=== PATIENT | female | born 1970 | race Caucasian/White ===

== ENCOUNTER 2017-02-13 15:17 | Emergency (ER) | payer MEDICAID ==
[~2017-02-13] VITALS: Ht 152.4 cm; Wt 73.7 kg
[~2017-02-13 15:17] MED LIST: ALPR0.5T6 PO; AMLO5TAB2 PO; ATOR20TA9 PO; CEFU500T PO; CIPR500T3 PO; CITA20TA5 PO; CITA20TA9 PO; EZET1TAB4 PO; FERR325T20 PO; FURO40TA6 PO; IBUP400T PO; INSU100C5 SQ-INSULIN; INSU100I13 SQ-INSULIN; INSU100I17 SQ-INSULIN; INSU100I7 SQ-INSULIN; INSU100V8 SQ; IRBE150T25 PO; LISI-167 PO; LISI40TA PO; MELO-184 PO; NITR100C PO; OXYC-302 PO; OXYC1TAB7 PO; OXYC5TAB3 PO; SODI650T PO; SUCR1ORA2 PO; SULF1TAB24 PO; TRAM-28 PO
[2017-02-13 15:46] VITALS: BP 141/66
[2017-02-13 16:13] LABS: HEMOGLOBIN 10.5 g/dL (11.7-16.4)
[2017-02-13 16:24] LABS: ASPARTATE AMINO TRANSFERASE 19 U/L (15-37); BLOOD UREA NITROGEN 17 mg/dL (7-18)
[2017-02-13] MEDS ORDERED: INSULIN SINGLE DOSE, ER SQ-INSULIN ONE (16:58)
[2017-02-13] MEDS ORDERED: INSULIN REGULAR 100 UNITS/ML, 3ML VIAL SQ-INSULIN ONE (17:00)
== END 2017-02-13 17:59 | disposition home or self-care (01) ==
LOC: ED 17:27
DX: R10.12 Left upper quadrant pain (principal); R10.32 Left lower quadrant pain; R11.2 Nausea with vomiting, unspecified; I12.9 Hypertensive chronic kidney disease with stage 1 through stage 4 chronic kidney disease, or unspecified chronic kidney disease; N18.3 Chronic kidney disease, stage 3 (moderate); Z99.2 Dependence on renal dialysis; E11.65 Type 2 diabetes mellitus with hyperglycemia; Z90.49 Acquired absence of other specified parts of digestive tract; Z90.710 Acquired absence of both cervix and uterus; Z88.6 Allergy status to analgesic agent; Z88.8 Allergy status to other drugs, medicaments and biological substances
CPT/HCPCS: 36415; 74020; 80048; 80076; 82040; 83690; 85025; 96372

== ENCOUNTER 2017-04-04 23:56 | Emergency (ER) | payer MEDICAID ==
[~2017-04-04] VITALS: Ht 165.1 cm; Wt 78.8 kg
[2017-04-05] MEDS ORDERED: MORPHINE SULFATE 4 MG/ML, 1ML ONE (00:56)
[2017-04-05] MEDS ORDERED: ONDANSETRON 2MG/ML, 2ML ONE (00:57)
[2017-04-05] MEDS ORDERED: FAMOTIDINE 20 MG/2 ML ONE (00:58)
[2017-04-05] MEDS ORDERED: SODIUM CHLORIDE 0.9% 1,000ML IVBOLUS ONE ×2 (01:00)
[2017-04-05] MEDS ORDERED: ONDANSETRON 2MG/ML, 2ML IVPush ONE (01:00)
[2017-04-05] MEDS ORDERED: FAMOTIDINE 20 MG/2 ML IVP ONE (01:00)
[2017-04-05] MEDS: MORPHINE SULFATE 4 MG/ML, 1ML IVPush PRN ×2 (01:00→01:01)
[2017-04-05] MEDS ORDERED: SODIUM CHLORIDE FLUSH 10ML SYR IVF ONE ×2 (01:00)
[2017-04-05 01:06] LABS: ASPARTATE AMINO TRANSFERASE 14 U/L (15-37); BLOOD UREA NITROGEN 50 mg/dL (7-18)
[2017-04-05] MEDS ORDERED: OMNIPAQUE 350 MG/ML, 100ML BOTTLE ONE (01:57)
[2017-04-05] MEDS ORDERED: DIPHENHYDRAMINE 25 MG CAPSULE ONE (02:06)
[2017-04-05 02:08] VITALS: BP 165/65
[2017-04-05] MEDS ORDERED: DIPHENHYDRAMINE 25 MG CAPSULE PO ONE (02:30)
== END 2017-04-05 02:28 | disposition home or self-care (01) ==
LOC: ED 23:59
DX: K59.00 Constipation, unspecified (principal); E78.5 Hyperlipidemia, unspecified; E11.65 Type 2 diabetes mellitus with hyperglycemia; I12.9 Hypertensive chronic kidney disease with stage 1 through stage 4 chronic kidney disease, or unspecified chronic kidney disease; N18.3 Chronic kidney disease, stage 3 (moderate); Z90.49 Acquired absence of other specified parts of digestive tract; Z90.710 Acquired absence of both cervix and uterus
CPT/HCPCS: 36415; 74177; 80053; 81001; 83690; 85025; 87086; 96361; 96374; 96375; 99285; J2405; J7030; Q0163; Q9967; S0028

== ENCOUNTER 2017-04-20 11:41 | Emergency (ER) | payer MEDICARE, MEDICAID ==
[2017-04-20] MEDS ORDERED: ONDANSETRON 2MG/ML, 2ML ONE (12:38)
[2017-04-20] MEDS ORDERED: DIPHENHYDRAMINE 50 MG/ML, 1ML ONE (12:38)
[2017-04-20] MEDS ORDERED: MORPHINE SULFATE 4 MG/ML, 1ML ONE (12:38)
[2017-04-21 16:53] LABS: ASPARTATE AMINO TRANSFERASE 28 U/L (15-37); BLOOD UREA NITROGEN 24 mg/dL (7-18); IS PT STATUS REG ER OR PRE ER? YES
== END 2017-04-20 15:24 ==
LOC: ED 11:41
DX: R07.89 Other chest pain (principal); E11.22 Type 2 diabetes mellitus with diabetic chronic kidney disease; N18.3 Chronic kidney disease, stage 3 (moderate); R10.12 Left upper quadrant pain; K59.00 Constipation, unspecified; Z88.6 Allergy status to analgesic agent
CPT/HCPCS: 36415; 74022; 80048; 80076; 81001; 82040; 83690; 84484; 84703; 85025; 87077; 87086; 87186; 93005; 99285

== ENCOUNTER 2017-04-26 01:26 | Emergency (ER) | payer MEDICARE, MEDICAID ==
[~2017-04-26] VITALS: Ht 165.1 cm; Wt 81.3 kg
[2017-04-26] MEDS ORDERED: MORPHINE SULFATE 4 MG/ML, 1ML ONE (01:56)
[2017-04-26] MEDS ORDERED: ONDANSETRON 2MG/ML, 2ML ONE (01:56)
[2017-04-26 01:59] LABS: PATH.CAST-FLAG NOT PRESENT; SPERM-FLAG NOT PRESENT; SRC-FLAG NOT PRESENT; XTAL-FLAG NOT PRESENT; YLC-FLAG NOT PRESENT
[2017-04-26] MEDS ORDERED: MORPHINE SULFATE 4 MG/ML, 1ML IVPush PRN (02:00)
[2017-04-26] MEDS ORDERED: ONDANSETRON 2MG/ML, 2ML IVPush ONE (02:00)
[2017-04-26 02:10] LABS: HCG UR OBC PASS
[2017-04-26 02:42] LABS: ASPARTATE AMINO TRANSFERASE 19 U/L (15-37); BLOOD UREA NITROGEN 49 mg/dL (7-18)
[2017-04-26] MEDS ORDERED: ONDANSETRON ODT 4 MG ONE (03:08)
[2017-04-26] MEDS ORDERED: DIPHENHYDRAMINE 25 MG CAPSULE ONE (03:43)
[2017-04-26 04:00] VITALS: BP 137/73
== END 2017-04-26 04:02 | disposition home or self-care (01) ==
LOC: ED 03:39
DX: N30.20 Other chronic cystitis without hematuria (principal); R10.84 Generalized abdominal pain; I12.0 Hypertensive chronic kidney disease with stage 5 chronic kidney disease or end stage renal disease; E11.22 Type 2 diabetes mellitus with diabetic chronic kidney disease; N18.6 End stage renal disease; E78.5 Hyperlipidemia, unspecified; Z90.49 Acquired absence of other specified parts of digestive tract; Z88.8 Allergy status to other drugs, medicaments and biological substances; Z88.6 Allergy status to analgesic agent
CPT/HCPCS: 36415; 74022; 76700; 80053; 81001; 81025; 83690; 85025; 87077; 87086; 96374; 96375; 99285; J2405; 87186

== ENCOUNTER 2017-05-31 13:12 | Day surgery (SDC) | payer MEDICAID ==
[~2017-05-31] VITALS: Ht 165.1 cm; Wt 82.0 kg
[~2017-05-31 13:12] MED LIST changes: +BUPIVACAINE/PF-EPI 0.5% 1:200K ONE; +CEFAZOLIN 1,000 MG ONE; +CHOL100011 PO; +HEPARIN 1,000 UNITS/ML, 10ML ONE; +ONDANSETRON 2MG/ML, 2ML ONE; +PROPOFOL 10 MG/ML, 20ML ONE; +THROMBIN 5,000 UNIT VIAL TP ONE
[2017-05-31] MEDS ORDERED: SODIUM CHLORIDE 0.9% 1,000 ML IV SCH (14:37)
[2017-05-31 15:12] VITALS: BP 144/84
[2017-05-31 15:20] LABS: HCG UR OBC PASS
[2017-05-31] MEDS ORDERED: MIDAZOLAM 1 MG/ML, 2ML ONE (15:30)
[2017-05-31] MEDS ORDERED: FENTANYL PF 250 MCG/5ML ONE (15:30)
[2017-05-31] MEDS ORDERED: DIPHENHYDRAMINE 50 MG/ML, 1ML IVPush PRN (16:30)
[2017-05-31] MEDS ORDERED: ACETAMINOPHEN 325 MG TABLET PO PRN (16:30)
[2017-05-31] MEDS ORDERED: ONDANSETRON 2MG/ML, 2ML IVPush PRN (16:30)
[2017-05-31] MEDS ORDERED: DIPHENHYDRAMINE 50 MG/ML, 1ML ONE (17:05)
[2017-05-31] MEDS ORDERED: FENTANYL PF 100 MCG/2ML ONE (17:05)
[2017-05-31] MEDS: FENTANYL PF 100 MCG/2ML IV PRN ×2 (17:15→17:25)
[2017-05-31] MEDS ORDERED: HYDROmorphone 1 MG/ML, 1ML ONE ×2 (17:19→17:43)
[2017-05-31] MEDS: HYDROmorphone 1 MG/ML, 1ML IV PRN ×5 (17:20→18:05)
[2017-05-31] MEDS ORDERED: LABETALOL 5MG/ML, 20ML ONE (17:46)
[2017-05-31] MEDS: LABETALOL 5MG/ML, 20ML IV PRN ×3 (17:48→18:05)
[2017-05-31] MEDS ORDERED: OXYcodone 5 MG/5 ML ORAL.SOL UDC ONE (18:26)
[2017-05-31] MEDS ORDERED: OXYcodone 5 MG/5 ML ORAL.SOL UDC PO PRN (18:30)
[2017-05-31] MEDS ORDERED: HEPARIN 1,000 UNITS/ML, 1ML IV ONE (19:30)
[2017-05-31] MEDS ORDERED: OXYcodone/APAP 5/325MG TABLET ONE (20:03)
[2017-05-31] MEDS ORDERED: OXYcodone/APAP 5/325MG TABLET PO ONE (20:30)
== END 2017-05-31 20:35 ==
LOC: OUT 13:12
PROVIDERS: ATTEND Surgery Vascular Surgery
DX: E11.22 Type 2 diabetes mellitus with diabetic chronic kidney disease (principal); N18.6 End stage renal disease; F32.9 Major depressive disorder, single episode, unspecified; Z88.8 Allergy status to other drugs, medicaments and biological substances; Z91.012 Allergy to eggs
CPT/HCPCS: 36415; 36821; 80047; 81025; 82962; 93005; J0690; J1170; J1200; J1644; J2250; J2405; J2704; J3010

== ENCOUNTER 2017-06-06 20:25 | Emergency (ER) | payer MEDICAID ==
[~2017-06-06] VITALS: Ht 165.1 cm; Wt 82.5 kg
[~2017-06-06 20:25] MED LIST changes: -BUPIVACAINE/PF-EPI 0.5% 1:200K ONE; -CEFAZOLIN 1,000 MG ONE; -HEPARIN 1,000 UNITS/ML, 10ML ONE; -ONDANSETRON 2MG/ML, 2ML ONE; -PROPOFOL 10 MG/ML, 20ML ONE; -THROMBIN 5,000 UNIT VIAL TP ONE
[2017-06-06] MEDS ORDERED: DIPHENHYDRAMINE 50 MG/ML, 1ML IM ONE (21:30)
[2017-06-06] MEDS ORDERED: NITROFURANTOIN (MACROBID) 100 MG CAPSULE PO ONE (21:30)
[2017-06-06] MEDS ORDERED: HYDROmorphone 1 MG/ML, 1ML IM ONE (21:30)
[2017-06-06] MEDS ORDERED: HYDROmorphone 1 MG/ML, 1ML ONE (21:35)
[2017-06-06] MEDS ORDERED: DIPHENHYDRAMINE 50 MG/ML, 1ML ONE (21:36)
[2017-06-06 21:38] LABS: PATH.CAST-FLAG NOT PRESENT; SPERM-FLAG NOT PRESENT; SRC-FLAG NOT PRESENT; XTAL-FLAG NOT PRESENT; YLC-FLAG NOT PRESENT
[2017-06-06 21:57] LABS: BLOOD UREA NITROGEN 46 mg/dL (7-18)
[2017-06-06 22:34] VITALS: BP 157/66
== END 2017-06-06 23:45 | disposition home or self-care (01) ==
LOC: ED 21:44
DX: N30.01 Acute cystitis with hematuria (principal); E11.22 Type 2 diabetes mellitus with diabetic chronic kidney disease; I12.9 Hypertensive chronic kidney disease with stage 1 through stage 4 chronic kidney disease, or unspecified chronic kidney disease; N18.3 Chronic kidney disease, stage 3 (moderate); G43.909 Migraine, unspecified, not intractable, without status migrainosus; E78.5 Hyperlipidemia, unspecified; E11.21 Type 2 diabetes mellitus with diabetic nephropathy; Z90.710 Acquired absence of both cervix and uterus; Z90.49 Acquired absence of other specified parts of digestive tract
CPT/HCPCS: 36415; 80048; 81001; 82040; 85025; 87077; 87086; 96372; 99284; J1170; J1200; 87186

== ENCOUNTER 2017-06-19 01:09 | Emergency (ER) | payer MEDICAID, OTHER ==
[~2017-06-19] VITALS: Ht 165.1 cm; Wt 85.0 kg
[2017-06-19 03:01] LABS: ASPARTATE AMINO TRANSFERASE 15 U/L (15-37); BLOOD UREA NITROGEN 50 mg/dL (7-18)
[2017-06-19 03:05] LABS: IS PT STATUS REG ER OR PRE ER? YES
[2017-06-19] MEDS ORDERED: HYDROmorphone 1 MG/ML, 1ML ONE (04:57)
[2017-06-19] MEDS ORDERED: HYDROmorphone 1 MG/ML, 1ML IM ONE (05:00)
[2017-06-19 05:04] VITALS: BP 157/74
[2017-06-19] MEDS ORDERED: DIPHENHYDRAMINE 25 MG CAPSULE ONE (05:25)
[2017-06-19] MEDS ORDERED: DIPHENHYDRAMINE 25 MG CAPSULE PO ONE (05:30)
== END 2017-06-19 05:52 | disposition home or self-care (01) ==
LOC: ED 05:18
DX: K29.00 Acute gastritis without bleeding (principal); I12.0 Hypertensive chronic kidney disease with stage 5 chronic kidney disease or end stage renal disease; N18.6 End stage renal disease; E11.22 Type 2 diabetes mellitus with diabetic chronic kidney disease; Z99.2 Dependence on renal dialysis
CPT/HCPCS: 36415; 71020; 80053; 83690; 84484; 85025; 93005; 96372; 99285; J1170; Q0163

== ENCOUNTER 2017-08-04 18:45 | Emergency (ER) | payer OTHER ==
[~2017-08-04] VITALS: Ht 165.1 cm; Wt 81.7 kg
[~2017-08-04 18:45] MED LIST changes: +EZET1TAB30 PO; -EZET1TAB4 PO; +FERR325T18 PO; -FERR325T20 PO; +IBUP-1221 PO; -IBUP400T PO; -MELO-184 PO; +MELO15TA24 PO; -SUCR1ORA2 PO; +SUCR1ORA5 PO; -TRAM-28 PO; +TRAM-47 PO
[2017-08-04] MEDS ORDERED: SODIUM CHLORIDE 0.9% 1,000ML IVBOLUS ONE (19:00)
[2017-08-04] MEDS ORDERED: ONDANSETRON 2MG/ML, 2ML IVPush ONE (19:00)
[2017-08-04 19:22] LABS: PH, VENOUS 7.405 pH (7.320-7.420)
[2017-08-04 19:26] LABS: PATH.CAST-FLAG NOT PRESENT; SPERM-FLAG NOT PRESENT; SRC-FLAG NOT PRESENT; XTAL-FLAG NOT PRESENT; YLC-FLAG NOT PRESENT
[2017-08-04 19:30] LABS: HEMATOCRIT 36.3 % (34.6-47.8); HEMOGLOBIN 11.9 g/dL (11.7-16.4); WHITE BLOOD COUNT 9.6 x10^3/uL (3.4-10)
[2017-08-04] MEDS ORDERED: MORPHINE SULFATE 4 MG/ML, 1ML ONE ×2 (19:33→20:52)
[2017-08-04] MEDS ORDERED: ONDANSETRON 2MG/ML, 2ML ONE ×2 (19:33→20:53)
[2017-08-04 19:34] LABS: ASPARTATE AMINO TRANSFERASE 35 U/L (15-37); BLOOD UREA NITROGEN 22 mg/dL (7-18)
[2017-08-04] MEDS: MORPHINE SULFATE 4 MG/ML, 1ML IVPush PRN ×2 (20:18→21:01)
[2017-08-04] MEDS ORDERED: OMNIPAQUE 350 MG/ML, 100ML BOTTLE ONE (20:51)
[2017-08-04] MEDS ORDERED: PROMETHAZINE 25 MG/ML, 1ML ONE (20:53)
[2017-08-04 22:07] VITALS: BP 144/88
== END 2017-08-04 22:09 | disposition home or self-care (01) ==
LOC: ED 19:20
DX: R19.7 Diarrhea, unspecified (principal); R11.2 Nausea with vomiting, unspecified; I12.9 Hypertensive chronic kidney disease with stage 1 through stage 4 chronic kidney disease, or unspecified chronic kidney disease; Z99.2 Dependence on renal dialysis; E11.65 Type 2 diabetes mellitus with hyperglycemia; E78.5 Hyperlipidemia, unspecified; Z90.49 Acquired absence of other specified parts of digestive tract; Z90.710 Acquired absence of both cervix and uterus; Z79.4 Long term (current) use of insulin; Z79.82 Long term (current) use of aspirin
CPT/HCPCS: 36415; 74177; 80053; 81001; 82010; 82803; 83690; 84703; 85025; 96361; 96374; 96375; 96376; 99285; J2405; J7030; Q9967

== ENCOUNTER 2017-09-04 12:04 | Inpatient (IN) | payer MEDICARE, MEDICAID ==
[~2017-09-04] VITALS: Ht 165.1 cm; Wt 80.6 kg
[2017-09-04] MEDS ORDERED: SODIUM CHLORIDE 0.9% 1,000ML IVBOLUS ONE ×2 (12:30→15:30)
[2017-09-04] MEDS ORDERED: SODIUM CHLORIDE FLUSH 10ML SYR IVF ONE (12:30)
[2017-09-04] MEDS ORDERED: MORPHINE SULFATE 4 MG/ML, 1ML IVPush PRN (12:30)
[2017-09-04] MEDS ORDERED: ONDANSETRON 2MG/ML, 2ML IVPush ONE ×2 (12:30→14:00)
[2017-09-04] MEDS ORDERED: morphine SULFATE 10 MG/ML, 1ML ONE (12:38)
[2017-09-04] MEDS ORDERED: ONDANSETRON 2MG/ML, 2ML ONE ×2 (12:38→14:00)
[2017-09-04 13:04] LABS: HEMATOCRIT 33.6 % (34.6-47.8); HEMOGLOBIN 11.1 g/dL (11.7-16.4); WHITE BLOOD COUNT 10.3 x10^3/uL (3.4-10)
[2017-09-04 13:16] LABS: BLOOD UREA NITROGEN 35 mg/dL (7-18)
[2017-09-04 13:22] LABS: ASPARTATE AMINO TRANSFERASE 18 U/L (15-37)
[2017-09-04 13:56] LABS: PH, VENOUS 7.308 pH (7.320-7.420)
[2017-09-04] MEDS ORDERED: DIPHENHYDRAMINE 50 MG/ML, 1ML IVPush ONE (14:00)
[2017-09-04] MEDS ORDERED: DIPHENHYDRAMINE 50 MG/ML, 1ML ONE (14:00)
[2017-09-04] MEDS ORDERED: PROMETHAZINE 25 MG/ML, 1ML IM PRN ×2 (15:30→20:30)
[2017-09-04] MEDS ORDERED: HYDROmorphone 1 MG/ML, 1ML IV ONE ×3 (15:30→17:00)
[2017-09-04] MEDS ORDERED: CHOL100011 PO (15:36)
[2017-09-04] MEDS ORDERED: INSU100V8 SQ (15:36)
[2017-09-04] MEDS ORDERED: CITA10TA8 PO (15:36)
[2017-09-04] MEDS ORDERED: ATOR20TA PO (15:36)
[2017-09-04] MEDS ORDERED: ASCO-96 PO (15:36)
[2017-09-04] MEDS ORDERED: AMLO10TA2 PO (15:36)
[2017-09-04] MEDS ORDERED: INSU100C5 SQ-INSULIN (15:36)
[2017-09-04] MEDS ORDERED: Benadryl INJ SQ (15:36)
[2017-09-04] MEDS ORDERED: hydrALAzine 20 MG/ML, 1ML IVPush PRN ×2 (16:00→20:30)
[2017-09-04] MEDS ORDERED: BISACODYL 10 MG SUPP PR PRN ×2 (16:00→20:30)
[2017-09-04] MEDS ORDERED: LABETALOL 5MG/ML, 20ML IVPush PRN ×2 (16:00→20:30)
[2017-09-04] MEDS ORDERED: POLYETHYLENE GLYCOL 17 GM PACKET PO PRN ×2 (16:00→20:30)
[2017-09-04] MEDS: HEPARIN 5,000 UNITS/ML, 1ML SQ SCH (16:00)
[2017-09-04] MEDS ORDERED: DIPHENHYDRAMINE 25 MG CAPSULE PO PRN ×2 (16:30→20:30)
[2017-09-04] MEDS ORDERED: ERTAPENEM 0.5 GM in SODIUM CHLORIDE 0.9% 50 ML IV ONE (16:30)
[2017-09-04] MEDS ORDERED: PROMETHAZINE 25 MG/ML, 1ML ONE (16:52)
[2017-09-04] MEDS ORDERED: HYDROmorphone 1 MG/ML, 1ML ONE (16:52)
[2017-09-04] MEDS ORDERED: INSULIN DETEMIR 100 UNITS/ML, PEN SQ-INSULIN SCH (17:00)
[2017-09-04] MEDS: OXYcodone IR 5MG TABLET PO PRN (20:08)
[2017-09-04] MEDS: ACETAMINOPHEN 325 MG TABLET PO PRN (20:08)
[2017-09-04] MEDS: INSULIN ASPART 100 UNITS/ML, PEN SQ-INSULIN SCH ×2 (21:00→22:42)
[2017-09-04 21:30] VITALS: BP 98/55
[2017-09-04 22:11] VITALS: BP 98/55
[2017-09-04] MEDS: ATORVASTATIN 20 MG TABLET PO SCH (22:40)
[2017-09-04 22:48] LABS: POTASSIUM,URINE RANDOM 20 mmol/L
[2017-09-04] MEDS: morphine SULFATE 10 MG/ML, 1ML IVPush PRN (22:55)
[2017-09-04 23:55] LABS: HEP B SURF. AB > 1000.0 mIU/mL (0.0-10.0)
[2017-09-05] MEDS: HEPARIN 5,000 UNITS/ML, 1ML SQ SCH ×3 (01:47→16:26)
[2017-09-05 02:55] VITALS: BP 138/67
[2017-09-05] MEDS: morphine SULFATE 10 MG/ML, 1ML IVPush PRN ×5 (03:02→21:13)
[2017-09-05 05:26] LABS: HEMATOCRIT 33.8 % (34.6-47.8); HEMOGLOBIN 11.3 g/dL (11.7-16.4); WHITE BLOOD COUNT 10.9 x10^3/uL (3.4-10)
[2017-09-05 05:36] LABS: BLOOD UREA NITROGEN 19 mg/dL (7-18)
[2017-09-05 05:42] LABS: ASPARTATE AMINO TRANSFERASE 19 U/L (15-37); FERRITIN 295.3 ng/mL (8-252); TOTAL IRON BINDING CAPACITY 170 mcg/dL (250-450)
[2017-09-05 06:55] VITALS: BP 109/72
[2017-09-05] MEDS: SENNA/DOCUSATE TABLET PO SCH (08:42)
[2017-09-05] MEDS: AMLODIPINE 5 MG TABLET PO SCH (08:42)
[2017-09-05] MEDS: CHOLECALCIFEROL 1,000 UNIT TABLET PO SCH (08:42)
[2017-09-05] MEDS: CITALOPRAM 10 MG TABLET PO SCH (08:43)
[2017-09-05] MEDS: INSULIN ASPART 100 UNITS/ML, PEN SQ-INSULIN SCH ×4 (08:43→21:11)
[2017-09-05] MEDS ORDERED: DIPHENHYDRAMINE 50 MG/ML, 1ML IVPush ONE (09:00)
[2017-09-05] MEDS ORDERED: CHOLECALCIFEROL 1,000 UNIT TABLET PO SCH (09:00)
[2017-09-05] MEDS ORDERED: SENNA/DOCUSATE TABLET PO SCH (09:00)
[2017-09-05] MEDS ORDERED: DIPHENHYDRAMINE 50 MG/ML, 1ML IVPush SCH (09:00)
[2017-09-05] MEDS ORDERED: AMLODIPINE 5 MG TABLET PO SCH (09:00)
[2017-09-05] MEDS ORDERED: CITALOPRAM 10 MG TABLET PO SCH (09:00)
[2017-09-05] MEDS: ONDANSETRON 2MG/ML, 2ML IVPush PRN ×2 (09:54→16:37)
[2017-09-05] MEDS: ERTAPENEM 0.5 GM in SODIUM CHLORIDE 0.9% 50 ML IV SCH (09:55)
[2017-09-05 12:53] VITALS: BP 118/71
[2017-09-05] MEDS: LORATADINE 10 MG TABLET PO SCH (13:22)
[2017-09-05] MEDS: INSULIN DETEMIR 100 UNITS/ML, PEN SQ-INSULIN SCH (16:38)
[2017-09-05 19:49] VITALS: BP 111/57
[2017-09-05] MEDS: OXYcodone IR 5MG TABLET PO PRN (19:51)
[2017-09-05] MEDS: ATORVASTATIN 20 MG TABLET PO SCH (21:10)
[2017-09-05] MEDS: DIPHENHYDRAMINE 50 MG/ML, 1ML IVPush PRN (22:31)
[2017-09-06] MEDS: morphine SULFATE 10 MG/ML, 1ML IVPush PRN ×6 (00:49→20:03)
[2017-09-06 03:29] VITALS: BP 102/53
[2017-09-06] MEDS: OXYcodone IR 5MG TABLET PO PRN (03:41)
[2017-09-06] MEDS: ONDANSETRON 2MG/ML, 2ML IVPush PRN ×3 (03:42→21:01)
[2017-09-06 05:58] LABS: BLOOD UREA NITROGEN 27 mg/dL (7-18)
[2017-09-06 06:06] LABS: HEMATOCRIT 34.5 % (34.6-47.8); HEMOGLOBIN 11.4 g/dL (11.7-16.4); WHITE BLOOD COUNT 15.1 x10^3/uL (3.4-10)
[2017-09-06 08:20] VITALS: BP 116/56
[2017-09-06] MEDS: INSULIN ASPART 100 UNITS/ML, PEN SQ-INSULIN SCH ×4 (08:30→21:03)
[2017-09-06] MEDS: SENNA/DOCUSATE TABLET PO SCH (08:30)
[2017-09-06] MEDS: HEPARIN 5,000 UNITS/ML, 1ML SQ SCH ×3 (08:30→16:09)
[2017-09-06] MEDS: LORATADINE 10 MG TABLET PO SCH (08:31)
[2017-09-06] MEDS: AMLODIPINE 5 MG TABLET PO SCH (08:31)
[2017-09-06] MEDS: CHOLECALCIFEROL 1,000 UNIT TABLET PO SCH (08:31)
[2017-09-06] MEDS: CITALOPRAM 10 MG TABLET PO SCH (08:32)
[2017-09-06] MEDS: DIPHENHYDRAMINE 50 MG/ML, 1ML IVPush PRN ×3 (09:47→21:01)
[2017-09-06] MEDS: ERTAPENEM 0.5 GM in SODIUM CHLORIDE 0.9% 50 ML IV SCH (09:47)
[2017-09-06 16:30] VITALS: BP 134/94
[2017-09-06] MEDS: INSULIN DETEMIR 100 UNITS/ML, PEN SQ-INSULIN SCH (17:03)
[2017-09-06] MEDS: ATORVASTATIN 20 MG TABLET PO SCH (21:01)
[2017-09-06 21:20] VITALS: BP 124/59
[2017-09-07 00:22] VITALS: BP 152/66
[2017-09-07] MEDS: HEPARIN 5,000 UNITS/ML, 1ML SQ SCH ×4 (00:52→23:52)
[2017-09-07] MEDS: morphine SULFATE 10 MG/ML, 1ML IVPush PRN ×5 (04:31→20:25)
[2017-09-07] MEDS: ONDANSETRON 2MG/ML, 2ML IVPush PRN (04:31)
[2017-09-07 05:24] LABS: HEMATOCRIT 32.6 % (34.6-47.8); HEMOGLOBIN 10.8 g/dL (11.7-16.4); WHITE BLOOD COUNT 14.3 x10^3/uL (3.4-10)
[2017-09-07 05:36] LABS: ASPARTATE AMINO TRANSFERASE 17 U/L (15-37); BLOOD UREA NITROGEN 33 mg/dL (7-18)
[2017-09-07] MEDS: DIPHENHYDRAMINE 50 MG/ML, 1ML IVPush PRN ×3 (06:15→20:24)
[2017-09-07] MEDS: INSULIN ASPART 100 UNITS/ML, PEN SQ-INSULIN SCH ×4 (07:00→20:34)
[2017-09-07 08:40] VITALS: BP 120/56
[2017-09-07] MEDS: CITALOPRAM 10 MG TABLET PO SCH (08:44)
[2017-09-07] MEDS: AMLODIPINE 5 MG TABLET PO SCH (08:44)
[2017-09-07] MEDS: SENNA/DOCUSATE TABLET PO SCH (08:44)
[2017-09-07] MEDS: LORATADINE 10 MG TABLET PO SCH (08:44)
[2017-09-07] MEDS: ERGOCALCIFEROL 50,000 UNIT CAPSULE PO SCH (08:44)
[2017-09-07] MEDS ORDERED: CHOLECALCIFEROL 1,000 UNIT TABLET PO SCH (09:00)
[2017-09-07] MEDS ORDERED: VANCOMYCIN PMX 1GM/200ML 200 ML IV ONE (10:00)
[2017-09-07] MEDS ORDERED: VANCOMYCIN PER PHARMACY MC PRN (10:00)
[2017-09-07] MEDS ORDERED: PHARMACOKINETIC MONITORING MC PRN (10:30)
[2017-09-07] MEDS ORDERED: VANCOMYCIN 1,200 MG in SODIUM CHLORIDE 0.9% 250 ML IV ONE (10:30)
[2017-09-07] MEDS: ERTAPENEM 0.5 GM in SODIUM CHLORIDE 0.9% 50 ML IV SCH (11:01)
[2017-09-07 15:57] VITALS: BP 127/65
[2017-09-07] MEDS: ACETAMINOPHEN 325 MG TABLET PO PRN (16:15)
[2017-09-07] MEDS: OXYcodone IR 5MG TABLET PO PRN (16:15)
[2017-09-07] MEDS: INSULIN DETEMIR 100 UNITS/ML, PEN SQ-INSULIN SCH (16:16)
[2017-09-07 20:20] VITALS: BP 104/56
[2017-09-07] MEDS: ATORVASTATIN 20 MG TABLET PO SCH (20:34)
[2017-09-08 00:12] VITALS: BP 121/62
[2017-09-08] MEDS: morphine SULFATE 10 MG/ML, 1ML IVPush PRN ×6 (00:24→23:33)
[2017-09-08] MEDS: DIPHENHYDRAMINE 50 MG/ML, 1ML IVPush PRN ×4 (02:40→20:02)
[2017-09-08 05:36] LABS: HEMATOCRIT 30.8 % (34.6-47.8); HEMOGLOBIN 10.3 g/dL (11.7-16.4); WHITE BLOOD COUNT 12.3 x10^3/uL (3.4-10)
[2017-09-08 05:53] LABS: ASPARTATE AMINO TRANSFERASE 14 U/L (15-37); BLOOD UREA NITROGEN 24 mg/dL (7-18)
[2017-09-08] MEDS: INSULIN ASPART 100 UNITS/ML, PEN SQ-INSULIN SCH ×4 (07:47→20:46)
[2017-09-08 08:00] VITALS: BP 101/50
[2017-09-08] MEDS: HEPARIN 5,000 UNITS/ML, 1ML SQ SCH ×3 (08:31→23:37)
[2017-09-08] MEDS: LORATADINE 10 MG TABLET PO SCH (08:33)
[2017-09-08] MEDS: ERGOCALCIFEROL 50,000 UNIT CAPSULE PO SCH (08:33)
[2017-09-08] MEDS: SENNA/DOCUSATE TABLET PO SCH (08:33)
[2017-09-08] MEDS: CITALOPRAM 10 MG TABLET PO SCH (08:33)
[2017-09-08] MEDS: AMLODIPINE 5 MG TABLET PO SCH (09:00)
[2017-09-08 10:15] VITALS: BP 126/64
[2017-09-08] MEDS: OXYcodone IR 5MG TABLET PO PRN (10:42)
[2017-09-08] MEDS ORDERED: VANCOMYCIN 1,200 MG in SODIUM CHLORIDE 0.9% 250 ML IV ONE ×2 (12:00→16:00)
[2017-09-08] MEDS: ONDANSETRON 2MG/ML, 2ML IVPush PRN ×2 (13:13→20:26)
[2017-09-08 14:30] VITALS: BP 138/67
[2017-09-08] MEDS: ERTAPENEM 0.5 GM in SODIUM CHLORIDE 0.9% 50 ML IV SCH (16:32)
[2017-09-08] MEDS: INSULIN DETEMIR 100 UNITS/ML, PEN SQ-INSULIN SCH (17:09)
[2017-09-08 20:00] VITALS: BP 116/68
[2017-09-08] MEDS: ATORVASTATIN 20 MG TABLET PO SCH (20:02)
[2017-09-09] MEDS: DIPHENHYDRAMINE 50 MG/ML, 1ML IVPush PRN ×4 (03:19→21:07)
[2017-09-09] MEDS: morphine SULFATE 10 MG/ML, 1ML IVPush PRN ×5 (03:19→21:07)
[2017-09-09 03:27] VITALS: BP 137/69
[2017-09-09 06:00] LABS: HEMATOCRIT 29.4 % (34.6-47.8); HEMOGLOBIN 9.9 g/dL (11.7-16.4); WHITE BLOOD COUNT 11.6 x10^3/uL (3.4-10)
[2017-09-09 06:11] LABS: BLOOD UREA NITROGEN 34 mg/dL (7-18)
[2017-09-09 06:14] LABS: ASPARTATE AMINO TRANSFERASE 14 U/L (15-37)
[2017-09-09] MEDS: INSULIN ASPART 100 UNITS/ML, PEN SQ-INSULIN SCH ×4 (07:00→21:00)
[2017-09-09] MEDS: LORATADINE 10 MG TABLET PO SCH (07:57)
[2017-09-09] MEDS: CITALOPRAM 10 MG TABLET PO SCH (07:57)
[2017-09-09] MEDS: HEPARIN 5,000 UNITS/ML, 1ML SQ SCH ×2 (07:57→15:45)
[2017-09-09] MEDS: SENNA/DOCUSATE TABLET PO SCH (07:58)
[2017-09-09 08:06] VITALS: BP 137/67
[2017-09-09] MEDS: ERGOCALCIFEROL 50,000 UNIT CAPSULE PO SCH (11:01)
[2017-09-09] MEDS: AMLODIPINE 5 MG TABLET PO SCH (11:44)
[2017-09-09 13:29] VITALS: BP_SYST 120; BP_SYST 137; BP_DIAS 69; BP_DIAS 78
[2017-09-09] MEDS ORDERED: FENTANYL PF 100 MCG/2ML ONE (14:16)
[2017-09-09] MEDS ORDERED: FLUMAZENIL 0.1 MG/1 ML, 5ML ONE ×2 (14:16→15:47)
[2017-09-09] MEDS ORDERED: MIDAZOLAM 1 MG/ML, 5ML ONE (14:16)
[2017-09-09] MEDS ORDERED: NALOXONE 1 MG/ML, 2ML ONE ×2 (14:16→15:47)
[2017-09-09] MEDS ORDERED: LIDOCAINE 1%, 20ML ONE (14:17)
[2017-09-09] MEDS: INSULIN DETEMIR 100 UNITS/ML, PEN SQ-INSULIN SCH (15:54)
[2017-09-09] MEDS: ERTAPENEM 0.5 GM in SODIUM CHLORIDE 0.9% 50 ML IV SCH (16:07)
[2017-09-09] MEDS: ONDANSETRON 2MG/ML, 2ML IVPush PRN (18:20)
[2017-09-09 19:54] VITALS: BP 130/54
[2017-09-09] MEDS: ATORVASTATIN 20 MG TABLET PO SCH (21:07)
[2017-09-10 01:50] VITALS: BP 115/56
[2017-09-10] MEDS: HEPARIN 5,000 UNITS/ML, 1ML SQ SCH ×3 (02:33→19:00)
[2017-09-10] MEDS: morphine SULFATE 10 MG/ML, 1ML IVPush PRN (02:34)
[2017-09-10 05:11] LABS: HEMATOCRIT 29.5 % (34.6-47.8); HEMOGLOBIN 9.6 g/dL (11.7-16.4); WHITE BLOOD COUNT 10.5 x10^3/uL (3.4-10)
[2017-09-10 06:37] LABS: BLOOD UREA NITROGEN 27 mg/dL (7-18)
[2017-09-10 06:40] LABS: ASPARTATE AMINO TRANSFERASE 13 U/L (15-37)
[2017-09-10] MEDS: OXYcodone IR 5MG TABLET PO PRN ×3 (07:32→22:19)
[2017-09-10] MEDS: DIPHENHYDRAMINE 50 MG/ML, 1ML IVPush PRN (07:33)
[2017-09-10] MEDS: INSULIN ASPART 100 UNITS/ML, PEN SQ-INSULIN SCH ×4 (08:00→21:00)
[2017-09-10] MEDS: CITALOPRAM 10 MG TABLET PO SCH (08:55)
[2017-09-10] MEDS: AMLODIPINE 5 MG TABLET PO SCH (08:56)
[2017-09-10] MEDS: ERGOCALCIFEROL 50,000 UNIT CAPSULE PO SCH (08:56)
[2017-09-10] MEDS: LORATADINE 10 MG TABLET PO SCH (08:56)
[2017-09-10] MEDS: SENNA/DOCUSATE TABLET PO SCH (08:56)
[2017-09-10 09:00] VITALS: BP 122/68
[2017-09-10] MEDS ORDERED: CALC667C PO (14:40)
[2017-09-10] MEDS ORDERED: LORA10TA75 PO (14:40)
[2017-09-10] MEDS ORDERED: CEFD300C37 PO (14:40)
[2017-09-10] MEDS ORDERED: ERGO500017 PO ×2 (14:40→14:50)
[2017-09-10] MEDS: CALCIUM ACETATE 667 MG CAPSULE PO SCH ×2 (16:00→21:00)
[2017-09-10 16:37] VITALS: BP 122/74
[2017-09-10] MEDS: ERTAPENEM 0.5 GM in SODIUM CHLORIDE 0.9% 50 ML IV SCH (17:52)
[2017-09-10] MEDS: INSULIN DETEMIR 100 UNITS/ML, PEN SQ-INSULIN SCH (17:53)
[2017-09-10 20:30] VITALS: BP 102/50
[2017-09-10] MEDS: ATORVASTATIN 20 MG TABLET PO SCH (21:00)
[2017-09-11 00:23] VITALS: BP 138/62
[2017-09-11] MEDS: HEPARIN 5,000 UNITS/ML, 1ML SQ SCH ×3 (03:00→20:20)
[2017-09-11] MEDS: OXYcodone IR 5MG TABLET PO PRN ×4 (04:09→20:21)
[2017-09-11 06:07] LABS: HEMATOCRIT 28.3 % (34.6-47.8); HEMOGLOBIN 9.5 g/dL (11.7-16.4); WHITE BLOOD COUNT 11.1 x10^3/uL (3.4-10)
[2017-09-11 06:25] VITALS: BP 156/78
[2017-09-11 06:25] LABS: ASPARTATE AMINO TRANSFERASE 15 U/L (15-37); BLOOD UREA NITROGEN 37 mg/dL (7-18)
[2017-09-11] MEDS: INSULIN ASPART 100 UNITS/ML, PEN SQ-INSULIN SCH ×4 (07:00→19:54)
[2017-09-11] MEDS: CALCIUM ACETATE 667 MG CAPSULE PO SCH ×3 (08:32→20:20)
[2017-09-11] MEDS: LORATADINE 10 MG TABLET PO SCH (08:32)
[2017-09-11] MEDS: SENNA/DOCUSATE TABLET PO SCH (08:32)
[2017-09-11] MEDS: CITALOPRAM 10 MG TABLET PO SCH (08:32)
[2017-09-11] MEDS: ERGOCALCIFEROL 50,000 UNIT CAPSULE PO SCH (08:32)
[2017-09-11] MEDS: AMLODIPINE 5 MG TABLET PO SCH (12:01)
[2017-09-11] MEDS: ACETAMINOPHEN 325 MG TABLET PO PRN (12:02)
[2017-09-11 13:12] VITALS: BP 115/61
[2017-09-11] MEDS ORDERED: BISACODYL 10 MG SUPP PR PRN (15:30)
[2017-09-11] MEDS ORDERED: PHARMACOKINETIC MONITORING MC PRN (15:30)
[2017-09-11] MEDS ORDERED: POLYETHYLENE GLYCOL 17 GM PACKET PO PRN (15:30)
[2017-09-11] MEDS ORDERED: LABETALOL 5MG/ML, 20ML IVPush PRN (15:30)
[2017-09-11] MEDS ORDERED: VANCOMYCIN PER PHARMACY MC PRN (15:30)
[2017-09-11] MEDS ORDERED: ACETAMINOPHEN 325 MG TABLET PO PRN (15:30)
[2017-09-11] MEDS: ONDANSETRON 2MG/ML, 2ML IVPush PRN (15:45)
[2017-09-11] MEDS: ERTAPENEM 0.5 GM in SODIUM CHLORIDE 0.9% 50 ML IV SCH (15:58)
[2017-09-11] MEDS ORDERED: INSULIN DETEMIR 100 UNITS/ML, PEN SQ-INSULIN SCH (17:00)
[2017-09-11 18:35] VITALS: BP 130/66
[2017-09-11] MEDS: ATORVASTATIN 20 MG TABLET PO SCH (20:20)
[2017-09-12] MEDS: OXYcodone IR 5MG TABLET PO PRN ×2 (00:54→06:15)
[2017-09-12] MEDS: ONDANSETRON 2MG/ML, 2ML IVPush PRN (00:54)
[2017-09-12 00:56] VITALS: BP 152/70
[2017-09-12] MEDS: HEPARIN 5,000 UNITS/ML, 1ML SQ SCH (03:00)
[2017-09-12 05:21] LABS: HEMATOCRIT 29.2 % (34.6-47.8); HEMOGLOBIN 9.6 g/dL (11.7-16.4); WHITE BLOOD COUNT 10.5 x10^3/uL (3.4-10)
[2017-09-12 05:40] LABS: ASPARTATE AMINO TRANSFERASE 19 U/L (15-37); BLOOD UREA NITROGEN 23 mg/dL (7-18)
[2017-09-12 08:15] VITALS: BP 187/82
[2017-09-12] MEDS: SENNA/DOCUSATE TABLET PO SCH (08:27)
[2017-09-12] MEDS: ERGOCALCIFEROL 50,000 UNIT CAPSULE PO SCH (08:27)
[2017-09-12] MEDS: CITALOPRAM 10 MG TABLET PO SCH (08:27)
[2017-09-12] MEDS: LORATADINE 10 MG TABLET PO SCH (08:27)
[2017-09-12] MEDS: CALCIUM ACETATE 667 MG CAPSULE PO SCH (08:27)
[2017-09-12] MEDS: AMLODIPINE 5 MG TABLET PO SCH (08:27)
[2017-09-12] MEDS: INSULIN ASPART 100 UNITS/ML, PEN SQ-INSULIN SCH (08:30)
== END 2017-09-12 11:47 | disposition home or self-care (01) | DRG 871 ==
LOC: ED 14:33 → EDIP 15:06 → 4WST 17:41
PROVIDERS: ADMIT Hospitalist; ATTEND Hospitalist
PROC: 0T9B70Z Drainage of Bladder with Drainage Device, Via Natural or Artificial Opening (ICD-10-PCS; principal; 2017-09-04)
PROC: 0JPT3XZ Removal of Tunneled Vascular Access Device from Trunk Subcutaneous Tissue and Fascia, Percutaneous Approach (ICD-10-PCS; 2017-09-09)
PROC: 0JH63XZ Insertion of Tunneled Vascular Access Device into Chest Subcutaneous Tissue and Fascia, Percutaneous Approach (ICD-10-PCS; 2017-09-09)
PROC: 02PY33Z Removal of Infusion Device from Great Vessel, Percutaneous Approach (ICD-10-PCS; 2017-09-09)
PROC: 02H633Z Insertion of Infusion Device into Right Atrium, Percutaneous Approach (ICD-10-PCS; 2017-09-09)
PROC: B2141ZZ Fluoroscopy of Right Heart using Low Osmolar Contrast (ICD-10-PCS; 2017-09-09)
PROC: 5A1D70Z Performance of Urinary Filtration, Intermittent, Less than 6 Hours Per Day (ICD-10-PCS; 2017-09-09)
DX: A41.9 Sepsis, unspecified organism (principal); N18.6 End stage renal disease; E11.22 Type 2 diabetes mellitus with diabetic chronic kidney disease; I12.0 Hypertensive chronic kidney disease with stage 5 chronic kidney disease or end stage renal disease; E11.65 Type 2 diabetes mellitus with hyperglycemia; N25.0 Renal osteodystrophy; E83.39 Other disorders of phosphorus metabolism; N39.0 Urinary tract infection, site not specified; T82.868A Thrombosis due to vascular prosthetic devices, implants and grafts, initial encounter; E87.1 Hypo-osmolality and hyponatremia; N10 Acute pyelonephritis; D25.9 Leiomyoma of uterus, unspecified; D63.1 Anemia in chronic kidney disease; E78.5 Hyperlipidemia, unspecified; L29.9 Pruritus, unspecified; G89.29 Other chronic pain; F32.9 Major depressive disorder, single episode, unspecified; E83.51 Hypocalcemia; I51.7 Cardiomegaly; Y83.2 Surgical operation with anastomosis, bypass or graft as the cause of abnormal reaction of the patient, or of later complication, without mention of misadventure at the time of the procedure; Z79.4 Long term (current) use of insulin; Z83.3 Family history of diabetes mellitus; Z86.718 Personal history of other venous thrombosis and embolism; Z87.442 Personal history of urinary calculi; Z99.2 Dependence on renal dialysis; Z88.8 Allergy status to other drugs, medicaments and biological substances; Z88.6 Allergy status to analgesic agent; Z91.012 Allergy to eggs
CPT/HCPCS: 36415; 36581; 75984; 76536; 76700; 80053; 80061; 80069; 80202; 81001; 82010; 82306; 82436; 82728; 82803; 82962; 83036; 83540; 83550; 83690; 83735; 83970; 84100; 84133; 84300; 84439; 84443; 84550; 84703; 85025; 86704; 86706; 87040; 87077; 87086; 87340; 93306; 96372; 96374; 96375; 96376; 99156; 99157; J1170; J1335; J1644; J1815; J2250; J2405; J2550; J3010; J3370; J3490; C1750; C1769; J1200; J1642; J2270; J2310; J7030; J7050; Q0163

== ENCOUNTER 2017-09-30 12:49 | Emergency (ER) | payer MEDICAID ==
[~2017-09-30] VITALS: Ht 165.1 cm; Wt 83.0 kg
[~2017-09-30 12:49] MED LIST changes: +AMLO10TA2 PO; +ASCO-96 PO; +ATOR20TA PO; +Benadryl INJ SQ; +CALC667C PO; +CEFD300C37 PO; +CITA10TA8 PO; +ERGO500017 PO; +LORA10TA75 PO
[2017-09-30] MEDS ORDERED: MAALOX/HYOSCYAMINE/LIDOCAINE 45 ML BTL ONE (13:30)
[2017-09-30] MEDS ORDERED: MAALOX/HYOSCYAMINE/LIDOCAINE 45 ML BTL PO ONE (13:30)
[2017-09-30] MEDS ORDERED: LORazepam 1MG TABLET ONE (13:30)
[2017-09-30] MEDS ORDERED: LORazepam 1MG TABLET PO ONE (13:30)
[2017-09-30 13:41] LABS: HEMATOCRIT 36.6 % (34.6-47.8); WHITE BLOOD COUNT 8.9 x10^3/uL (3.4-10)
[2017-09-30 13:52] LABS: BLOOD UREA NITROGEN 29 mg/dL (7-18)
[2017-09-30 13:58] LABS: IS PT STATUS REG ER OR PRE ER? YES
[2017-09-30 14:49] VITALS: BP 159/73
== END 2017-09-30 14:51 | disposition home or self-care (01) ==
LOC: ED 13:18
DX: R07.2 Precordial pain (principal); F41.1 Generalized anxiety disorder; E87.5 Hyperkalemia; E78.5 Hyperlipidemia, unspecified; E11.22 Type 2 diabetes mellitus with diabetic chronic kidney disease; I12.9 Hypertensive chronic kidney disease with stage 1 through stage 4 chronic kidney disease, or unspecified chronic kidney disease; N18.3 Chronic kidney disease, stage 3 (moderate); E11.65 Type 2 diabetes mellitus with hyperglycemia
CPT/HCPCS: 36415; 71010; 80048; 82040; 84484; 85025; 93005; 99285

== ENCOUNTER 2017-10-08 23:52 | Emergency (ER) | payer MEDICAID ==
[~2017-10-08] VITALS: Ht 165.1 cm; Wt 80.2 kg
[2017-10-09] MEDS ORDERED: morphine SULFATE 10 MG/ML, 1ML ONE ×2 (00:30→01:37)
[2017-10-09] MEDS ORDERED: ONDANSETRON 2MG/ML, 2ML ONE (00:30)
[2017-10-09] MEDS ORDERED: ONDANSETRON 2MG/ML, 2ML IVPush ONE (00:30)
[2017-10-09 00:41] LABS: HEMATOCRIT 33.5 % (34.6-47.8); WHITE BLOOD COUNT 12.2 x10^3/uL (3.4-10)
[2017-10-09 00:42] LABS: PATH.CAST-FLAG NOT PRESENT; SPERM-FLAG NOT PRESENT; SRC-FLAG NOT PRESENT; XTAL-FLAG NOT PRESENT; YLC-FLAG NOT PRESENT
[2017-10-09] MEDS: MORPHINE SULFATE 4 MG/ML, 1ML IVPush PRN ×2 (00:42→01:42)
[2017-10-09] MEDS ORDERED: DIPHENHYDRAMINE 50 MG/ML, 1ML ONE (00:48)
[2017-10-09 00:51] LABS: ASPARTATE AMINO TRANSFERASE 13 U/L (15-37); BLOOD UREA NITROGEN 58 mg/dL (7-18)
[2017-10-09] MEDS ORDERED: DIPHENHYDRAMINE 50 MG/ML, 1ML IVPush ONE (01:00)
[2017-10-09 02:04] VITALS: BP 155/84
== END 2017-10-09 02:15 | disposition home or self-care (01) ==
LOC: ED 23:59
DX: R10.9 Unspecified abdominal pain (principal); E78.5 Hyperlipidemia, unspecified; G43.909 Migraine, unspecified, not intractable, without status migrainosus; E11.22 Type 2 diabetes mellitus with diabetic chronic kidney disease; I12.0 Hypertensive chronic kidney disease with stage 5 chronic kidney disease or end stage renal disease; E87.5 Hyperkalemia; N18.6 End stage renal disease; Z99.2 Dependence on renal dialysis; Z90.49 Acquired absence of other specified parts of digestive tract
CPT/HCPCS: 36415; 74176; 80053; 81001; 83690; 85025; 96374; 96375; 96376; 99285; J1200; J2405

== ENCOUNTER 2017-10-27 20:28 | Emergency (ER) | payer MEDICAID, MEDICARE ==
[~2017-10-27] VITALS: Ht 157.5 cm; Wt 77.5 kg
[2017-10-27] MEDS ORDERED: DIPH25CA61 PO (20:39)
[2017-10-27] MEDS ORDERED: METOCLOPRAMIDE 5 MG/ML, 2ML IVPush ONE (21:00)
[2017-10-27] MEDS ORDERED: MORPHINE SULFATE 4 MG/ML, 1ML IVPush PRN (21:00)
[2017-10-27] MEDS ORDERED: SODIUM CHLORIDE FLUSH 10ML SYR IVF ONE (21:00)
[2017-10-27 21:01] LABS: HEMATOCRIT 36.5 % (34.6-47.8); HEMOGLOBIN 12.1 g/dL (11.7-16.4); WHITE BLOOD COUNT 12.4 x10^3/uL (3.4-10)
[2017-10-27 21:06] LABS: PATH.CAST-FLAG NOT PRESENT; SPERM-FLAG NOT PRESENT; SRC-FLAG NOT PRESENT; XTAL-FLAG NOT PRESENT; YLC-FLAG NOT PRESENT
[2017-10-27] MEDS ORDERED: METOCLOPRAMIDE 5 MG/ML, 2ML ONE (21:06)
[2017-10-27] MEDS ORDERED: morphine SULFATE 10 MG/ML, 1ML ONE (21:06)
[2017-10-27 21:12] LABS: BLOOD UREA NITROGEN 18 mg/dL (7-18)
[2017-10-27] MEDS ORDERED: HYDROmorphone 1 MG/ML, 1ML IV ONE (21:30)
[2017-10-27] MEDS ORDERED: DIPHENHYDRAMINE 50 MG/ML, 1ML ONE (21:34)
[2017-10-27] MEDS ORDERED: HYDROmorphone 2 MG/ML, 1ML ONE (21:38)
[2017-10-27] MEDS ORDERED: DIPHENHYDRAMINE 50 MG/ML, 1ML IVPush ONE (22:00)
[2017-10-27 22:55] VITALS: BP 144/76
== END 2017-10-27 23:34 | disposition home or self-care (01) ==
LOC: ED 21:11
DX: G89.29 Other chronic pain (principal); R10.9 Unspecified abdominal pain; E78.5 Hyperlipidemia, unspecified; G43.909 Migraine, unspecified, not intractable, without status migrainosus; E11.22 Type 2 diabetes mellitus with diabetic chronic kidney disease; I12.0 Hypertensive chronic kidney disease with stage 5 chronic kidney disease or end stage renal disease; N18.6 End stage renal disease; N17.9 Acute kidney failure, unspecified; Z99.2 Dependence on renal dialysis; Z90.49 Acquired absence of other specified parts of digestive tract
CPT/HCPCS: 36415; 76770; 80048; 81001; 82040; 83605; 85025; 96374; 96375; 99285; J1170; J1200; J2765

== ENCOUNTER 2017-11-01 12:40 | Day surgery (SDC) | payer MEDICAID, MEDICARE ==
[~2017-11-01] VITALS: Ht 165.1 cm; Wt 80.0 kg
[~2017-11-01 12:40] MED LIST changes: +BUPIVACAINE/PF 0.5% ONE; +DIPH25CA61 PO; +HEPARIN 1,000 UNITS/ML, 10ML ONE; +THROMBIN 5,000 UNIT VIAL TP ONE
[2017-11-01] MEDS ORDERED: SODIUM CHLORIDE 0.9% 1,000 ML IV SCH (13:11)
[2017-11-01 13:18] VITALS: BP 147/87
[2017-11-01 13:35] LABS: HCG UR LOT HCG706132
[2017-11-01 13:39] LABS: HCG UR OBC PASS
[2017-11-01] MEDS ORDERED: NEOSTIGMINE 1 MG/ML, 10ML ONE (14:31)
[2017-11-01] MEDS ORDERED: DEXAMETHASONE 4 MG/ML, 1ML ONE (14:31)
[2017-11-01] MEDS ORDERED: ONDANSETRON 2MG/ML, 2ML ONE (14:31)
[2017-11-01] MEDS ORDERED: PROPOFOL 10 MG/ML, 20ML ONE (14:31)
[2017-11-01] MEDS ORDERED: CEFAZOLIN 1,000 MG ONE (14:31)
[2017-11-01] MEDS ORDERED: MIDAZOLAM 1 MG/ML, 2ML ONE (14:32)
[2017-11-01] MEDS ORDERED: FENTANYL PF 100 MCG/2ML ONE ×3 (14:32→16:48)
[2017-11-01] MEDS ORDERED: HYDROmorphone 1 MG/ML, 1ML ONE (14:45)
[2017-11-01] MEDS ORDERED: HEPARIN 1,000 UNITS/ML, 10ML IV ONE (14:47)
[2017-11-01] MEDS ORDERED: hydrALAzine 20 MG/ML, 1ML IV PRN (15:00)
[2017-11-01] MEDS ORDERED: HYDROmorphone 1 MG/ML, 1ML IV PRN (15:00)
[2017-11-01] MEDS ORDERED: ONDANSETRON 2MG/ML, 2ML IVPush PRN (15:00)
[2017-11-01] MEDS ORDERED: MEPERIDINE/PF 25MG/0.5ML IVPush PRN (15:00)
[2017-11-01] MEDS ORDERED: LABETALOL 5MG/ML, 20ML IV PRN (15:00)
[2017-11-01] MEDS ORDERED: PROMETHAZINE 25 MG/ML, 1ML IV PRN (15:00)
[2017-11-01] MEDS ORDERED: THROMBIN 5,000 UNIT VIAL TP ONE (15:33)
[2017-11-01] MEDS ORDERED: OXYcodone 5 MG/5 ML ORAL.SOL UDC ONE ×2 (15:56→16:10)
[2017-11-01] MEDS: FENTANYL PF 100 MCG/2ML IV PRN ×4 (15:58→16:50)
[2017-11-01] MEDS: OXYcodone 5 MG/5 ML ORAL.SOL UDC PO PRN ×2 (15:58→16:15)
[2017-11-01] MEDS ORDERED: DIPHENHYDRAMINE 50 MG/ML, 1ML IVPush ONE (16:00)
[2017-11-01] MEDS ORDERED: ACETAMINOPHEN 650 MG/20.3 ML UDC ONE (16:00)
[2017-11-01] MEDS ORDERED: ACETAMINOPHEN 325 MG TABLET PO PRN (16:00)
[2017-11-01] MEDS ORDERED: DIPHENHYDRAMINE 50 MG/ML, 1ML ONE (16:01)
[2017-11-01] MEDS ORDERED: HEPARIN 1,000 UNITS/ML, 1ML IVPush ONE (16:30)
[2017-11-01] MEDS ORDERED: MEPERIDINE/PF 100 MG/ML IM ONE (18:00)
[2017-11-01] MEDS ORDERED: MEPERIDINE/PF 100 MG/ML ONE (18:01)
[2017-11-01] MEDS ORDERED: OXYC-302 PO (18:33)
== END 2017-11-01 20:31 | disposition home or self-care (01) ==
LOC: OUT 12:40 → 4NOR 17:30 → OUT 20:31
PROVIDERS: ATTEND Surgery Vascular Surgery
DX: E11.22 Type 2 diabetes mellitus with diabetic chronic kidney disease (principal); I12.0 Hypertensive chronic kidney disease with stage 5 chronic kidney disease or end stage renal disease; N18.6 End stage renal disease; Z88.5 Allergy status to narcotic agent; Z88.8 Allergy status to other drugs, medicaments and biological substances
CPT/HCPCS: 36415; 36830; 80047; 81025; C1768; J0690; J1100; J1170; J1200; J1644; J2175; J2250; J2405; J2704; J2710; J3010; J3490

== ENCOUNTER 2017-11-12 15:14 | Emergency (ER) | payer MEDICAID ==
[~2017-11-12] VITALS: Ht 165.1 cm; Wt 79.8 kg
[~2017-11-12 15:14] MED LIST changes: -BUPIVACAINE/PF 0.5% ONE; -HEPARIN 1,000 UNITS/ML, 10ML ONE; -THROMBIN 5,000 UNIT VIAL TP ONE
[2017-11-12 16:29] LABS: BASOPHILS # (AUTO) 0.09 x10^3/uL (0-0.1); BASOPHILS % (AUTO) 1 % (0-1); EOSINOPHILS # (AUTO) 0.33 x10^3/uL (0-0.4); EOSINOPHILS % (AUTO) 3 % (1-7); LYMPHOCYTES # (AUTO) 1.72 x10^3/uL (1-3.4); LYMPHOCYTES % (AUTO) 15 % (22-44); MD NO; MEAN CORPUSCULAR HEMOGLOBIN 31.2 pg (27.0-34.8); MEAN CORPUSCULAR HGB CONC 32.9 g/dL (32.4-35.8); MEAN CORPUSCULAR VOLUME 94.8 fL (80-100); MEAN PLATELET VOLUME 7.9 fL (7.4-10.4); MONOCYTES # (AUTO) 0.53 x10^3/uL (0.2-0.8); MONOCYTES % (AUTO) 5 % (2-9); NEUTROPHILS # (AUTO) 8.74 x10^3/uL (1.8-6.8); NEUTROPHILS % (AUTO) 77 % (42-75); PLATELET COUNT 324 x10^3/uL (130-400); RED CELL DISTRIBUTION WIDTH 16.1 % (9.6-15.2)
[2017-11-12 16:34] LABS: ALBUMIN 3.6 g/dL (3.4-5.0); ANION GAP 6 mmol/L (5-15); CALCIUM 9.2 mg/dL (8.5-10.1); CHLORIDE 100 mmol/L (98-107); CREATININE 4.26 mg/dL (0.55-1.02)
[2017-11-12] MEDS ORDERED: HYDROmorphone 2 MG/ML, 1ML ONE (18:14)
[2017-11-12] MEDS ORDERED: PROMETHAZINE 25 MG/ML, 1ML ONE (18:14)
[2017-11-12] MEDS ORDERED: HYDROmorphone 1 MG/ML, 1ML IV ONE (18:30)
[2017-11-12] MEDS ORDERED: PROMETHAZINE 25 MG/ML, 1ML IM ONE (18:30)
[2017-11-12 19:09] VITALS: BP 134/65
== END 2017-11-12 19:43 | disposition home or self-care (01) ==
LOC: ED 16:07
DX: M79.631 Pain in right forearm (principal); E11.9 Type 2 diabetes mellitus without complications; E78.5 Hyperlipidemia, unspecified; I10 Essential (primary) hypertension; Z79.4 Long term (current) use of insulin
CPT/HCPCS: 36415; 80048; 82040; 85025; 93971; 96372; 96374; 99285; J1170; J2550

== ENCOUNTER 2017-11-16 04:48 | Emergency (ER) | payer MEDICAID ==
[~2017-11-16] VITALS: Ht 165.1 cm; Wt 83.9 kg
[2017-11-16] MEDS ORDERED: CHOL100011 PO (05:12)
[2017-11-16] MEDS ORDERED: SODIUM CHLORIDE FLUSH 10ML SYR IVF ONE (06:00)
[2017-11-16] MEDS ORDERED: ACETAMINOPHEN 500 MG TABLET ONE ×2 (06:00→10:34)
[2017-11-16] MEDS ORDERED: METOCLOPRAMIDE 5 MG/ML, 2ML ONE (06:00)
[2017-11-16] MEDS ORDERED: ACETAMINOPHEN 500 MG TABLET PO ONE (06:00)
[2017-11-16] MEDS ORDERED: METOCLOPRAMIDE 5 MG/ML, 2ML IVPush ONE (06:00)
[2017-11-16] MEDS ORDERED: DIPHENHYDRAMINE 25 MG CAPSULE ONE ×2 (06:10→11:03)
[2017-11-16] MEDS ORDERED: DIPHENHYDRAMINE 25 MG CAPSULE PO ONE (06:30)
[2017-11-16 06:45] LABS: BASOPHILS # (AUTO) 0.07 x10^3/uL (0-0.1); BASOPHILS % (AUTO) 1 % (0-1); EOSINOPHILS % (AUTO) 5 % (1-7); LYMPHOCYTES # (AUTO) 2.86 x10^3/uL (1-3.4); LYMPHOCYTES % (AUTO) 18 % (22-44); MD NO; MEAN CORPUSCULAR HEMOGLOBIN 31.2 pg (27.0-34.8); MEAN CORPUSCULAR HGB CONC 32.6 g/dL (32.4-35.8); MEAN CORPUSCULAR VOLUME 95.6 fL (80-100); MEAN PLATELET VOLUME 7.5 fL (7.4-10.4); MONOCYTES # (AUTO) 0.86 x10^3/uL (0.2-0.8); MONOCYTES % (AUTO) 6 % (2-9); NEUTROPHILS # (AUTO) 11.01 x10^3/uL (1.8-6.8); NEUTROPHILS % (AUTO) 71 % (42-75); PLATELET COUNT 279 x10^3/uL (130-400); RED BLOOD COUNT 3.34 x10^6/uL (3.82-5.3); RED CELL DISTRIBUTION WIDTH 16.3 % (9.6-15.2)
[2017-11-16 06:53] LABS: INTERNATIONAL NORMALIZED RATIO 0.96 (0.93-1.1)
[2017-11-16 06:58] LABS: ALBUMIN 3.3 g/dL (3.4-5.0); ANION GAP 9 mmol/L (5-15); CALCIUM 8.8 mg/dL (8.5-10.1); CHLORIDE 105 mmol/L (98-107)
[2017-11-16 07:00] LABS: ALANINE AMINOTRANSFERASE 26 U/L (12-78); ALKALINE PHOSPHATASE 105 U/L (45-117); BILIRUBIN,TOTAL 0.2 mg/dL (0.2-1.0); CREATININE 4.85 mg/dL (0.55-1.02); TOTAL PROTEIN 7.3 g/dL (6.4-8.2)
[2017-11-16] MEDS ORDERED: OMNIPAQUE 350 MG/ML, 75ML BOTTLE ONE ×2 (07:04→10:34)
[2017-11-16] MEDS ORDERED: PROMETHAZINE 25 MG/ML, 1ML ONE (10:34)
[2017-11-16 10:53] VITALS: BP 145/83
[2017-11-16] MEDS ORDERED: PROMETHAZINE 25 MG/ML, 1ML IM ONE (11:00)
[2017-11-16] MEDS ORDERED: ACETAMINOPHEN 325 MG TABLET PO ONE (11:00)
== END 2017-11-16 11:15 | disposition home or self-care (01) ==
LOC: ED 05:05
DX: G89.29 Other chronic pain (principal); R51 Headache; R22.0 Localized swelling, mass and lump, head; E11.9 Type 2 diabetes mellitus without complications; I10 Essential (primary) hypertension
CPT/HCPCS: 36415; 70460; 71260; 80053; 85025; 85610; 85730; 93005; 96372; 96374; 99285; J2550; J2765; Q0163; Q9967

== ENCOUNTER 2017-12-14 16:21 | Emergency (ER) | payer MEDICARE, MEDICAID ==
[~2017-12-14] VITALS: Ht 165.1 cm; Wt 78.8 kg
[2017-12-14] MEDS ORDERED: OXYcodone/APAP 10/325MG TABLET ONE (18:25)
[2017-12-14] MEDS ORDERED: PROMETHAZINE 25 MG/ML, 1ML ONE (18:25)
[2017-12-14] MEDS ORDERED: PROMETHAZINE 25 MG/ML, 1ML IM ONE (18:30)
[2017-12-14] MEDS ORDERED: OXYcodone/APAP 10/325MG TABLET PO ONE (18:30)
[2017-12-14 19:28] VITALS: BP 124/65
== END 2017-12-14 19:29 | disposition home or self-care (01) ==
LOC: ED 18:57
DX: R51 Headache (principal); R61 Generalized hyperhidrosis; I12.0 Hypertensive chronic kidney disease with stage 5 chronic kidney disease or end stage renal disease; N18.6 End stage renal disease; E11.9 Type 2 diabetes mellitus without complications; E78.5 Hyperlipidemia, unspecified; Z90.49 Acquired absence of other specified parts of digestive tract; Z90.710 Acquired absence of both cervix and uterus
CPT/HCPCS: 71045; 96372; 99283; J2550

== ENCOUNTER 2018-01-26 11:43 | Inpatient (IN) | payer MEDICAID, MEDICARE ==
[~2018-01-26] VITALS: Ht 165.1 cm; Wt 82.0 kg
[2018-01-26 13:43] LABS: BASOPHILS # (AUTO) 0.02 x10^3/uL (0-0.1); BASOPHILS % (AUTO) 0 % (0-1); EOSINOPHILS # (AUTO) 0.06 x10^3/uL (0-0.4); EOSINOPHILS % (AUTO) 0 % (1-7); LYMPHOCYTES # (AUTO) 1.15 x10^3/uL (1-3.4); LYMPHOCYTES % (AUTO) 8 % (22-44); MD NO; MEAN CORPUSCULAR HEMOGLOBIN 32.8 pg (27.0-34.8); MEAN CORPUSCULAR HGB CONC 33.8 g/dL (32.4-35.8); MEAN PLATELET VOLUME 7.5 fL (7.4-10.4); MONOCYTES # (AUTO) 0.54 x10^3/uL (0.2-0.8); MONOCYTES % (AUTO) 4 % (2-9); NEUTROPHILS # (AUTO) 11.85 x10^3/uL (1.8-6.8); NEUTROPHILS % (AUTO) 87 % (42-75); PLATELET COUNT 387 x10^3/uL (130-400); RED BLOOD COUNT 3.53 x10^6/uL (3.82-5.3); RED CELL DISTRIBUTION WIDTH 14.3 % (9.6-15.2)
[2018-01-26 13:54] LABS: ALBUMIN 3.6 g/dL (3.4-5.0); ANION GAP 8 mmol/L (5-15); CALCIUM 8.7 mg/dL (8.5-10.1); CHLORIDE 98 mmol/L (98-107)
[2018-01-26 13:57] LABS: ALANINE AMINOTRANSFERASE 18 U/L (12-78); ALKALINE PHOSPHATASE 111 U/L (45-117); BILIRUBIN,TOTAL 0.7 mg/dL (0.2-1.0); CREATININE 3.52 mg/dL (0.55-1.02); TOTAL PROTEIN 8.5 g/dL (6.4-8.2)
[2018-01-26] MEDS ORDERED: OXYcodone/APAP 10/325MG TABLET ONE (15:47)
[2018-01-26] MEDS ORDERED: OXYcodone/APAP 10/325MG TABLET PO ONE (16:00)
[2018-01-26 16:14] LABS: CULTURE INDICATED? YES; MICROSCOPIC INDICATED
[2018-01-26] MEDS ORDERED: morphine SULFATE 10 MG/ML, 1ML IVPush ONE (16:30)
[2018-01-26] MEDS ORDERED: MORPHINE SULFATE 4 MG/ML, 1ML ONE (17:01)
[2018-01-26] MEDS ORDERED: DIPHENHYDRAMINE 50 MG/ML, 1ML ONE (17:21)
[2018-01-26] MEDS ORDERED: SODIUM CHLORIDE 0.9%, 500ML IVBOLUS ONE (18:00)
[2018-01-26] MEDS ORDERED: DIPHENHYDRAMINE 50 MG/ML, 1ML IVPush ONE (18:00)
[2018-01-26] MEDS ORDERED: ERTAPENEM 1 GM in SODIUM CHLORIDE 0.9% 50 ML IV ONE (18:30)
[2018-01-26] MEDS ORDERED: DEXTROSE 4 GM TAB.CHEW PO PRN (19:00)
[2018-01-26] MEDS ORDERED: GLUCAGON 1 MG IM PRN (19:00)
[2018-01-26] MEDS ORDERED: DEXTROSE 50%, 50ML SYRINGE IVPush PRN (19:00)
[2018-01-26] MEDS: SODIUM CHLORIDE FLUSH 10ML SYR IVF SCH (20:28)
[2018-01-26 20:30] VITALS: BP 131/78
[2018-01-26] MEDS: INSULIN LISPRO 100 UNITS/ML, PEN SQ-INSULIN SCH (21:00)
[2018-01-26] MEDS: ATORVASTATIN 20 MG TABLET PO SCH (21:08)
[2018-01-26] MEDS: HEPARIN 5,000 UNITS/ML, 1ML SQ SCH (21:08)
[2018-01-26] MEDS: DOCUSATE 100 MG CAPSULE PO SCH (21:08)
[2018-01-26] MEDS: SODIUM CHLORIDE 0.9% 1,000 ML IV SCH (21:08)
[2018-01-26] MEDS: morphine SULFATE 10 MG/ML, 1ML IVPush PRN (21:17)
[2018-01-26] MEDS: INSULIN GLARGINE 100 UNITS/ML, PEN SQ-INSULIN SCH (22:03)
[2018-01-27] MEDS: morphine SULFATE 10 MG/ML, 1ML IVPush PRN ×6 (00:21→19:03)
[2018-01-27] MEDS: DIPHENHYDRAMINE 50 MG/ML, 1ML IVPush PRN ×4 (00:21→19:37)
[2018-01-27 01:12] VITALS: BP 126/66
[2018-01-27] MEDS: HEPARIN 5,000 UNITS/ML, 1ML SQ SCH ×3 (05:02→20:19)
[2018-01-27] MEDS: INSULIN LISPRO 100 UNITS/ML, PEN SQ-INSULIN SCH ×4 (06:26→20:23)
[2018-01-27 06:27] LABS: ALANINE AMINOTRANSFERASE 16 U/L (12-78); ALBUMIN 3.5 g/dL (3.4-5.0); ANION GAP 8 mmol/L (5-15); CALCIUM 9.1 mg/dL (8.5-10.1); CHLORIDE 101 mmol/L (98-107); CREATININE 4.78 mg/dL (0.55-1.02)
[2018-01-27 06:29] LABS: ALKALINE PHOSPHATASE 103 U/L (45-117); BILIRUBIN,TOTAL 0.3 mg/dL (0.2-1.0); TOTAL PROTEIN 8.2 g/dL (6.4-8.2)
[2018-01-27 07:51] VITALS: BP 164/87
[2018-01-27 07:52] LABS: BASOPHILS # (AUTO) 0.14 x10^3/uL (0-0.1); BASOPHILS % (AUTO) 2 % (0-1); EOSINOPHILS % (AUTO) 3 % (1-7); LYMPHOCYTES # (AUTO) 2.56 x10^3/uL (1-3.4); LYMPHOCYTES % (AUTO) 28 % (22-44); MD NO; MEAN CORPUSCULAR HEMOGLOBIN 32.4 pg (27.0-34.8); MEAN CORPUSCULAR HGB CONC 33.1 g/dL (32.4-35.8); MEAN CORPUSCULAR VOLUME 97.9 fL (80-100); MEAN PLATELET VOLUME 7.3 fL (7.4-10.4); MONOCYTES % (AUTO) 9 % (2-9); NEUTROPHILS # (AUTO) 5.43 x10^3/uL (1.8-6.8); NEUTROPHILS % (AUTO) 59 % (42-75); PLATELET COUNT 359 x10^3/uL (130-400); RED BLOOD COUNT 3.46 x10^6/uL (3.82-5.3); RED CELL DISTRIBUTION WIDTH 14.5 % (9.6-15.2)
[2018-01-27] MEDS: SODIUM CHLORIDE FLUSH 10ML SYR IVF SCH ×2 (09:00→19:40)
[2018-01-27] MEDS: AMLODIPINE 5 MG TABLET PO SCH (09:47)
[2018-01-27] MEDS: CITALOPRAM 10 MG TABLET PO SCH (09:47)
[2018-01-27] MEDS: DOCUSATE 100 MG CAPSULE PO SCH ×2 (09:47→20:19)
[2018-01-27] MEDS: SODIUM CHLORIDE 0.9% 1,000 ML IV SCH (09:48)
[2018-01-27 09:51] VITALS: BP 131/71
[2018-01-27] MEDS: PROMETHAZINE 25MG TABLET PO PRN (13:05)
[2018-01-27 13:09] VITALS: BP 160/87
[2018-01-27] MEDS: HYDROcodone/APAP 5/325 TABLET PO PRN ×2 (14:47→23:10)
[2018-01-27] MEDS: ERTAPENEM 0.5 GM in SODIUM CHLORIDE 0.9% 50 ML IV SCH (18:21)
[2018-01-27] MEDS: ATORVASTATIN 20 MG TABLET PO SCH (20:19)
[2018-01-27] MEDS: INSULIN GLARGINE 100 UNITS/ML, PEN SQ-INSULIN SCH (20:29)
[2018-01-27 21:02] VITALS: BP 137/74
[2018-01-28] MEDS: morphine SULFATE 10 MG/ML, 1ML IVPush PRN ×6 (00:30→23:36)
[2018-01-28 01:27] VITALS: BP 145/73
[2018-01-28] MEDS: DIPHENHYDRAMINE 50 MG/ML, 1ML IVPush PRN ×4 (01:34→20:38)
[2018-01-28] MEDS: HEPARIN 5,000 UNITS/ML, 1ML SQ SCH ×3 (05:23→20:39)
[2018-01-28 06:04] LABS: CHLORIDE 106 mmol/L (98-107)
[2018-01-28 06:09] LABS: ALANINE AMINOTRANSFERASE 14 U/L (12-78); ALKALINE PHOSPHATASE 94 U/L (45-117); ANION GAP 8 mmol/L (5-15); BILIRUBIN,TOTAL 0.4 mg/dL (0.2-1.0); CALCIUM 8.9 mg/dL (8.5-10.1); CREATININE 5.55 mg/dL (0.55-1.02); TOTAL PROTEIN 7.5 g/dL (6.4-8.2)
[2018-01-28] MEDS: INSULIN LISPRO 100 UNITS/ML, PEN SQ-INSULIN SCH ×4 (06:32→20:48)
[2018-01-28 07:51] VITALS: BP 137/80
[2018-01-28] MEDS ORDERED: hydrALAzine 20 MG/ML, 1ML IV PRN (08:00)
[2018-01-28] MEDS ORDERED: LABETALOL 5MG/ML, 20ML IVPush PRN (08:00)
[2018-01-28] MEDS: SODIUM CHLORIDE FLUSH 10ML SYR IVF SCH ×2 (08:26→19:56)
[2018-01-28] MEDS: DOCUSATE 100 MG CAPSULE PO SCH ×2 (08:26→20:38)
[2018-01-28] MEDS: CITALOPRAM 10 MG TABLET PO SCH (08:26)
[2018-01-28] MEDS: AMLODIPINE 5 MG TABLET PO SCH (08:26)
[2018-01-28] MEDS: HYDROcodone/APAP 5/325 TABLET PO PRN (12:09)
[2018-01-28] MEDS: PROMETHAZINE 25MG TABLET PO PRN (12:10)
[2018-01-28 12:49] VITALS: BP 164/85
[2018-01-28] MEDS: OXYcodone/APAP 10/325MG TABLET PO PRN (17:56)
[2018-01-28] MEDS: ERTAPENEM 0.5 GM in SODIUM CHLORIDE 0.9% 50 ML IV SCH (18:02)
[2018-01-28 19:19] VITALS: BP 100/63
[2018-01-28] MEDS ORDERED: CATHFLO-ALTEPLASE 2 MG/2 ML CATHFLUSH ONE (19:30)
[2018-01-28] MEDS: ATORVASTATIN 20 MG TABLET PO SCH (20:38)
[2018-01-28] MEDS: INSULIN GLARGINE 100 UNITS/ML, PEN SQ-INSULIN SCH (20:40)
[2018-01-29 00:50] VITALS: BP 102/63
[2018-01-29] MEDS: DIPHENHYDRAMINE 50 MG/ML, 1ML IVPush PRN ×4 (02:33→21:32)
[2018-01-29] MEDS: HEPARIN 5,000 UNITS/ML, 1ML SQ SCH ×3 (04:41→20:48)
[2018-01-29] MEDS: OXYcodone/APAP 10/325MG TABLET PO PRN ×3 (04:49→16:56)
[2018-01-29 05:23] LABS: BASOPHILS # (AUTO) 0.17 x10^3/uL (0-0.1); BASOPHILS % (AUTO) 2 % (0-1); EOSINOPHILS # (AUTO) 0.35 x10^3/uL (0-0.4); EOSINOPHILS % (AUTO) 4 % (1-7); LYMPHOCYTES # (AUTO) 2.31 x10^3/uL (1-3.4); LYMPHOCYTES % (AUTO) 23 % (22-44); MD NO; MEAN CORPUSCULAR HEMOGLOBIN 32.6 pg (27.0-34.8); MEAN CORPUSCULAR HGB CONC 33.2 g/dL (32.4-35.8); MEAN CORPUSCULAR VOLUME 97.9 fL (80-100); MEAN PLATELET VOLUME 7.4 fL (7.4-10.4); MONOCYTES # (AUTO) 0.54 x10^3/uL (0.2-0.8); MONOCYTES % (AUTO) 6 % (2-9); NEUTROPHILS # (AUTO) 6.55 x10^3/uL (1.8-6.8); NEUTROPHILS % (AUTO) 66 % (42-75); PLATELET COUNT 348 x10^3/uL (130-400); RED BLOOD COUNT 3.24 x10^6/uL (3.82-5.3); RED CELL DISTRIBUTION WIDTH 13.8 % (9.6-15.2)
[2018-01-29 05:28] LABS: ALANINE AMINOTRANSFERASE 14 U/L (12-78); ALBUMIN 3.2 g/dL (3.4-5.0); ANION GAP 7 mmol/L (5-15); CALCIUM 8.3 mg/dL (8.5-10.1); CHLORIDE 98 mmol/L (98-107)
[2018-01-29 05:30] LABS: ALKALINE PHOSPHATASE 98 U/L (45-117); BILIRUBIN,TOTAL 0.5 mg/dL (0.2-1.0); TOTAL PROTEIN 7.7 g/dL (6.4-8.2)
[2018-01-29 05:38] VITALS: BP 133/70
[2018-01-29] MEDS: morphine SULFATE 10 MG/ML, 1ML IVPush PRN ×3 (05:57→21:32)
[2018-01-29 07:01] VITALS: BP 110/63
[2018-01-29] MEDS: AMLODIPINE 5 MG TABLET PO SCH (08:17)
[2018-01-29] MEDS: INSULIN LISPRO 100 UNITS/ML, PEN SQ-INSULIN SCH ×4 (08:17→20:48)
[2018-01-29] MEDS: DOCUSATE 100 MG CAPSULE PO SCH ×2 (08:17→20:47)
[2018-01-29] MEDS: CITALOPRAM 10 MG TABLET PO SCH (08:17)
[2018-01-29] MEDS: SODIUM CHLORIDE FLUSH 10ML SYR IVF SCH ×2 (08:18→20:50)
[2018-01-29 12:45] VITALS: BP 152/84
[2018-01-29] MEDS: [UNRECOGNIZED DRUG - REMARK] MC SCH ×2 (13:59→21:59)
[2018-01-29] MEDS ORDERED: LEVOFLOXACIN 750 MG TABLET PO SCH (14:00)
[2018-01-29] MEDS ORDERED: LEVO750T26 PO (14:19)
[2018-01-29] MEDS ORDERED: OXYC1TAB9 PO (14:19)
[2018-01-29] MEDS ORDERED: FOSFOMYCIN 3 GM PACKET PO ONE (16:00)
[2018-01-29] MEDS: ERTAPENEM 0.5 GM in SODIUM CHLORIDE 0.9% 50 ML IV SCH (18:03)
[2018-01-29 18:39] VITALS: BP 120/78
[2018-01-29] MEDS: ATORVASTATIN 20 MG TABLET PO SCH (20:47)
[2018-01-29] MEDS: INSULIN GLARGINE 100 UNITS/ML, PEN SQ-INSULIN SCH (20:47)
[2018-01-30 01:15] VITALS: BP 129/77
[2018-01-30] MEDS: OXYcodone/APAP 10/325MG TABLET PO PRN ×2 (02:41→10:55)
[2018-01-30] MEDS: HEPARIN 5,000 UNITS/ML, 1ML SQ SCH ×2 (04:43→13:00)
[2018-01-30] MEDS: morphine SULFATE 10 MG/ML, 1ML IVPush PRN (04:43)
[2018-01-30] MEDS: [UNRECOGNIZED DRUG - REMARK] MC SCH ×2 (05:59→13:59)
[2018-01-30] MEDS: DIPHENHYDRAMINE 50 MG/ML, 1ML IVPush PRN (06:16)
[2018-01-30] MEDS: INSULIN LISPRO 100 UNITS/ML, PEN SQ-INSULIN SCH ×2 (07:00→11:00)
[2018-01-30 07:38] VITALS: BP 148/80
[2018-01-30] MEDS: SODIUM CHLORIDE FLUSH 10ML SYR IVF SCH (09:00)
[2018-01-30] MEDS: CITALOPRAM 10 MG TABLET PO SCH (10:56)
[2018-01-30] MEDS: AMLODIPINE 5 MG TABLET PO SCH (10:56)
[2018-01-30] MEDS: DOCUSATE 100 MG CAPSULE PO SCH (10:56)
[2018-01-30 13:14] VITALS: BP 122/68
[2018-01-30] MEDS ORDERED: FOSFOMYCIN 3 GM PACKET PO ONE (14:00)
[2018-01-30] MEDS ORDERED: FOSF3PAC PO (15:32)
== END 2018-01-30 16:49 | disposition home or self-care (01) | DRG 871 ==
LOC: ED 17:40 → EDIP 17:41 → ED 17:48 → 4NOR 19:49 → 4WST 01-29 05:29
PROVIDERS: ADMIT Family Medicine; ATTEND Family Medicine
PROC: 5A1D70Z Performance of Urinary Filtration, Intermittent, Less than 6 Hours Per Day (ICD-10-PCS; principal; 2018-01-26)
PROC: 5A1D70Z Performance of Urinary Filtration, Intermittent, Less than 6 Hours Per Day (ICD-10-PCS; 2018-01-28)
DX: A41.9 Sepsis, unspecified organism (principal); N18.6 End stage renal disease; E10.22 Type 1 diabetes mellitus with diabetic chronic kidney disease; I12.0 Hypertensive chronic kidney disease with stage 5 chronic kidney disease or end stage renal disease; N10 Acute pyelonephritis; E87.1 Hypo-osmolality and hyponatremia; D63.1 Anemia in chronic kidney disease; E78.5 Hyperlipidemia, unspecified; F32.9 Major depressive disorder, single episode, unspecified; M54.5 Low back pain; Z16.12 Extended spectrum beta lactamase (ESBL) resistance; Z79.4 Long term (current) use of insulin; Z83.3 Family history of diabetes mellitus; Z87.440 Personal history of urinary (tract) infections; Z87.442 Personal history of urinary calculi; Z99.2 Dependence on renal dialysis; Z90.49 Acquired absence of other specified parts of digestive tract; Z88.6 Allergy status to analgesic agent; Z88.1 Allergy status to other antibiotic agents; Z91.012 Allergy to eggs; Z88.5 Allergy status to narcotic agent; Z88.8 Allergy status to other drugs, medicaments and biological substances; Z91.018 Allergy to other foods
CPT/HCPCS: 36415; 74176; 80053; 81001; 81025; 82306; 82962; 83605; 83690; 83735; 83970; 84100; 85025; 87040; 87077; 87086; 87186; 96374; 96375; J1335; J1644; Q0169; J1200; J1815; J2270; J7030

== ENCOUNTER 2018-02-27 22:06 | Emergency (ER) | payer MEDICARE ==
[~2018-02-27] VITALS: Ht 165.1 cm; Wt 85.0 kg
[~2018-02-27 22:06] MED LIST changes: +FOSF3PAC PO; +LEVO750T26 PO; +OXYC1TAB9 PO
[2018-02-27] MEDS ORDERED: PROMETHAZINE 25 MG/ML, 1ML ONE (22:36)
[2018-02-27] MEDS ORDERED: OXYcodone/APAP 5/325MG TABLET ONE (22:37)
[2018-02-27 22:44] LABS: HCG UR SG 1.015 (1.003-1.030); MICROSCOPIC AUTO
[2018-02-27 22:45] LABS: CULTURE INDICATED? YES
[2018-02-27] MEDS ORDERED: PROMETHAZINE 25 MG/ML, 1ML IM ONE (23:00)
[2018-02-27] MEDS ORDERED: OXYcodone/APAP 5/325MG TABLET PO ONE (23:00)
[2018-02-27 23:53] LABS: BASOPHILS # (AUTO) 0.06 x10^3/uL (0-0.1); BASOPHILS % (AUTO) 1 % (0-1); EOSINOPHILS % (AUTO) 5 % (1-7); LYMPHOCYTES # (AUTO) 1.95 x10^3/uL (1-3.4); LYMPHOCYTES % (AUTO) 27 % (22-44); MD NO; MEAN CORPUSCULAR HEMOGLOBIN 32.9 pg (27.0-34.8); MEAN CORPUSCULAR HGB CONC 33.3 g/dL (32.4-35.8); MEAN CORPUSCULAR VOLUME 98.9 fL (80-100); MEAN PLATELET VOLUME 8.4 fL (7.4-10.4); MONOCYTES # (AUTO) 0.45 x10^3/uL (0.2-0.8); MONOCYTES % (AUTO) 6 % (2-9); NEUTROPHILS # (AUTO) 4.43 x10^3/uL (1.8-6.8); NEUTROPHILS % (AUTO) 61 % (42-75); PLATELET COUNT 257 x10^3/uL (130-400); RED CELL DISTRIBUTION WIDTH 14.4 % (9.6-15.2)
[2018-02-28 00:04] LABS: ALBUMIN 3.1 g/dL (3.4-5.0); ANION GAP 9 mmol/L (5-15); CALCIUM 7.7 mg/dL (8.5-10.1); CHLORIDE 107 mmol/L (98-107)
[2018-02-28] MEDS ORDERED: DIPHENHYDRAMINE 25 MG CAPSULE ONE (00:06)
[2018-02-28 00:07] LABS: ALANINE AMINOTRANSFERASE 15 U/L (12-78); ALKALINE PHOSPHATASE 156 U/L (45-117); BILIRUBIN,TOTAL 0.4 mg/dL (0.2-1.0); CREATININE 6.12 mg/dL (0.55-1.02); TOTAL PROTEIN 7.2 g/dL (6.4-8.2)
[2018-02-28 00:09] VITALS: BP 154/82
[2018-02-28] MEDS ORDERED: DIPHENHYDRAMINE 25 MG CAPSULE PO ONE (00:30)
[2018-02-28] MEDS ORDERED: OXYcodone/APAP 5/325MG TABLET ONE (01:24)
[2018-02-28] MEDS ORDERED: OXYcodone/APAP 5/325MG TABLET PO ONE (01:30)
== END 2018-02-28 01:35 | disposition home or self-care (01) ==
LOC: ED 23:01
DX: R10.9 Unspecified abdominal pain (principal); R11.2 Nausea with vomiting, unspecified; G89.29 Other chronic pain; I12.9 Hypertensive chronic kidney disease with stage 1 through stage 4 chronic kidney disease, or unspecified chronic kidney disease; E11.22 Type 2 diabetes mellitus with diabetic chronic kidney disease; N18.3 Chronic kidney disease, stage 3 (moderate); E78.5 Hyperlipidemia, unspecified; G43.909 Migraine, unspecified, not intractable, without status migrainosus; Z99.2 Dependence on renal dialysis
CPT/HCPCS: 36415; 80053; 81001; 81025; 83690; 85025; 87086; 96372; 99284; J2550; Q0163

== ENCOUNTER 2018-04-03 18:56 | Inpatient (IN) | payer MEDICARE ==
[~2018-04-03] VITALS: Ht 165.1 cm; Wt 86.2 kg
[2018-04-03] MEDS ORDERED: PROMETHAZINE 25 MG/ML, 1ML ONE (19:39)
[2018-04-03 19:57] LABS: BASOPHILS # (AUTO) 0.09 x10^3/uL (0-0.1); BASOPHILS % (AUTO) 1 % (0-1); EOSINOPHILS # (AUTO) 0.54 x10^3/uL (0-0.4); EOSINOPHILS % (AUTO) 6 % (1-7); LYMPHOCYTES # (AUTO) 1.92 x10^3/uL (1-3.4); LYMPHOCYTES % (AUTO) 22 % (22-44); MD NO; MEAN CORPUSCULAR HEMOGLOBIN 32.8 pg (27.0-34.8); MEAN CORPUSCULAR HGB CONC 33.6 g/dL (32.4-35.8); MEAN CORPUSCULAR VOLUME 97.6 fL (80-100); MEAN PLATELET VOLUME 8.2 fL (7.4-10.4); MONOCYTES # (AUTO) 0.43 x10^3/uL (0.2-0.8); MONOCYTES % (AUTO) 5 % (2-9); NEUTROPHILS # (AUTO) 5.87 x10^3/uL (1.8-6.8); NEUTROPHILS % (AUTO) 66 % (42-75); PLATELET COUNT 335 x10^3/uL (130-400); RED BLOOD COUNT 3.33 x10^6/uL (3.82-5.3); RED CELL DISTRIBUTION WIDTH 13.9 % (9.6-15.2)
[2018-04-03] MEDS ORDERED: PROMETHAZINE 25 MG/ML, 1ML IM ONE (20:00)
[2018-04-03 20:05] LABS: MICROSCOPIC AUTO
[2018-04-03 20:05] LABS: ALANINE AMINOTRANSFERASE 13 U/L (12-78); ALBUMIN 3.4 g/dL (3.4-5.0); ANION GAP 10 mmol/L (5-15); CALCIUM 7.9 mg/dL (8.5-10.1); CHLORIDE 106 mmol/L (98-107); CREATININE 6.76 mg/dL (0.55-1.02)
[2018-04-03 20:07] LABS: ALKALINE PHOSPHATASE 155 U/L (45-117); BILIRUBIN,TOTAL 0.3 mg/dL (0.2-1.0); TOTAL PROTEIN 7.6 g/dL (6.4-8.2)
[2018-04-03 20:12] LABS: CULTURE INDICATED? YES
[2018-04-03] MEDS ORDERED: LABETALOL 5MG/ML, 20ML IVPush PRN (21:30)
[2018-04-03] MEDS ORDERED: HYDROmorphone 2 MG/ML, 1ML IVPush PRN (21:30)
[2018-04-03] MEDS ORDERED: ONDANSETRON ODT 4 MG PO PRN (21:30)
[2018-04-03] MEDS ORDERED: INSULIN GLARGINE 100 UNITS/ML, PEN SQ-INSULIN SCH (21:30)
[2018-04-03] MEDS ORDERED: ERTAPENEM 0.5 GM in SODIUM CHLORIDE 0.9% 50 ML IV ONE (22:00)
[2018-04-03] MEDS ORDERED: DEXTROSE 50%, 50ML SYRINGE IVPush PRN (22:30)
[2018-04-03] MEDS ORDERED: DEXTROSE 4 GM TAB.CHEW PO PRN (22:30)
[2018-04-03] MEDS ORDERED: GLUCAGON 1 MG IM PRN (22:30)
[2018-04-03] MEDS ORDERED: HEPARIN 5,000 UNITS/ML, 1ML ONE (22:53)
[2018-04-03] MEDS ORDERED: HYDROmorphone 1 MG/ML, 1ML ONE (22:54)
[2018-04-03] MEDS ORDERED: DIPHENHYDRAMINE 25 MG CAPSULE PO PRN (23:00)
[2018-04-03] MEDS ORDERED: DIPHENHYDRAMINE 25 MG CAPSULE ONE (23:01)
[2018-04-03] MEDS: HYDROmorphone 2 MG/ML, 1ML IVPush PRN (23:02)
[2018-04-03] MEDS: HEPARIN 5,000 UNITS/ML, 1ML SQ SCH (23:06)
[2018-04-03] MEDS: INSULIN GLARGINE 100 UNITS/ML, PEN SQ-INSULIN SCH (23:07)
[2018-04-03] MEDS: INSULIN LISPRO 100 UNITS/ML, PEN SQ-INSULIN SCH (23:10)
[2018-04-03 23:44] VITALS: BP 165/93
[2018-04-04] MEDS: HYDROmorphone 2 MG/ML, 1ML IVPush PRN ×5 (02:11→20:12)
[2018-04-04 02:15] VITALS: BP 159/88
[2018-04-04 05:31] LABS: CALCIUM 8.4 mg/dL (8.5-10.1); CHLORIDE 108 mmol/L (98-107)
[2018-04-04 05:35] LABS: ANION GAP 11 mmol/L (5-15); CREATININE 6.64 mg/dL (0.55-1.02)
[2018-04-04 05:52] LABS: BASOPHILS # (AUTO) 0.13 x10^3/uL (0-0.1); BASOPHILS % (AUTO) 1 % (0-1); EOSINOPHILS # (AUTO) 0.56 x10^3/uL (0-0.4); EOSINOPHILS % (AUTO) 6 % (1-7); LYMPHOCYTES # (AUTO) 2.16 x10^3/uL (1-3.4); LYMPHOCYTES % (AUTO) 21 % (22-44); MD NO; MEAN CORPUSCULAR HEMOGLOBIN 33.1 pg (27.0-34.8); MEAN CORPUSCULAR HGB CONC 33.9 g/dL (32.4-35.8); MEAN CORPUSCULAR VOLUME 97.6 fL (80-100); MEAN PLATELET VOLUME 8.2 fL (7.4-10.4); MONOCYTES # (AUTO) 0.59 x10^3/uL (0.2-0.8); MONOCYTES % (AUTO) 6 % (2-9); NEUTROPHILS # (AUTO) 6.74 x10^3/uL (1.8-6.8); NEUTROPHILS % (AUTO) 66 % (42-75); PLATELET COUNT 330 x10^3/uL (130-400); RED BLOOD COUNT 3.17 x10^6/uL (3.82-5.3); RED CELL DISTRIBUTION WIDTH 13.6 % (9.6-15.2)
[2018-04-04] MEDS: DIPHENHYDRAMINE 25 MG CAPSULE PO SCH ×2 (06:00→11:33)
[2018-04-04] MEDS: HEPARIN 5,000 UNITS/ML, 1ML SQ SCH ×2 (06:31→16:57)
[2018-04-04] MEDS: INSULIN LISPRO 100 UNITS/ML, PEN SQ-INSULIN SCH ×4 (07:00→20:18)
[2018-04-04 07:58] VITALS: BP 149/84
[2018-04-04] MEDS: SODIUM CHLORIDE FLUSH 10ML SYR IVF SCH ×2 (09:00→20:21)
[2018-04-04] MEDS: CITALOPRAM 10 MG TABLET PO SCH (09:57)
[2018-04-04] MEDS ORDERED: DIPHENHYDRAMINE 50 MG/ML, 1ML IVPush ONE (13:00)
[2018-04-04 13:58] VITALS: BP 154/81
[2018-04-04 18:43] VITALS: BP 152/82
[2018-04-04] MEDS: ATORVASTATIN 20 MG TABLET PO SCH (20:12)
[2018-04-04] MEDS: INSULIN GLARGINE 100 UNITS/ML, PEN SQ-INSULIN SCH (20:30)
[2018-04-04] MEDS: ERTAPENEM 0.5 GM in SODIUM CHLORIDE 0.9% 50 ML IV SCH (23:10)
[2018-04-05] MEDS: HEPARIN 5,000 UNITS/ML, 1ML SQ SCH ×3 (00:17→17:00)
[2018-04-05] MEDS: HYDROmorphone 2 MG/ML, 1ML IVPush PRN ×2 (00:24→04:21)
[2018-04-05 01:05] VITALS: BP 163/96
[2018-04-05 06:16] LABS: BASOPHILS % (AUTO) 2 % (0-1); EOSINOPHILS % (AUTO) 6 % (1-7); LYMPHOCYTES # (AUTO) 1.76 x10^3/uL (1-3.4); LYMPHOCYTES % (AUTO) 22 % (22-44); MEAN CORPUSCULAR HEMOGLOBIN 32.8 pg (27.0-34.8); MEAN CORPUSCULAR HGB CONC 33.4 g/dL (32.4-35.8); MEAN CORPUSCULAR VOLUME 98.1 fL (80-100); MEAN PLATELET VOLUME 8.2 fL (7.4-10.4); MONOCYTES # (AUTO) 0.36 x10^3/uL (0.2-0.8); MONOCYTES % (AUTO) 5 % (2-9); NEUTROPHILS # (AUTO) 5.28 x10^3/uL (1.8-6.8); NEUTROPHILS % (AUTO) 66 % (42-75); PLATELET COUNT 355 x10^3/uL (130-400); RED BLOOD COUNT 3.33 x10^6/uL (3.82-5.3); RED CELL DISTRIBUTION WIDTH 13.7 % (9.6-15.2)
[2018-04-05 06:17] LABS: BASOPHILS # (AUTO) 0.15 x10^3/uL (0-0.1); MD NO
[2018-04-05 06:26] LABS: ALBUMIN 3.2 g/dL (3.4-5.0); ANION GAP 8 mmol/L (5-15); CALCIUM 8.3 mg/dL (8.5-10.1); CHLORIDE 109 mmol/L (98-107)
[2018-04-05 06:30] LABS: ALANINE AMINOTRANSFERASE 13 U/L (12-78); ALKALINE PHOSPHATASE 125 U/L (45-117); BILIRUBIN,TOTAL 0.4 mg/dL (0.2-1.0); CREATININE 6.68 mg/dL (0.55-1.02); TOTAL PROTEIN 7.2 g/dL (6.4-8.2)
[2018-04-05 06:55] VITALS: BP 150/78
[2018-04-05] MEDS: INSULIN LISPRO 100 UNITS/ML, PEN SQ-INSULIN SCH ×4 (07:00→21:00)
[2018-04-05] MEDS: SODIUM CHLORIDE FLUSH 10ML SYR IVF SCH ×3 (08:08→22:24)
[2018-04-05] MEDS: CITALOPRAM 10 MG TABLET PO SCH (08:08)
[2018-04-05] MEDS: CHOLECALCIFEROL 1,000 UNIT TABLET PO SCH (08:10)
[2018-04-05] MEDS: AMLODIPINE 5 MG TABLET PO SCH (08:10)
[2018-04-05] MEDS: OXYcodone/APAP 10/325MG TABLET PO PRN ×3 (08:10→22:16)
[2018-04-05] MEDS: SEVELAMER 2.4 GM POWD.PACK PO SCH ×2 (12:39→17:46)
[2018-04-05] MEDS: DIPHENHYDRAMINE 50 MG/ML, 1ML IVPush PRN (12:39)
[2018-04-05 12:57] VITALS: BP 134/84
[2018-04-05 20:04] VITALS: BP 98/62
[2018-04-05] MEDS: INSULIN GLARGINE 100 UNITS/ML, PEN SQ-INSULIN SCH (21:00)
[2018-04-05] MEDS: ATORVASTATIN 20 MG TABLET PO SCH (22:16)
[2018-04-06] MEDS: ERTAPENEM 0.5 GM in SODIUM CHLORIDE 0.9% 50 ML IV SCH (00:10)
[2018-04-06] MEDS: HEPARIN 5,000 UNITS/ML, 1ML SQ SCH ×3 (01:00→16:20)
[2018-04-06 01:56] VITALS: BP 124/77
[2018-04-06] MEDS: OXYcodone/APAP 10/325MG TABLET PO PRN ×3 (05:16→16:04)
[2018-04-06 05:43] LABS: BASOPHILS # (AUTO) 0.15 x10^3/uL (0-0.1); BASOPHILS % (AUTO) 2 % (0-1); EOSINOPHILS # (AUTO) 0.42 x10^3/uL (0-0.4); EOSINOPHILS % (AUTO) 6 % (1-7); LYMPHOCYTES # (AUTO) 1.82 x10^3/uL (1-3.4); LYMPHOCYTES % (AUTO) 24 % (22-44); MD NO; MEAN CORPUSCULAR HEMOGLOBIN 32.1 pg (27.0-34.8); MEAN CORPUSCULAR HGB CONC 33.3 g/dL (32.4-35.8); MEAN CORPUSCULAR VOLUME 96.4 fL (80-100); MEAN PLATELET VOLUME 8.2 fL (7.4-10.4); MONOCYTES # (AUTO) 0.51 x10^3/uL (0.2-0.8); MONOCYTES % (AUTO) 7 % (2-9); NEUTROPHILS # (AUTO) 4.71 x10^3/uL (1.8-6.8); NEUTROPHILS % (AUTO) 62 % (42-75); PLATELET COUNT 310 x10^3/uL (130-400); RED BLOOD COUNT 3.34 x10^6/uL (3.82-5.3); RED CELL DISTRIBUTION WIDTH 13.5 % (9.6-15.2)
[2018-04-06 05:48] LABS: CHLORIDE 109 mmol/L (98-107)
[2018-04-06 05:55] LABS: ANION GAP 8 mmol/L (5-15); CALCIUM 8.4 mg/dL (8.5-10.1); CREATININE 5.91 mg/dL (0.55-1.02)
[2018-04-06 07:00] VITALS: BP 118/73
[2018-04-06] MEDS: INSULIN LISPRO 100 UNITS/ML, PEN SQ-INSULIN SCH ×4 (07:00→21:00)
[2018-04-06] MEDS: SODIUM CHLORIDE FLUSH 10ML SYR IVF SCH ×2 (07:45→07:48)
[2018-04-06] MEDS: CITALOPRAM 10 MG TABLET PO SCH (09:21)
[2018-04-06] MEDS: SEVELAMER 2.4 GM POWD.PACK PO SCH ×3 (09:21→17:59)
[2018-04-06] MEDS: AMLODIPINE 5 MG TABLET PO SCH (09:22)
[2018-04-06] MEDS: CHOLECALCIFEROL 1,000 UNIT TABLET PO SCH (09:22)
[2018-04-06] MEDS: DARBEPOETIN 100 MCG/ML SQ SCH (10:00)
[2018-04-06 12:25] VITALS: BP 133/77
[2018-04-06 16:15] VITALS: BP 92/57
[2018-04-06 20:15] VITALS: BP 102/66
[2018-04-06] MEDS: ATORVASTATIN 20 MG TABLET PO SCH (20:33)
[2018-04-06] MEDS: INSULIN GLARGINE 100 UNITS/ML, PEN SQ-INSULIN SCH (20:33)
[2018-04-06] MEDS: DIPHENHYDRAMINE 50 MG/ML, 1ML IVPush PRN (20:39)
[2018-04-07] MEDS: HEPARIN 5,000 UNITS/ML, 1ML SQ SCH ×3 (00:22→15:53)
[2018-04-07] MEDS: ERTAPENEM 0.5 GM in SODIUM CHLORIDE 0.9% 50 ML IV SCH (00:22)
[2018-04-07 00:42] VITALS: BP 112/71
[2018-04-07] MEDS: OXYcodone/APAP 10/325MG TABLET PO PRN ×4 (02:22→22:12)
[2018-04-07] MEDS: DIPHENHYDRAMINE 50 MG/ML, 1ML IVPush PRN ×3 (04:01→17:10)
[2018-04-07 06:03] LABS: ANION GAP 7 mmol/L (5-15); CALCIUM 8.3 mg/dL (8.5-10.1); CHLORIDE 102 mmol/L (98-107); CREATININE 5.18 mg/dL (0.55-1.02)
[2018-04-07 07:34] VITALS: BP 103/69
[2018-04-07] MEDS: INSULIN LISPRO 100 UNITS/ML, PEN SQ-INSULIN SCH ×4 (08:29→20:49)
[2018-04-07] MEDS: SEVELAMER 2.4 GM POWD.PACK PO SCH ×3 (08:29→17:10)
[2018-04-07] MEDS: CITALOPRAM 10 MG TABLET PO SCH (08:29)
[2018-04-07] MEDS: AMLODIPINE 5 MG TABLET PO SCH (08:30)
[2018-04-07] MEDS: CHOLECALCIFEROL 1,000 UNIT TABLET PO SCH (08:30)
[2018-04-07 15:39] VITALS: BP 98/63
[2018-04-07 18:32] VITALS: BP 100/61
[2018-04-07] MEDS: ATORVASTATIN 20 MG TABLET PO SCH (20:49)
[2018-04-07] MEDS: INSULIN GLARGINE 100 UNITS/ML, PEN SQ-INSULIN SCH (20:49)
[2018-04-07] MEDS: PHENAZOPYRIDINE 100 MG TABLET PO PRN (22:12)
[2018-04-08] MEDS: ERTAPENEM 0.5 GM in SODIUM CHLORIDE 0.9% 50 ML IV SCH (00:11)
[2018-04-08] MEDS: HEPARIN 5,000 UNITS/ML, 1ML SQ SCH ×3 (00:11→16:44)
[2018-04-08] MEDS: DIPHENHYDRAMINE 50 MG/ML, 1ML IVPush PRN ×3 (00:11→16:44)
[2018-04-08 03:27] VITALS: BP 93/62
[2018-04-08] MEDS: OXYcodone/APAP 10/325MG TABLET PO PRN ×2 (05:50→15:52)
[2018-04-08 06:04] LABS: CHLORIDE 101 mmol/L (98-107)
[2018-04-08 06:14] LABS: ALANINE AMINOTRANSFERASE 13 U/L (12-78); ALKALINE PHOSPHATASE 121 U/L (45-117); ANION GAP 9 mmol/L (5-15); BILIRUBIN,TOTAL 0.5 mg/dL (0.2-1.0); CALCIUM 8.3 mg/dL (8.5-10.1); CREATININE 6.29 mg/dL (0.55-1.02); TOTAL PROTEIN 6.9 g/dL (6.4-8.2)
[2018-04-08 07:46] VITALS: BP 104/60
[2018-04-08] MEDS: INSULIN LISPRO 100 UNITS/ML, PEN SQ-INSULIN SCH ×4 (08:25→20:58)
[2018-04-08] MEDS: SEVELAMER 2.4 GM POWD.PACK PO SCH ×3 (08:26→16:44)
[2018-04-08] MEDS ORDERED: FENTANYL PF 100 MCG/2ML ONE ×2 (13:35→14:15)
[2018-04-08] MEDS ORDERED: NALOXONE 1 MG/ML, 2ML ONE ×2 (13:35→14:15)
[2018-04-08] MEDS ORDERED: LIDOCAINE 2%, 20ML ONE (13:35)
[2018-04-08] MEDS ORDERED: MIDAZOLAM 1 MG/ML, 5ML ONE (14:22)
[2018-04-08 15:50] VITALS: BP 110/71
[2018-04-08] MEDS: AMLODIPINE 5 MG TABLET PO SCH (15:51)
[2018-04-08] MEDS: PHENAZOPYRIDINE 100 MG TABLET PO PRN (15:51)
[2018-04-08] MEDS: CITALOPRAM 10 MG TABLET PO SCH (15:51)
[2018-04-08] MEDS: CHOLECALCIFEROL 1,000 UNIT TABLET PO SCH (15:51)
[2018-04-08 20:36] VITALS: BP 84/56
[2018-04-08] MEDS: ATORVASTATIN 20 MG TABLET PO SCH (20:55)
[2018-04-08] MEDS: INSULIN GLARGINE 100 UNITS/ML, PEN SQ-INSULIN SCH (20:59)
[2018-04-08 21:21] VITALS: BP 104/70
[2018-04-09] MEDS: ERTAPENEM 0.5 GM in SODIUM CHLORIDE 0.9% 50 ML IV SCH (00:05)
[2018-04-09] MEDS: HEPARIN 5,000 UNITS/ML, 1ML SQ SCH ×3 (00:06→18:08)
[2018-04-09] MEDS: DIPHENHYDRAMINE 50 MG/ML, 1ML IVPush PRN ×4 (00:06→18:42)
[2018-04-09] MEDS: OXYcodone/APAP 10/325MG TABLET PO PRN (00:07)
[2018-04-09 02:00] VITALS: BP 118/77
[2018-04-09] MEDS: OXYcodone/APAP 5/325MG TABLET PO PRN ×3 (06:19→18:42)
[2018-04-09 06:37] LABS: ALBUMIN 3.2 g/dL (3.4-5.0); ANION GAP 8 mmol/L (5-15); CHLORIDE 102 mmol/L (98-107)
[2018-04-09 06:42] LABS: ALANINE AMINOTRANSFERASE 12 U/L (12-78); ALKALINE PHOSPHATASE 119 U/L (45-117); BILIRUBIN,TOTAL 0.5 mg/dL (0.2-1.0); CREATININE 4.96 mg/dL (0.55-1.02); TOTAL PROTEIN 7.3 g/dL (6.4-8.2)
[2018-04-09] MEDS: CHOLECALCIFEROL 1,000 UNIT TABLET PO SCH (08:18)
[2018-04-09] MEDS: SEVELAMER 2.4 GM POWD.PACK PO SCH ×3 (08:18→18:08)
[2018-04-09] MEDS: CITALOPRAM 10 MG TABLET PO SCH (08:18)
[2018-04-09] MEDS: AMLODIPINE 5 MG TABLET PO SCH (08:18)
[2018-04-09] MEDS: INSULIN LISPRO 100 UNITS/ML, PEN SQ-INSULIN SCH ×4 (08:19→20:31)
[2018-04-09 08:35] VITALS: BP 108/60
[2018-04-09 14:16] VITALS: BP 104/66
[2018-04-09 19:53] VITALS: BP 106/69
[2018-04-09] MEDS: ATORVASTATIN 20 MG TABLET PO SCH (20:42)
[2018-04-09] MEDS: INSULIN GLARGINE 100 UNITS/ML, PEN SQ-INSULIN SCH (20:44)
[2018-04-10] MEDS: DIPHENHYDRAMINE 50 MG/ML, 1ML IVPush PRN ×4 (00:45→20:44)
[2018-04-10] MEDS: ERTAPENEM 0.5 GM in SODIUM CHLORIDE 0.9% 50 ML IV SCH (00:45)
[2018-04-10] MEDS: HEPARIN 5,000 UNITS/ML, 1ML SQ SCH ×3 (00:46→17:22)
[2018-04-10 00:58] VITALS: BP 112/67
[2018-04-10 05:00] LABS: BASOPHILS # (AUTO) 0.06 x10^3/uL (0-0.1); BASOPHILS % (AUTO) 1 % (0-1); EOSINOPHILS # (AUTO) 0.46 x10^3/uL (0-0.4); EOSINOPHILS % (AUTO) 6 % (1-7); LYMPHOCYTES # (AUTO) 2.23 x10^3/uL (1-3.4); LYMPHOCYTES % (AUTO) 29 % (22-44); MD NO; MEAN CORPUSCULAR HEMOGLOBIN 32.4 pg (27.0-34.8); MEAN CORPUSCULAR HGB CONC 33.3 g/dL (32.4-35.8); MEAN CORPUSCULAR VOLUME 97.3 fL (80-100); MEAN PLATELET VOLUME 7.7 fL (7.4-10.4); MONOCYTES # (AUTO) 0.54 x10^3/uL (0.2-0.8); MONOCYTES % (AUTO) 7 % (2-9); NEUTROPHILS # (AUTO) 4.42 x10^3/uL (1.8-6.8); NEUTROPHILS % (AUTO) 57 % (42-75); PLATELET COUNT 282 x10^3/uL (130-400); RED BLOOD COUNT 3.33 x10^6/uL (3.82-5.3); RED CELL DISTRIBUTION WIDTH 13.8 % (9.6-15.2)
[2018-04-10 05:07] LABS: ANION GAP 7 mmol/L (5-15); CALCIUM 8.3 mg/dL (8.5-10.1); CHLORIDE 103 mmol/L (98-107)
[2018-04-10 05:08] LABS: CREATININE 6.27 mg/dL (0.55-1.02)
[2018-04-10] MEDS ORDERED: GLUCAGON 1 MG IM PRN (06:00)
[2018-04-10] MEDS ORDERED: DEXTROSE 4 GM TAB.CHEW PO PRN (06:00)
[2018-04-10] MEDS ORDERED: DEXTROSE 50%, 50ML SYRINGE IVPush PRN (06:00)
[2018-04-10] MEDS: OXYcodone/APAP 5/325MG TABLET PO PRN ×3 (06:20→20:44)
[2018-04-10 06:46] VITALS: BP 112/62
[2018-04-10] MEDS: INSULIN LISPRO 100 UNITS/ML, PEN SQ-INSULIN SCH ×4 (07:00→20:44)
[2018-04-10] MEDS: SEVELAMER 2.4 GM POWD.PACK PO SCH ×3 (08:00→17:00)
[2018-04-10] MEDS: AMLODIPINE 5 MG TABLET PO SCH (09:09)
[2018-04-10] MEDS: CHOLECALCIFEROL 1,000 UNIT TABLET PO SCH (09:09)
[2018-04-10] MEDS: CITALOPRAM 10 MG TABLET PO SCH (09:09)
[2018-04-10] MEDS: SODIUM CHLORIDE FLUSH 10ML SYR IVF SCH ×2 (09:09→20:43)
[2018-04-10 10:15] LABS: HCT (SEDRATE) 32.4 % (34.6-47.8)
[2018-04-10] MEDS: POLYTRIM OPHTH 10ML LEFTEYE SCH ×4 (11:08→20:45)
[2018-04-10 12:28] VITALS: BP 108/71
[2018-04-10 19:26] VITALS: BP 115/71
[2018-04-10] MEDS: ATORVASTATIN 20 MG TABLET PO SCH (20:44)
[2018-04-10] MEDS: INSULIN GLARGINE 100 UNITS/ML, PEN SQ-INSULIN SCH (20:44)
[2018-04-11] MEDS: HEPARIN 5,000 UNITS/ML, 1ML SQ SCH ×3 (00:51→17:29)
[2018-04-11] MEDS: ERTAPENEM 0.5 GM in SODIUM CHLORIDE 0.9% 50 ML IV SCH (00:51)
[2018-04-11 00:52] VITALS: BP 114/70
[2018-04-11] MEDS: DIPHENHYDRAMINE 50 MG/ML, 1ML IVPush PRN ×4 (03:07→22:13)
[2018-04-11] MEDS: POLYTRIM OPHTH 10ML LEFTEYE SCH ×5 (05:27→20:53)
[2018-04-11] MEDS: OXYcodone/APAP 5/325MG TABLET PO PRN ×2 (05:28→12:27)
[2018-04-11 05:33] LABS: ALANINE AMINOTRANSFERASE 14 U/L (12-78); ALBUMIN 3.3 g/dL (3.4-5.0); ANION GAP 7 mmol/L (5-15); CALCIUM 8.9 mg/dL (8.5-10.1); CHLORIDE 104 mmol/L (98-107); CREATININE 7.28 mg/dL (0.55-1.02)
[2018-04-11 05:35] LABS: ALKALINE PHOSPHATASE 137 U/L (45-117); BILIRUBIN,TOTAL 0.3 mg/dL (0.2-1.0); TOTAL PROTEIN 7.2 g/dL (6.4-8.2)
[2018-04-11] MEDS: INSULIN LISPRO 100 UNITS/ML, PEN SQ-INSULIN SCH ×4 (07:00→20:47)
[2018-04-11 07:09] VITALS: BP 115/68
[2018-04-11] MEDS: SEVELAMER 2.4 GM POWD.PACK PO SCH ×3 (08:00→17:00)
[2018-04-11] MEDS: CITALOPRAM 10 MG TABLET PO SCH (08:12)
[2018-04-11] MEDS: SODIUM CHLORIDE FLUSH 10ML SYR IVF SCH ×2 (08:12→20:53)
[2018-04-11] MEDS: CHOLECALCIFEROL 1,000 UNIT TABLET PO SCH (08:12)
[2018-04-11] MEDS: AMLODIPINE 5 MG TABLET PO SCH (08:14)
[2018-04-11 12:57] VITALS: BP 124/73
[2018-04-11] MEDS: ACETAMINOPHEN 500 MG TABLET PO SCH ×2 (14:19→20:52)
[2018-04-11] MEDS: OXYcodone 5 MG/5 ML ORAL.SOL UDC PO PRN (17:30)
[2018-04-11] MEDS: ATORVASTATIN 20 MG TABLET PO SCH (20:52)
[2018-04-11] MEDS: INSULIN GLARGINE 100 UNITS/ML, PEN SQ-INSULIN SCH (20:53)
[2018-04-12 00:06] VITALS: BP 96/62
[2018-04-12] MEDS: ERTAPENEM 0.5 GM in SODIUM CHLORIDE 0.9% 50 ML IV SCH (00:22)
[2018-04-12] MEDS: HEPARIN 5,000 UNITS/ML, 1ML SQ SCH ×3 (02:20→17:34)
[2018-04-12] MEDS: ACETAMINOPHEN 500 MG TABLET PO SCH ×4 (02:20→21:59)
[2018-04-12] MEDS: OXYcodone 5 MG/5 ML ORAL.SOL UDC PO PRN ×2 (02:20→12:02)
[2018-04-12] MEDS: DIPHENHYDRAMINE 50 MG/ML, 1ML IVPush PRN ×3 (04:17→16:42)
[2018-04-12] MEDS: POLYTRIM OPHTH 10ML LEFTEYE SCH ×5 (04:17→22:01)
[2018-04-12 05:31] LABS: BASOPHILS # (AUTO) 0.09 x10^3/uL (0-0.1); BASOPHILS % (AUTO) 1 % (0-1); EOSINOPHILS # (AUTO) 0.41 x10^3/uL (0-0.4); EOSINOPHILS % (AUTO) 5 % (1-7); LYMPHOCYTES % (AUTO) 23 % (22-44); MD NO; MEAN CORPUSCULAR HEMOGLOBIN 32.4 pg (27.0-34.8); MEAN CORPUSCULAR HGB CONC 33.1 g/dL (32.4-35.8); MEAN CORPUSCULAR VOLUME 97.7 fL (80-100); MEAN PLATELET VOLUME 7.7 fL (7.4-10.4); MONOCYTES # (AUTO) 0.39 x10^3/uL (0.2-0.8); MONOCYTES % (AUTO) 5 % (2-9); NEUTROPHILS # (AUTO) 5.33 x10^3/uL (1.8-6.8); NEUTROPHILS % (AUTO) 66 % (42-75); PLATELET COUNT 253 x10^3/uL (130-400); RED BLOOD COUNT 3.44 x10^6/uL (3.82-5.3); RED CELL DISTRIBUTION WIDTH 13.8 % (9.6-15.2)
[2018-04-12 05:42] LABS: CHLORIDE 103 mmol/L (98-107)
[2018-04-12 05:48] LABS: ALBUMIN 3.2 g/dL (3.4-5.0); ANION GAP 8 mmol/L (5-15); CALCIUM 8.6 mg/dL (8.5-10.1)
[2018-04-12] MEDS: INSULIN LISPRO 100 UNITS/ML, PEN SQ-INSULIN SCH ×4 (07:00→21:00)
[2018-04-12 07:55] VITALS: BP 98/64
[2018-04-12] MEDS: SEVELAMER 2.4 GM POWD.PACK PO SCH ×3 (08:00→17:00)
[2018-04-12] MEDS: CITALOPRAM 10 MG TABLET PO SCH (08:31)
[2018-04-12] MEDS: CHOLECALCIFEROL 1,000 UNIT TABLET PO SCH (08:31)
[2018-04-12] MEDS: AMLODIPINE 5 MG TABLET PO SCH ×2 (08:31→09:00)
[2018-04-12] MEDS: SODIUM CHLORIDE FLUSH 10ML SYR IVF SCH ×2 (08:44→22:00)
[2018-04-12 13:15] VITALS: BP 112/73
[2018-04-12 20:26] VITALS: BP 96/54
[2018-04-12] MEDS: ATORVASTATIN 20 MG TABLET PO SCH (21:59)
[2018-04-12] MEDS: INSULIN GLARGINE 100 UNITS/ML, PEN SQ-INSULIN SCH (22:00)
[2018-04-13] MEDS: DIPHENHYDRAMINE 50 MG/ML, 1ML IVPush PRN ×4 (00:28→22:40)
[2018-04-13] MEDS: HEPARIN 5,000 UNITS/ML, 1ML SQ SCH ×3 (00:28→17:00)
[2018-04-13] MEDS: ERTAPENEM 0.5 GM in SODIUM CHLORIDE 0.9% 50 ML IV SCH (00:29)
[2018-04-13 01:49] VITALS: BP 100/62
[2018-04-13] MEDS: ACETAMINOPHEN 500 MG TABLET PO SCH ×4 (04:24→21:18)
[2018-04-13] MEDS: POLYTRIM OPHTH 10ML LEFTEYE SCH ×5 (06:32→21:20)
[2018-04-13] MEDS: INSULIN LISPRO 100 UNITS/ML, PEN SQ-INSULIN SCH ×4 (07:00→21:20)
[2018-04-13 07:58] VITALS: BP 106/64
[2018-04-13] MEDS: SEVELAMER 2.4 GM POWD.PACK PO SCH ×3 (08:24→17:00)
[2018-04-13] MEDS: CITALOPRAM 10 MG TABLET PO SCH (08:24)
[2018-04-13] MEDS: CHOLECALCIFEROL 1,000 UNIT TABLET PO SCH (08:24)
[2018-04-13] MEDS: AMLODIPINE 5 MG TABLET PO SCH (08:25)
[2018-04-13] MEDS: SODIUM CHLORIDE FLUSH 10ML SYR IVF SCH ×2 (08:25→21:17)
[2018-04-13] MEDS: DARBEPOETIN 100 MCG/ML SQ SCH (11:52)
[2018-04-13 14:04] VITALS: BP 110/69
[2018-04-13 20:15] VITALS: BP 79/56
[2018-04-13 21:13] VITALS: BP 105/68
[2018-04-13] MEDS: ATORVASTATIN 20 MG TABLET PO SCH (21:18)
[2018-04-13] MEDS: INSULIN GLARGINE 100 UNITS/ML, PEN SQ-INSULIN SCH (21:20)
[2018-04-14] MEDS: HEPARIN 5,000 UNITS/ML, 1ML SQ SCH ×3 (00:13→17:56)
[2018-04-14] MEDS: ERTAPENEM 0.5 GM in SODIUM CHLORIDE 0.9% 50 ML IV SCH (00:13)
[2018-04-14 02:23] VITALS: BP 105/68
[2018-04-14 05:17] LABS: ALBUMIN 3.3 g/dL (3.4-5.0); ANION GAP 8 mmol/L (5-15); CALCIUM 8.7 mg/dL (8.5-10.1); CHLORIDE 106 mmol/L (98-107); CREATININE 4.68 mg/dL (0.55-1.02)
[2018-04-14 05:21] LABS: ALANINE AMINOTRANSFERASE 23 U/L (12-78); ALKALINE PHOSPHATASE 129 U/L (45-117); BILIRUBIN,TOTAL 0.3 mg/dL (0.2-1.0); TOTAL PROTEIN 7.1 g/dL (6.4-8.2)
[2018-04-14] MEDS: ACETAMINOPHEN 500 MG TABLET PO SCH ×4 (05:37→22:12)
[2018-04-14] MEDS: POLYTRIM OPHTH 10ML LEFTEYE SCH ×5 (05:37→22:12)
[2018-04-14] MEDS: DIPHENHYDRAMINE 50 MG/ML, 1ML IVPush PRN ×3 (05:37→19:50)
[2018-04-14 08:00] VITALS: BP 110/70
[2018-04-14] MEDS: INSULIN LISPRO 100 UNITS/ML, PEN SQ-INSULIN SCH ×4 (09:11→21:00)
[2018-04-14] MEDS: CHOLECALCIFEROL 1,000 UNIT TABLET PO SCH (09:12)
[2018-04-14] MEDS: AMLODIPINE 5 MG TABLET PO SCH (09:12)
[2018-04-14] MEDS: CITALOPRAM 10 MG TABLET PO SCH (09:12)
[2018-04-14] MEDS: SODIUM CHLORIDE FLUSH 10ML SYR IVF SCH ×2 (09:12→22:14)
[2018-04-14] MEDS ORDERED: SEVELAMER CARBONATE 800MG TAB PO SCH (09:25)
[2018-04-14] MEDS: OXYcodone 5 MG/5 ML ORAL.SOL UDC PO PRN (12:17)
[2018-04-14] MEDS: SEVELAMER CARBONATE 800MG TAB PO SCH ×2 (12:19→17:55)
[2018-04-14 13:24] VITALS: BP 130/84
[2018-04-14 19:54] VITALS: BP 122/74
[2018-04-14] MEDS: ATORVASTATIN 20 MG TABLET PO SCH (22:12)
[2018-04-14] MEDS: INSULIN GLARGINE 100 UNITS/ML, PEN SQ-INSULIN SCH (22:13)
[2018-04-15] MEDS: HEPARIN 5,000 UNITS/ML, 1ML SQ SCH ×3 (00:12→19:00)
[2018-04-15] MEDS: ERTAPENEM 0.5 GM in SODIUM CHLORIDE 0.9% 50 ML IV SCH (00:12)
[2018-04-15 01:41] VITALS: BP 108/69
[2018-04-15] MEDS: DIPHENHYDRAMINE 50 MG/ML, 1ML IVPush PRN (02:13)
[2018-04-15] MEDS: ACETAMINOPHEN 500 MG TABLET PO SCH ×4 (04:00→20:55)
[2018-04-15] MEDS: POLYTRIM OPHTH 10ML LEFTEYE SCH ×4 (05:15→20:56)
[2018-04-15 06:53] VITALS: BP 113/69
[2018-04-15] MEDS: SEVELAMER CARBONATE 800MG TAB PO SCH ×3 (08:00→17:39)
[2018-04-15] MEDS: INSULIN LISPRO 100 UNITS/ML, PEN SQ-INSULIN SCH ×4 (08:15→20:56)
[2018-04-15] MEDS: CHOLECALCIFEROL 1,000 UNIT TABLET PO SCH (08:27)
[2018-04-15] MEDS: SODIUM CHLORIDE FLUSH 10ML SYR IVF SCH ×2 (08:27→20:56)
[2018-04-15] MEDS: CITALOPRAM 10 MG TABLET PO SCH (08:27)
[2018-04-15] MEDS: AMLODIPINE 5 MG TABLET PO SCH (08:27)
[2018-04-15] MEDS ORDERED: DIPHENHYDRAMINE 50 MG/ML, 1ML IVPush PRN ×3 (09:30→18:30)
[2018-04-15] MEDS: OXYcodone 5 MG/5 ML ORAL.SOL UDC PO PRN (12:26)
[2018-04-15 13:09] VITALS: BP 110/70
[2018-04-15] MEDS ORDERED: SODIUM CHLORIDE 0.9% 1,000 ML IV SCH (14:49)
[2018-04-15] MEDS ORDERED: FENTANYL PF 100 MCG/2ML ONE ×2 (14:57→16:38)
[2018-04-15] MEDS ORDERED: EPINEPHRINE 1 MG/ML, 1ML ONE (15:23)
[2018-04-15] MEDS ORDERED: PROPOFOL 10 MG/ML, 20ML ONE (15:23)
[2018-04-15] MEDS ORDERED: GLYCOPYRROLATE 0.2MG/1ML, 5ML ONE (15:23)
[2018-04-15] MEDS ORDERED: ROCURONIUM 10MG/ML,5ML ONE (15:23)
[2018-04-15] MEDS ORDERED: NEOSTIGMINE 1 MG/ML, 10ML ONE (15:23)
[2018-04-15 15:31] LABS: PROTHROMBIN TIME 10.3 Seconds (9.6-11.5)
[2018-04-15 15:32] LABS: ALANINE AMINOTRANSFERASE 27 U/L (12-78); ALBUMIN 3.4 g/dL (3.4-5.0); ANION GAP 10 mmol/L (5-15); CALCIUM 8.6 mg/dL (8.5-10.1); CHLORIDE 106 mmol/L (98-107)
[2018-04-15 15:35] LABS: ALKALINE PHOSPHATASE 134 U/L (45-117); BILIRUBIN,TOTAL 0.3 mg/dL (0.2-1.0); CREATININE 6.47 mg/dL (0.55-1.02); TOTAL PROTEIN 7.2 g/dL (6.4-8.2)
[2018-04-15] MEDS ORDERED: OXYcodone 5 MG/5 ML ORAL.SOL UDC ONE (16:38)
[2018-04-15] MEDS ORDERED: DIPHENHYDRAMINE 50 MG/ML, 1ML ONE (16:44)
[2018-04-15] MEDS ORDERED: OMNIPAQUE 350 MG/ML, 50 ML BOTTLE ONE (16:50)
[2018-04-15] MEDS ORDERED: EPHEDRINE 50 MG/ML, 1ML IM PRN (17:00)
[2018-04-15] MEDS ORDERED: OXYcodone 5 MG/5 ML ORAL.SOL UDC PO PRN (17:00)
[2018-04-15] MEDS ORDERED: FENTANYL PF 100 MCG/2ML IV PRN (17:00)
[2018-04-15] MEDS ORDERED: ACETAMINOPHEN 325 MG TABLET PO PRN (17:00)
[2018-04-15] MEDS ORDERED: ALBUTEROL SULFATE 2.5 MG/3 ML NPPB PRN (17:00)
[2018-04-15] MEDS ORDERED: HYDROmorphone 1 MG/ML, 1ML IV ONE (18:30)
[2018-04-15 20:02] VITALS: BP 108/63
[2018-04-15] MEDS: DIPHENHYDRAMINE 25 MG CAPSULE PO SCH (20:55)
[2018-04-15] MEDS: ATORVASTATIN 20 MG TABLET PO SCH (20:56)
[2018-04-15] MEDS: INSULIN GLARGINE 100 UNITS/ML, PEN SQ-INSULIN SCH (20:58)
[2018-04-15] MEDS ORDERED: ATORVASTATIN 20 MG TABLET PO SCH (21:00)
[2018-04-15] MEDS ORDERED: HYDROmorphone 2 MG/ML, 1ML ONE (22:56)
[2018-04-16] MEDS: ERTAPENEM 0.5 GM in SODIUM CHLORIDE 0.9% 50 ML IV SCH (00:55)
[2018-04-16] MEDS: POLYTRIM OPHTH 10ML LEFTEYE SCH ×6 (00:55→21:28)
[2018-04-16] MEDS: HEPARIN 5,000 UNITS/ML, 1ML SQ SCH ×3 (03:00→21:47)
[2018-04-16 03:35] VITALS: BP 113/71
[2018-04-16] MEDS: ACETAMINOPHEN 500 MG TABLET PO SCH ×4 (03:45→21:28)
[2018-04-16] MEDS: OXYcodone 5 MG/5 ML ORAL.SOL UDC PO PRN (03:45)
[2018-04-16] MEDS: DIPHENHYDRAMINE 25 MG CAPSULE PO SCH ×4 (05:14→21:00)
[2018-04-16 05:28] LABS: CALCIUM 8.7 mg/dL (8.5-10.1); CHLORIDE 105 mmol/L (98-107)
[2018-04-16 05:37] LABS: ALANINE AMINOTRANSFERASE 25 U/L (12-78); ALBUMIN 3.1 g/dL (3.4-5.0); ALKALINE PHOSPHATASE 123 U/L (45-117); ANION GAP 10 mmol/L (5-15); BILIRUBIN,TOTAL 0.7 mg/dL (0.2-1.0); TOTAL PROTEIN 6.7 g/dL (6.4-8.2)
[2018-04-16 07:00] VITALS: BP 121/69
[2018-04-16] MEDS: INSULIN LISPRO 100 UNITS/ML, PEN SQ-INSULIN SCH ×4 (07:00→21:28)
[2018-04-16] MEDS: SODIUM CHLORIDE FLUSH 10ML SYR IVF SCH ×2 (07:53→21:28)
[2018-04-16] MEDS: AMLODIPINE 5 MG TABLET PO SCH (07:53)
[2018-04-16] MEDS: SEVELAMER CARBONATE 800MG TAB PO SCH ×3 (08:00→16:49)
[2018-04-16] MEDS: CITALOPRAM 10 MG TABLET PO SCH (08:38)
[2018-04-16] MEDS: CHOLECALCIFEROL 1,000 UNIT TABLET PO SCH (08:38)
[2018-04-16] MEDS ORDERED: OXYcodone 5 MG/5 ML ORAL.SOL UDC PO PRN (10:00)
[2018-04-16] MEDS: DIPHENHYDRAMINE 50 MG/ML, 1ML IVPush PRN ×2 (11:53→17:03)
[2018-04-16] MEDS ORDERED: HYDROmorphone 2 MG/ML, 1ML ONE ×2 (13:55→21:41)
[2018-04-16 14:00] VITALS: BP 129/81
[2018-04-16] MEDS: HYDROmorphone 1 MG/ML, 1ML IV PRN ×2 (14:02→21:47)
[2018-04-16 20:44] VITALS: BP 103/66
[2018-04-16] MEDS: ATORVASTATIN 20 MG TABLET PO SCH (21:27)
[2018-04-16] MEDS: INSULIN GLARGINE 100 UNITS/ML, PEN SQ-INSULIN SCH (21:29)
[2018-04-17 00:23] VITALS: BP 108/67
[2018-04-17] MEDS: ERTAPENEM 0.5 GM in SODIUM CHLORIDE 0.9% 50 ML IV SCH (01:04)
[2018-04-17] MEDS ORDERED: HYDROmorphone 2 MG/ML, 1ML ONE ×4 (03:47→23:54)
[2018-04-17] MEDS: POLYTRIM OPHTH 10ML LEFTEYE SCH ×5 (05:12→21:28)
[2018-04-17] MEDS: DIPHENHYDRAMINE 25 MG CAPSULE PO SCH ×4 (05:13→21:28)
[2018-04-17] MEDS: ACETAMINOPHEN 500 MG TABLET PO SCH (05:13)
[2018-04-17] MEDS: HYDROmorphone 1 MG/ML, 1ML IV PRN ×4 (05:13→23:58)
[2018-04-17] MEDS: HEPARIN 5,000 UNITS/ML, 1ML SQ SCH ×3 (05:17→21:29)
[2018-04-17 06:53] VITALS: BP 113/70
[2018-04-17] MEDS: INSULIN LISPRO 100 UNITS/ML, PEN SQ-INSULIN SCH ×4 (07:00→21:00)
[2018-04-17] MEDS: SEVELAMER CARBONATE 800MG TAB PO SCH ×3 (08:00→16:56)
[2018-04-17] MEDS: CITALOPRAM 10 MG TABLET PO SCH (08:46)
[2018-04-17] MEDS: SODIUM CHLORIDE FLUSH 10ML SYR IVF SCH ×2 (08:46→21:28)
[2018-04-17] MEDS: CHOLECALCIFEROL 1,000 UNIT TABLET PO SCH (08:46)
[2018-04-17] MEDS: AMLODIPINE 5 MG TABLET PO SCH (08:47)
[2018-04-17] MEDS ORDERED: DIPHENHYDRAMINE 50 MG/ML, 1ML IVPush ONE (10:00)
[2018-04-17] MEDS ORDERED: DIPHENHYDRAMINE 50 MG/ML, 1ML IVPush PRN ×2 (10:00→15:30)
[2018-04-17 12:44] VITALS: BP 108/71
[2018-04-17 20:09] VITALS: BP 113/71
[2018-04-17] MEDS: ATORVASTATIN 20 MG TABLET PO SCH (21:28)
[2018-04-17] MEDS: INSULIN GLARGINE 100 UNITS/ML, PEN SQ-INSULIN SCH (21:28)
[2018-04-18] MEDS: ERTAPENEM 0.5 GM in SODIUM CHLORIDE 0.9% 50 ML IV SCH (00:34)
[2018-04-18 04:07] VITALS: BP 108/66
[2018-04-18] MEDS: POLYTRIM OPHTH 10ML LEFTEYE SCH ×5 (05:23→20:38)
[2018-04-18] MEDS: DIPHENHYDRAMINE 25 MG CAPSULE PO SCH ×4 (05:24→20:36)
[2018-04-18] MEDS: HEPARIN 5,000 UNITS/ML, 1ML SQ SCH ×3 (05:24→20:38)
[2018-04-18] MEDS ORDERED: HYDROmorphone 2 MG/ML, 1ML ONE (06:18)
[2018-04-18 06:59] VITALS: BP 109/67
[2018-04-18] MEDS: INSULIN LISPRO 100 UNITS/ML, PEN SQ-INSULIN SCH ×2 (07:00→11:00)
[2018-04-18] MEDS: SEVELAMER CARBONATE 800MG TAB PO SCH ×3 (08:00→17:00)
[2018-04-18] MEDS: OXYcodone 5 MG/5 ML ORAL.SOL UDC PO PRN ×2 (08:22→17:25)
[2018-04-18] MEDS: CHOLECALCIFEROL 1,000 UNIT TABLET PO SCH (08:22)
[2018-04-18] MEDS: CITALOPRAM 10 MG TABLET PO SCH (08:22)
[2018-04-18] MEDS: SODIUM CHLORIDE FLUSH 10ML SYR IVF SCH ×2 (08:22→20:38)
[2018-04-18] MEDS: AMLODIPINE 5 MG TABLET PO SCH (08:23)
[2018-04-18] MEDS ORDERED: FENTANYL PF 100 MCG/2ML ONE (11:26)
[2018-04-18] MEDS ORDERED: NALOXONE 1 MG/ML, 2ML ONE (11:26)
[2018-04-18] MEDS ORDERED: MIDAZOLAM 1 MG/ML, 5ML ONE (11:26)
[2018-04-18] MEDS ORDERED: FLUMAZENIL 0.1 MG/1 ML, 5ML ONE (11:26)
[2018-04-18 12:59] VITALS: BP 106/66
[2018-04-18 19:17] VITALS: BP 99/67
[2018-04-18] MEDS: ATORVASTATIN 20 MG TABLET PO SCH (20:36)
[2018-04-18] MEDS: INSULIN GLARGINE 100 UNITS/ML, PEN SQ-INSULIN SCH (20:37)
[2018-04-19 00:18] VITALS: BP 115/70
[2018-04-19] MEDS: ERTAPENEM 0.5 GM in SODIUM CHLORIDE 0.9% 50 ML IV SCH (01:20)
[2018-04-19 05:31] LABS: BASOPHILS # (AUTO) 0.12 x10^3/uL (0-0.1); BASOPHILS % (AUTO) 2 % (0-1); EOSINOPHILS # (AUTO) 0.51 x10^3/uL (0-0.4); EOSINOPHILS % (AUTO) 8 % (1-7); LYMPHOCYTES # (AUTO) 1.52 x10^3/uL (1-3.4); LYMPHOCYTES % (AUTO) 23 % (22-44); MD NO; MEAN CORPUSCULAR HGB CONC 33.1 g/dL (32.4-35.8); MEAN CORPUSCULAR VOLUME 96.9 fL (80-100); MEAN PLATELET VOLUME 7.6 fL (7.4-10.4); MONOCYTES # (AUTO) 0.38 x10^3/uL (0.2-0.8); MONOCYTES % (AUTO) 6 % (2-9); NEUTROPHILS # (AUTO) 4.03 x10^3/uL (1.8-6.8); NEUTROPHILS % (AUTO) 61 % (42-75); PLATELET COUNT 270 x10^3/uL (130-400); RED BLOOD COUNT 3.66 x10^6/uL (3.82-5.3); RED CELL DISTRIBUTION WIDTH 14.3 % (9.6-15.2)
[2018-04-19] MEDS: HEPARIN 5,000 UNITS/ML, 1ML SQ SCH ×3 (05:43→22:12)
[2018-04-19] MEDS: POLYTRIM OPHTH 10ML LEFTEYE SCH ×5 (05:43→22:12)
[2018-04-19] MEDS: DIPHENHYDRAMINE 25 MG CAPSULE PO SCH ×4 (05:43→21:15)
[2018-04-19 05:45] LABS: CHLORIDE 100 mmol/L (98-107)
[2018-04-19 05:56] LABS: ALANINE AMINOTRANSFERASE 21 U/L (12-78); ALBUMIN 3.4 g/dL (3.4-5.0); ALKALINE PHOSPHATASE 139 U/L (45-117); ANION GAP 10 mmol/L (5-15); BILIRUBIN,TOTAL 0.5 mg/dL (0.2-1.0); CALCIUM 9.2 mg/dL (8.5-10.1); CREATININE 4.69 mg/dL (0.55-1.02); TOTAL PROTEIN 7.5 g/dL (6.4-8.2)
[2018-04-19 07:16] VITALS: BP 114/70
[2018-04-19] MEDS: SEVELAMER CARBONATE 800MG TAB PO SCH ×3 (08:44→16:43)
[2018-04-19] MEDS: CITALOPRAM 10 MG TABLET PO SCH (08:44)
[2018-04-19] MEDS: CHOLECALCIFEROL 1,000 UNIT TABLET PO SCH (08:44)
[2018-04-19] MEDS: AMLODIPINE 5 MG TABLET PO SCH (08:45)
[2018-04-19] MEDS: SODIUM CHLORIDE FLUSH 10ML SYR IVF SCH ×2 (08:45→21:15)
[2018-04-19] MEDS ORDERED: CIPROFLOXACIN 250 MG TABLET PO SCH (10:00)
[2018-04-19] MEDS: HYDROCORTISONE 100 MG INJ. IVPush SCH ×2 (10:31→22:12)
[2018-04-19] MEDS: CIPROFLOXACIN 250 MG TABLET PO SCH (12:26)
[2018-04-19] MEDS: OXYcodone 5 MG/5 ML ORAL.SOL UDC PO PRN ×2 (12:38→16:43)
[2018-04-19 12:49] VITALS: BP 109/71
[2018-04-19] MEDS: ACETAMINOPHEN 500 MG TABLET PO PRN (14:28)
[2018-04-19 19:08] VITALS: BP 114/74
[2018-04-19] MEDS: LIDODERM 5% PATCH TD SCH (19:54)
[2018-04-19] MEDS ORDERED: HYDROmorphone 1 MG/ML, 1ML IV ONE (21:00)
[2018-04-19] MEDS ORDERED: HYDROmorphone 2 MG/ML, 1ML ONE (21:08)
[2018-04-19] MEDS: ATORVASTATIN 20 MG TABLET PO SCH (21:15)
[2018-04-19] MEDS: INSULIN GLARGINE 100 UNITS/ML, PEN SQ-INSULIN SCH (21:16)
[2018-04-20] MEDS: ERTAPENEM 0.5 GM in SODIUM CHLORIDE 0.9% 50 ML IV SCH (01:15)
[2018-04-20 01:19] VITALS: BP 119/71
[2018-04-20] MEDS: OXYcodone 5 MG/5 ML ORAL.SOL UDC PO PRN ×2 (01:21→16:07)
[2018-04-20] MEDS: ACETAMINOPHEN 500 MG TABLET PO PRN (04:10)
[2018-04-20] MEDS: DIPHENHYDRAMINE 25 MG CAPSULE PO SCH ×5 (05:42→21:43)
[2018-04-20] MEDS: HEPARIN 5,000 UNITS/ML, 1ML SQ SCH ×3 (05:42→21:42)
[2018-04-20] MEDS: POLYTRIM OPHTH 10ML LEFTEYE SCH ×5 (05:42→21:51)
[2018-04-20 05:54] LABS: ALBUMIN 3.2 g/dL (3.4-5.0); ANION GAP 10 mmol/L (5-15); CALCIUM 9.2 mg/dL (8.5-10.1); CHLORIDE 97 mmol/L (98-107)
[2018-04-20 05:58] LABS: ALANINE AMINOTRANSFERASE 18 U/L (12-78); ALKALINE PHOSPHATASE 129 U/L (45-117); BILIRUBIN,TOTAL 0.3 mg/dL (0.2-1.0); CREATININE 6.51 mg/dL (0.55-1.02)
[2018-04-20 08:05] VITALS: BP 128/77
[2018-04-20] MEDS: SODIUM CHLORIDE FLUSH 10ML SYR IVF SCH ×2 (08:44→21:43)
[2018-04-20] MEDS: CHOLECALCIFEROL 1,000 UNIT TABLET PO SCH (08:44)
[2018-04-20] MEDS: CITALOPRAM 10 MG TABLET PO SCH (08:44)
[2018-04-20] MEDS: SEVELAMER CARBONATE 800MG TAB PO SCH ×3 (08:44→16:43)
[2018-04-20] MEDS: AMLODIPINE 5 MG TABLET PO SCH (09:00)
[2018-04-20] MEDS: HYDROCORTISONE 100 MG INJ. IVPush SCH ×2 (10:14→21:42)
[2018-04-20] MEDS: DARBEPOETIN 100 MCG/ML SQ SCH (10:14)
[2018-04-20] MEDS ORDERED: DIPHENHYDRAMINE 50 MG/ML, 1ML IVPush ONE ×3 (10:30→23:00)
[2018-04-20] MEDS ORDERED: HYDROCORTISONE/PRAMOXINE CRM 1-1%, 30GM TP PRN (11:00)
[2018-04-20] MEDS: CIPROFLOXACIN 250 MG TABLET PO SCH (11:34)
[2018-04-20] MEDS: INSULIN LISPRO 100 UNITS/ML, PEN SQ-INSULIN SCH ×3 (11:34→21:45)
[2018-04-20 13:52] VITALS: BP 144/78
[2018-04-20 20:55] VITALS: BP 110/68
[2018-04-20] MEDS ORDERED: INSULIN GLARGINE 100 UNITS/ML, PEN SQ-INSULIN SCH (21:00)
[2018-04-20] MEDS: ATORVASTATIN 20 MG TABLET PO SCH (21:43)
[2018-04-20] MEDS: LIDODERM 5% PATCH TD SCH (21:44)
[2018-04-21 02:48] VITALS: BP 134/78
[2018-04-21] MEDS: DIPHENHYDRAMINE 25 MG CAPSULE PO SCH ×2 (05:09→10:33)
[2018-04-21] MEDS: HEPARIN 5,000 UNITS/ML, 1ML SQ SCH ×2 (05:09→14:00)
[2018-04-21] MEDS: OXYcodone 5 MG/5 ML ORAL.SOL UDC PO PRN (05:10)
[2018-04-21] MEDS: POLYTRIM OPHTH 10ML LEFTEYE SCH (05:11)
[2018-04-21 06:36] LABS: ALBUMIN 3.4 g/dL (3.4-5.0); ANION GAP 10 mmol/L (5-15); CALCIUM 8.8 mg/dL (8.5-10.1); CHLORIDE 96 mmol/L (98-107)
[2018-04-21 06:41] LABS: ALANINE AMINOTRANSFERASE 19 U/L (12-78); ALKALINE PHOSPHATASE 142 U/L (45-117); BILIRUBIN,TOTAL 0.4 mg/dL (0.2-1.0); CREATININE 4.35 mg/dL (0.55-1.02); TOTAL PROTEIN 7.4 g/dL (6.4-8.2)
[2018-04-21 07:52] VITALS: BP 115/72
[2018-04-21] MEDS: CHOLECALCIFEROL 1,000 UNIT TABLET PO SCH (08:09)
[2018-04-21] MEDS: CITALOPRAM 10 MG TABLET PO SCH (08:09)
[2018-04-21] MEDS: SEVELAMER CARBONATE 800MG TAB PO SCH ×2 (08:10→11:51)
[2018-04-21] MEDS: CIPROFLOXACIN 250 MG TABLET PO SCH (08:10)
[2018-04-21] MEDS: SODIUM CHLORIDE FLUSH 10ML SYR IVF SCH (08:10)
[2018-04-21] MEDS: INSULIN LISPRO 100 UNITS/ML, PEN SQ-INSULIN SCH ×2 (08:11→11:52)
[2018-04-21] MEDS: AMLODIPINE 5 MG TABLET PO SCH (08:11)
[2018-04-21] MEDS: HYDROCORTISONE 100 MG INJ. IVPush SCH (08:11)
[2018-04-21] MEDS ORDERED: predniSONE 5 MG/5 ML ORAL SOL PO SCH (09:00)
[2018-04-21] MEDS ORDERED: DIPH25CA61 PO (10:14)
[2018-04-21] MEDS ORDERED: OXYC5SOL8 PO (10:14)
[2018-04-21] MEDS ORDERED: PRED5SOL PO (10:14)
[2018-04-21] MEDS ORDERED: CIPR250T27 PO (10:14)
[2018-04-21 13:56] VITALS: BP 120/75
[2018-04-21] MEDS ORDERED: CIPROFLOXACIN 250 MG TABLET PO SCH (18:00)
== END 2018-04-21 17:29 | disposition home or self-care (01) | DRG 314 ==
LOC: ED 19:39 → EDIP 21:00 → 3NE 23:25 → 4EST 04-06 15:05
PROVIDERS: ADMIT Family Medicine; ATTEND Family Medicine
PROC: 5A1D70Z Performance of Urinary Filtration, Intermittent, Less than 6 Hours Per Day (ICD-10-PCS; 2018-04-05)
PROC: 5A1D70Z Performance of Urinary Filtration, Intermittent, Less than 6 Hours Per Day (ICD-10-PCS; 2018-04-06)
PROC: 5A1D70Z Performance of Urinary Filtration, Intermittent, Less than 6 Hours Per Day (ICD-10-PCS; 2018-04-08)
PROC: 02PAX3Z Removal of Infusion Device from Heart, External Approach (ICD-10-PCS; 2018-04-08)
PROC: 02H633Z Insertion of Infusion Device into Right Atrium, Percutaneous Approach (ICD-10-PCS; 2018-04-08)
PROC: B51V1ZA Fluoroscopy of Other Veins using Low Osmolar Contrast, Guidance (ICD-10-PCS; 2018-04-08)
PROC: 5A1D70Z Performance of Urinary Filtration, Intermittent, Less than 6 Hours Per Day (ICD-10-PCS; 2018-04-11)
PROC: 5A1D70Z Performance of Urinary Filtration, Intermittent, Less than 6 Hours Per Day (ICD-10-PCS; 2018-04-13)
PROC: BT1B1ZZ Fluoroscopy of Bladder and Urethra using Low Osmolar Contrast (ICD-10-PCS; 2018-04-15)
PROC: 0T9B70Z Drainage of Bladder with Drainage Device, Via Natural or Artificial Opening (ICD-10-PCS; 2018-04-15)
PROC: 0TJ98ZZ Inspection of Ureter, Via Natural or Artificial Opening Endoscopic (ICD-10-PCS; principal; 2018-04-15 15:00)
PROC: 5A1D70Z Performance of Urinary Filtration, Intermittent, Less than 6 Hours Per Day (ICD-10-PCS; 2018-04-16)
PROC: 5A1D70Z Performance of Urinary Filtration, Intermittent, Less than 6 Hours Per Day (ICD-10-PCS; 2018-04-18)
PROC: 5A1D70Z Performance of Urinary Filtration, Intermittent, Less than 6 Hours Per Day (ICD-10-PCS; 2018-04-20)
DX: T82.41XA Breakdown (mechanical) of vascular dialysis catheter, initial encounter (principal); N18.6 End stage renal disease; N10 Acute pyelonephritis; I12.0 Hypertensive chronic kidney disease with stage 5 chronic kidney disease or end stage renal disease; J98.11 Atelectasis; E11.22 Type 2 diabetes mellitus with diabetic chronic kidney disease; B96.20 Unspecified Escherichia coli [E. coli] as the cause of diseases classified elsewhere; D63.1 Anemia in chronic kidney disease; Z99.2 Dependence on renal dialysis; E78.5 Hyperlipidemia, unspecified; F32.9 Major depressive disorder, single episode, unspecified; H10.9 Unspecified conjunctivitis; K59.00 Constipation, unspecified; L29.9 Pruritus, unspecified; N20.0 Calculus of kidney; N28.1 Cyst of kidney, acquired; T38.0X5A Adverse effect of glucocorticoids and synthetic analogues, initial encounter; Z88.8 Allergy status to other drugs, medicaments and biological substances; Z88.6 Allergy status to analgesic agent; Z91.018 Allergy to other foods; Z83.3 Family history of diabetes mellitus; Z86.19 Personal history of other infectious and parasitic diseases; Z87.440 Personal history of urinary (tract) infections; Z87.442 Personal history of urinary calculi; Z88.1 Allergy status to other antibiotic agents; Z79.899 Other long term (current) drug therapy; Z90.5 Acquired absence of kidney; Z90.710 Acquired absence of both cervix and uterus; E11.65 Type 2 diabetes mellitus with hyperglycemia; Z90.49 Acquired absence of other specified parts of digestive tract; Z79.4 Long term (current) use of insulin; Z16.12 Extended spectrum beta lactamase (ESBL) resistance; H54.62 Unqualified visual loss, left eye, normal vision right eye; Y83.9 Surgical procedure, unspecified as the cause of abnormal reaction of the patient, or of later complication, without mention of misadventure at the time of the procedure; Y92.89 Other specified places as the place of occurrence of the external cause
CPT/HCPCS: 36415; 36581; 71045; 71046; 74176; 74420; 75984; 77001; 80048; 80053; 80069; 81001; 81025; 82947; 82962; 83690; 83735; 84100; 85025; 85610; 85651; 85730; 86140; 87077; 87086; 87186; 93005; 96372; 96374; 99156; 99157; C1725; J0171; J0881; J1170; J1335; J1644; J2250; J2550; J2704; J2710; J3010; J3490; J7512; Q0162; Q9967; C1750; J1200; J1642; J1720; J1815; J2310; Q0163

== ENCOUNTER 2018-04-25 21:39 | Emergency (ER) | payer MEDICARE ==
[~2018-04-25] VITALS: Ht 165.1 cm; Wt 81.1 kg
[~2018-04-25 21:39] MED LIST changes: +CIPR250T27 PO; +OXYC5SOL8 PO; +PRED5SOL PO
[2018-04-25] MEDS ORDERED: SODIUM CHLORIDE FLUSH 10ML SYR IVF ONE (22:30)
[2018-04-25 22:45] LABS: BASOPHILS # (AUTO) 0.04 x10^3/uL (0-0.1); BASOPHILS % (AUTO) 0 % (0-1); EOSINOPHILS # (AUTO) 0.28 x10^3/uL (0-0.4); EOSINOPHILS % (AUTO) 3 % (1-7); LYMPHOCYTES # (AUTO) 1.52 x10^3/uL (1-3.4); LYMPHOCYTES % (AUTO) 17 % (22-44); MD NO; MEAN CORPUSCULAR HEMOGLOBIN 31.3 pg (27.0-34.8); MEAN CORPUSCULAR HGB CONC 32.2 g/dL (32.4-35.8); MEAN CORPUSCULAR VOLUME 97.4 fL (80-100); MEAN PLATELET VOLUME 7.7 fL (7.4-10.4); MONOCYTES # (AUTO) 0.71 x10^3/uL (0.2-0.8); MONOCYTES % (AUTO) 8 % (2-9); NEUTROPHILS # (AUTO) 6.39 x10^3/uL (1.8-6.8); NEUTROPHILS % (AUTO) 72 % (42-75); PLATELET COUNT 314 x10^3/uL (130-400); RED BLOOD COUNT 3.68 x10^6/uL (3.82-5.3); RED CELL DISTRIBUTION WIDTH 14.5 % (9.6-15.2)
[2018-04-25] MEDS ORDERED: PROMETHAZINE 25 MG/ML, 1ML ONE (22:55)
[2018-04-25] MEDS ORDERED: MORPHINE SULFATE 4 MG/ML, 1ML ONE (22:55)
[2018-04-25 22:59] LABS: ALANINE AMINOTRANSFERASE 59 U/L (12-78); ALBUMIN 3.4 g/dL (3.4-5.0); ANION GAP 10 mmol/L (5-15); CALCIUM 8.3 mg/dL (8.5-10.1); CHLORIDE 96 mmol/L (98-107); CREATININE 5.01 mg/dL (0.55-1.02)
[2018-04-25] MEDS ORDERED: PROMETHAZINE 25 MG/ML, 1ML IM ONE (23:00)
[2018-04-25] MEDS ORDERED: MORPHINE SULFATE 4 MG/ML, 1ML IVPush PRN (23:00)
[2018-04-25 23:01] LABS: ALKALINE PHOSPHATASE 196 U/L (45-117); BILIRUBIN,TOTAL 0.4 mg/dL (0.2-1.0); TOTAL PROTEIN 7.2 g/dL (6.4-8.2)
[2018-04-25] MEDS ORDERED: DIPHENHYDRAMINE 50 MG CAPSULE ONE (23:16)
[2018-04-25] MEDS ORDERED: SODIUM CHLORIDE 0.9% 1,000ML IVBOLUS ONE (23:30)
[2018-04-25] MEDS ORDERED: DIPHENHYDRAMINE 25 MG CAPSULE PO ONE (23:30)
[2018-04-26 01:01] VITALS: BP_DIAS 89
[2018-04-26 01:41] VITALS: BP_SYST 152
== END 2018-04-26 01:44 | disposition home or self-care (01) ==
LOC: ED 23:25
DX: R10.12 Left upper quadrant pain (principal); E78.5 Hyperlipidemia, unspecified; I12.9 Hypertensive chronic kidney disease with stage 1 through stage 4 chronic kidney disease, or unspecified chronic kidney disease; N18.3 Chronic kidney disease, stage 3 (moderate); E11.65 Type 2 diabetes mellitus with hyperglycemia
CPT/HCPCS: 36415; 74022; 80053; 83605; 83690; 85025; 96361; 96372; 96374; 99285; J2550; J7030; Q0163; 36569

== ENCOUNTER 2018-06-05 22:21 | Emergency (ER) | payer MEDICARE, MEDICAID ==
[~2018-06-05] VITALS: Ht 165.1 cm; Wt 83.6 kg
[~2018-06-05 22:21] MED LIST changes: -CITA20TA5 PO; +CITA20TA6 PO; +HYDR-3240 PO; +OXYC-432 PO; -OXYC1TAB9 PO; +POLY17PO5 PO
[2018-06-05] MEDS ORDERED: DIPHENHYDRAMINE 50 MG/ML, 1ML ONE (22:43)
[2018-06-05] MEDS ORDERED: FAMOTIDINE 20 MG/2 ML ONE (22:43)
[2018-06-05] MEDS ORDERED: FAMOTIDINE 20 MG TABLET PO ONE (23:00)
[2018-06-05] MEDS ORDERED: METOCLOPRAMIDE 5 MG/ML, 2ML IVPush ONE (23:00)
[2018-06-05] MEDS ORDERED: DIPHENHYDRAMINE 25 MG CAPSULE PO ONE (23:00)
[2018-06-05] MEDS ORDERED: SODIUM CHLORIDE FLUSH 10ML SYR IVF ONE (23:00)
[2018-06-05 23:13] LABS: MICROSCOPIC INDICATED
[2018-06-05 23:19] LABS: CULTURE INDICATED? NO
[2018-06-05 23:26] LABS: BASOPHILS # (AUTO) 0.07 x10^3/uL (0-0.1); BASOPHILS % (AUTO) 1 % (0-1); EOSINOPHILS # (AUTO) 1.37 x10^3/uL (0-0.4); EOSINOPHILS % (AUTO) 12 % (1-7); LYMPHOCYTES # (AUTO) 2.54 x10^3/uL (1-3.4); LYMPHOCYTES % (AUTO) 21 % (22-44); MD NO; MEAN CORPUSCULAR HEMOGLOBIN 32.2 pg (27.0-34.8); MEAN CORPUSCULAR HGB CONC 33.3 g/dL (32.4-35.8); MEAN CORPUSCULAR VOLUME 96.8 fL (80-100); MONOCYTES # (AUTO) 0.69 x10^3/uL (0.2-0.8); MONOCYTES % (AUTO) 6 % (2-9); NEUTROPHILS # (AUTO) 7.17 x10^3/uL (1.8-6.8); NEUTROPHILS % (AUTO) 61 % (42-75); PLATELET COUNT 254 x10^3/uL (130-400); RED BLOOD COUNT 3.17 x10^6/uL (3.82-5.3); RED CELL DISTRIBUTION WIDTH 13.5 % (9.6-15.2)
[2018-06-05 23:31] LABS: ALANINE AMINOTRANSFERASE 17 U/L (12-78); ALBUMIN 3.4 g/dL (3.4-5.0); ANION GAP 9 mmol/L (5-15); CALCIUM 8.3 mg/dL (8.5-10.1); CHLORIDE 101 mmol/L (98-107); CREATININE 6.17 mg/dL (0.55-1.02)
[2018-06-05] MEDS ORDERED: METOCLOPRAMIDE 5 MG/ML, 2ML ONE (23:31)
[2018-06-05 23:34] LABS: ALKALINE PHOSPHATASE 175 U/L (45-117); BILIRUBIN,TOTAL 0.3 mg/dL (0.2-1.0); TOTAL PROTEIN 7.7 g/dL (6.4-8.2)
[2018-06-05 23:46] VITALS: BP 163/84
== END 2018-06-06 00:19 | disposition home or self-care (01) ==
LOC: ED 22:55
DX: R11.2 Nausea with vomiting, unspecified (principal); R10.9 Unspecified abdominal pain; E78.5 Hyperlipidemia, unspecified; E87.5 Hyperkalemia; E11.22 Type 2 diabetes mellitus with diabetic chronic kidney disease; I12.9 Hypertensive chronic kidney disease with stage 1 through stage 4 chronic kidney disease, or unspecified chronic kidney disease; N18.9 Chronic kidney disease, unspecified; Z99.2 Dependence on renal dialysis; Z90.49 Acquired absence of other specified parts of digestive tract; Z90.710 Acquired absence of both cervix and uterus
CPT/HCPCS: 36415; 80053; 81001; 83690; 85025; 93005; 96374; 99285; J2765

== ENCOUNTER 2018-06-12 23:12 | Emergency (ER) | payer MEDICARE, MEDICAID ==
[~2018-06-12] VITALS: Ht 165.1 cm; Wt 81.0 kg
[2018-06-13] MEDS ORDERED: DIPHENHYDRAMINE 50 MG/ML, 1ML IVPush ONE
[2018-06-13] MEDS ORDERED: PROCHLORPERAZINE 5 MG/ML, 2ML IVPush ONE
[2018-06-13] MEDS ORDERED: BUTALB/APAP/CAFFEINE 50MG/325MG/40MG PO ONE
[2018-06-13 00:01] LABS: BASOPHILS # (AUTO) 0.12 x10^3/uL (0-0.1); BASOPHILS % (AUTO) 1 % (0-1); EOSINOPHILS # (AUTO) 1.33 x10^3/uL (0-0.4); EOSINOPHILS % (AUTO) 15 % (1-7); LYMPHOCYTES # (AUTO) 1.84 x10^3/uL (1-3.4); LYMPHOCYTES % (AUTO) 21 % (22-44); MD NO; MEAN CORPUSCULAR HEMOGLOBIN 33.4 pg (27.0-34.8); MEAN CORPUSCULAR HGB CONC 34.6 g/dL (32.4-35.8); MEAN CORPUSCULAR VOLUME 96.5 fL (80-100); MEAN PLATELET VOLUME 7.9 fL (7.4-10.4); MONOCYTES # (AUTO) 0.54 x10^3/uL (0.2-0.8); MONOCYTES % (AUTO) 6 % (2-9); NEUTROPHILS # (AUTO) 4.88 x10^3/uL (1.8-6.8); NEUTROPHILS % (AUTO) 56 % (42-75); PLATELET COUNT 316 x10^3/uL (130-400); RED BLOOD COUNT 2.63 x10^6/uL (3.82-5.3); RED CELL DISTRIBUTION WIDTH 14.2 % (9.6-15.2)
[2018-06-13] MEDS ORDERED: DIPHENHYDRAMINE 50 MG/ML, 1ML ONE (00:01)
[2018-06-13] MEDS ORDERED: PROCHLORPERAZINE 5 MG/ML, 2ML ONE (00:01)
[2018-06-13] MEDS ORDERED: BUTALBIT/ACETAMIN/CAFF/CODEINE CAPSULE ONE (00:02)
[2018-06-13 00:12] LABS: ALBUMIN 3.3 g/dL (3.4-5.0); ANION GAP 9 mmol/L (5-15); CALCIUM 7.6 mg/dL (8.5-10.1); CHLORIDE 103 mmol/L (98-107); CREATININE 5.94 mg/dL (0.55-1.02)
[2018-06-13 01:04] VITALS: BP 187/95
== END 2018-06-13 01:05 | disposition home or self-care (01) ==
LOC: ED 23:36
DX: G43.009 Migraine without aura, not intractable, without status migrainosus (principal); E11.22 Type 2 diabetes mellitus with diabetic chronic kidney disease; I12.0 Hypertensive chronic kidney disease with stage 5 chronic kidney disease or end stage renal disease; N18.6 End stage renal disease; E11.21 Type 2 diabetes mellitus with diabetic nephropathy; Z99.2 Dependence on renal dialysis; Z88.5 Allergy status to narcotic agent; Z79.82 Long term (current) use of aspirin; Z88.8 Allergy status to other drugs, medicaments and biological substances; Z88.1 Allergy status to other antibiotic agents
CPT/HCPCS: 36415; 80048; 82040; 85025; 96374; 96375; 99284; J0780; J1200

== ENCOUNTER 2018-06-24 09:47 | Inpatient (IN) | payer MEDICARE, MEDICAID ==
[~2018-06-24] VITALS: Ht 165.1 cm; Wt 85.5 kg
[2018-06-24] MEDS ORDERED: LACTATED RINGERS 1,000 ML IV SCH (10:31)
[2018-06-24 10:49] LABS: MICROSCOPIC INDICATED
[2018-06-24] MEDS ORDERED: PLEASE ENTER HEIGHT AND WEIGHT MC SCH (11:00)
[2018-06-24] MEDS ORDERED: OxyconTIN ER 20 MG TAB.ER PO ONE (11:00)
[2018-06-24] MEDS ORDERED: FAMOTIDINE 20 MG TABLET PO ONE (11:00)
[2018-06-24] MEDS ORDERED: INSULIN REGULAR 100 UNITS/ML, 3ML VIAL SQ-INSULIN STA (11:08)
[2018-06-24] MEDS ORDERED: INSULIN SINGLE DOSE, ER SQ-INSULIN ONE (11:13)
[2018-06-24] MEDS ORDERED: SODIUM CHLORIDE 0.9% 1,000 ML IV SCH ×2 (11:20→18:30)
[2018-06-24] MEDS ORDERED: INDIGO CARMINE 0.8%, 5ML ONE (11:22)
[2018-06-24] MEDS ORDERED: THROMBIN 5,000 UNIT VIAL TP ONE (11:22)
[2018-06-24] MEDS ORDERED: BUPIVACAINE/PF-EPI 0.25% 1:200K ONE (11:22)
[2018-06-24 11:31] LABS: CULTURE INDICATED? YES
[2018-06-24 11:33] LABS: INTERNATIONAL NORMALIZED RATIO 0.98 (0.93-1.1); PROTHROMBIN TIME 10.1 Seconds (9.6-11.5)
[2018-06-24 11:34] VITALS: BP 126/82
[2018-06-24 11:42] LABS: BASOPHILS # (AUTO) 0.04 x10^3/uL (0-0.1); BASOPHILS % (AUTO) 1 % (0-1); EOSINOPHILS # (AUTO) 0.99 x10^3/uL (0-0.4); EOSINOPHILS % (AUTO) 12 % (1-7); LYMPHOCYTES # (AUTO) 0.69 x10^3/uL (1-3.4); LYMPHOCYTES % (AUTO) 8 % (22-44); MD NO; MEAN CORPUSCULAR HEMOGLOBIN 33.3 pg (27.0-34.8); MEAN CORPUSCULAR HGB CONC 33.8 g/dL (32.4-35.8); MEAN CORPUSCULAR VOLUME 98.3 fL (80-100); MEAN PLATELET VOLUME 8.4 fL (7.4-10.4); MONOCYTES # (AUTO) 0.53 x10^3/uL (0.2-0.8); MONOCYTES % (AUTO) 6 % (2-9); NEUTROPHILS # (AUTO) 5.97 x10^3/uL (1.8-6.8); NEUTROPHILS % (AUTO) 73 % (42-75); PLATELET COUNT 238 x10^3/uL (130-400); RED BLOOD COUNT 2.93 x10^6/uL (3.82-5.3); RED CELL DISTRIBUTION WIDTH 14.7 % (9.6-15.2)
[2018-06-24] MEDS ORDERED: MIDAZOLAM 1 MG/ML, 2ML ONE (12:04)
[2018-06-24] MEDS ORDERED: FENTANYL PF 250 MCG/5ML ONE (12:04)
[2018-06-24 12:10] LABS: ALBUMIN 3.2 g/dL (3.4-5.0); ANION GAP 12 mmol/L (5-15); CALCIUM 7.3 mg/dL (8.5-10.1); CHLORIDE 97 mmol/L (98-107)
[2018-06-24 12:14] LABS: ALANINE AMINOTRANSFERASE 12 U/L (12-78); ALKALINE PHOSPHATASE 194 U/L (45-117); BILIRUBIN,TOTAL 0.5 mg/dL (0.2-1.0); CREATININE 7.51 mg/dL (0.55-1.02)
[2018-06-24] MEDS ORDERED: CEFAZOLIN 1,000 MG ONE (12:38)
[2018-06-24] MEDS ORDERED: BUPIVACAINE/PF-EPI 0.25% 1:200K INFIL ONE (13:29)
[2018-06-24] MEDS ORDERED: ACETAMINOPHEN 325 MG TABLET PO PRN (15:00)
[2018-06-24] MEDS ORDERED: PROMETHAZINE 25 MG/ML, 1ML IV PRN (15:00)
[2018-06-24] MEDS ORDERED: OXYcodone 5 MG/5 ML ORAL.SOL UDC PO PRN (15:00)
[2018-06-24] MEDS ORDERED: FENTANYL PF 100 MCG/2ML IV PRN (15:00)
[2018-06-24] MEDS ORDERED: hydrALAzine 20 MG/ML, 1ML IV PRN (15:00)
[2018-06-24] MEDS ORDERED: ONDANSETRON 2MG/ML, 2ML IV PRN (15:00)
[2018-06-24] MEDS ORDERED: NEOSTIGMINE 1 MG/ML, 10ML ONE (15:01)
[2018-06-24] MEDS ORDERED: ONDANSETRON 2MG/ML, 2ML ONE (15:01)
[2018-06-24] MEDS ORDERED: PROPOFOL 10 MG/ML, 20ML ONE (15:01)
[2018-06-24] MEDS ORDERED: ROCURONIUM 10MG/ML,5ML ONE (15:01)
[2018-06-24] MEDS ORDERED: GLYCOPYRROLATE 0.4 MG/2 ML, 2ML ONE (15:02)
[2018-06-24] MEDS ORDERED: METOCLOPRAMIDE 5 MG/ML, 2ML ONE (15:02)
[2018-06-24] MEDS ORDERED: DIPHENHYDRAMINE 50 MG/ML, 1ML ONE (15:31)
[2018-06-24] MEDS ORDERED: DIPHENHYDRAMINE 50 MG/ML, 1ML IVPush ONE (16:00)
[2018-06-24] MEDS: HYDROmorphone 1 MG/ML, 1ML IV PRN ×7 (16:15→23:55)
[2018-06-24] MEDS ORDERED: HYDROmorphone 2 MG/ML, 1ML ONE ×3 (16:19→23:53)
[2018-06-24] MEDS ORDERED: LABETALOL 5MG/ML, 20ML ONE (16:24)
[2018-06-24] MEDS ORDERED: METOPROLOL 1 MG/ML, 5ML ONE (16:24)
[2018-06-24] MEDS: LABETALOL 5MG/ML, 20ML IV PRN ×4 (16:26→17:00)
[2018-06-24] MEDS: OXYcodone/APAP 5/325MG TABLET PO PRN (18:34)
[2018-06-24] MEDS: SODIUM CHLORIDE 0.9% 1,000 ML IV SCH (18:34)
[2018-06-24 19:06] LABS: ALBUMIN 2.9 g/dL (3.4-5.0); ANION GAP 13 mmol/L (5-15); CALCIUM 6.9 mg/dL (8.5-10.1); CHLORIDE 101 mmol/L (98-107); CREATININE 7.47 mg/dL (0.55-1.02)
[2018-06-24 19:15] VITALS: BP 172/92
[2018-06-24] MEDS: ATORVASTATIN 20 MG TABLET PO SCH (20:56)
[2018-06-24] MEDS: INSULIN GLARGINE 100 UNITS/ML, PEN SQ-INSULIN SCH (22:10)
[2018-06-25 00:20] VITALS: BP 138/85
[2018-06-25] MEDS: OXYcodone/APAP 5/325MG TABLET PO PRN ×4 (01:54→21:55)
[2018-06-25] MEDS ORDERED: HYDROmorphone 2 MG/ML, 1ML ONE ×6 (02:49→23:29)
[2018-06-25] MEDS: HYDROmorphone 1 MG/ML, 1ML IV PRN ×6 (02:50→23:35)
[2018-06-25 04:15] VITALS: BP 141/84
[2018-06-25 05:48] LABS: ANION GAP 12 mmol/L (5-15); CALCIUM 7.4 mg/dL (8.5-10.1); CHLORIDE 103 mmol/L (98-107); CREATININE 8.02 mg/dL (0.55-1.02)
[2018-06-25] MEDS: INSULIN ASPART 100 UNITS/ML, VIAL SQ-INSULIN SCH ×3 (06:02→16:25)
[2018-06-25] MEDS: SODIUM CHLORIDE 0.9% 1,000 ML IV SCH ×2 (06:02→20:53)
[2018-06-25 06:47] VITALS: BP 144/69
[2018-06-25] MEDS: CHOLECALCIFEROL 1,000 UNIT TABLET PO SCH (08:00)
[2018-06-25] MEDS: AMLODIPINE 5 MG TABLET PO SCH (08:01)
[2018-06-25] MEDS ORDERED: ARANESP 100 MCG/ML **ESRD SQ SCH ×2 (09:00→14:32)
[2018-06-25] MEDS: DIPHENHYDRAMINE 25 MG CAPSULE PO PRN ×2 (12:48→20:54)
[2018-06-25 14:11] VITALS: BP 112/64
[2018-06-25] MEDS ORDERED: ONDANSETRON 2MG/ML, 2ML ONE (14:26)
[2018-06-25] MEDS: ONDANSETRON 2MG/ML, 2ML IVPush PRN (14:28)
[2018-06-25] MEDS: INSULIN LISPRO 100 UNITS/ML, PEN SQ-INSULIN SCH (16:58)
[2018-06-25 19:46] VITALS: BP 102/67
[2018-06-25] MEDS: ATORVASTATIN 20 MG TABLET PO SCH (20:53)
[2018-06-25] MEDS: INSULIN GLARGINE 100 UNITS/ML, PEN SQ-INSULIN SCH (20:54)
[2018-06-26] MEDS ORDERED: HYDROmorphone 2 MG/ML, 1ML ONE ×5 (01:39→21:40)
[2018-06-26] MEDS: HYDROmorphone 1 MG/ML, 1ML IV PRN ×5 (01:43→21:47)
[2018-06-26 01:51] VITALS: BP 103/63
[2018-06-26] MEDS: OXYcodone/APAP 5/325MG TABLET PO PRN ×3 (04:25→18:23)
[2018-06-26 05:50] LABS: BASOPHILS # (AUTO) 0.03 x10^3/uL (0-0.1); BASOPHILS % (AUTO) 0 % (0-1); EOSINOPHILS # (AUTO) 0.84 x10^3/uL (0-0.4); EOSINOPHILS % (AUTO) 12 % (1-7); LYMPHOCYTES # (AUTO) 1.42 x10^3/uL (1-3.4); LYMPHOCYTES % (AUTO) 21 % (22-44); MD NO; MEAN CORPUSCULAR HEMOGLOBIN 33.3 pg (27.0-34.8); MEAN CORPUSCULAR HGB CONC 33.7 g/dL (32.4-35.8); MEAN CORPUSCULAR VOLUME 98.8 fL (80-100); MEAN PLATELET VOLUME 8.3 fL (7.4-10.4); MONOCYTES # (AUTO) 0.81 x10^3/uL (0.2-0.8); MONOCYTES % (AUTO) 12 % (2-9); NEUTROPHILS # (AUTO) 3.65 x10^3/uL (1.8-6.8); NEUTROPHILS % (AUTO) 54 % (42-75); PLATELET COUNT 222 x10^3/uL (130-400); RED BLOOD COUNT 2.53 x10^6/uL (3.82-5.3); RED CELL DISTRIBUTION WIDTH 15.6 % (9.6-15.2)
[2018-06-26 05:57] LABS: ALBUMIN 2.8 g/dL (3.4-5.0); ANION GAP 10 mmol/L (5-15); CALCIUM 7.4 mg/dL (8.5-10.1); CHLORIDE 98 mmol/L (98-107)
[2018-06-26 05:58] LABS: CREATININE 6.14 mg/dL (0.55-1.02)
[2018-06-26] MEDS: SODIUM CHLORIDE 0.9% 1,000 ML IV SCH (06:08)
[2018-06-26] MEDS: INSULIN LISPRO 100 UNITS/ML, PEN SQ-INSULIN SCH ×3 (07:00→16:00)
[2018-06-26] MEDS ORDERED: INSULIN LISPRO 100 UNITS/ML, PEN SQ-INSULIN SCH (07:00)
[2018-06-26 08:27] VITALS: BP 123/75
[2018-06-26] MEDS: CHOLECALCIFEROL 1,000 UNIT TABLET PO SCH (08:55)
[2018-06-26] MEDS: ONDANSETRON 2MG/ML, 2ML IVPush PRN (08:55)
[2018-06-26] MEDS: AMLODIPINE 5 MG TABLET PO SCH (08:55)
[2018-06-26] MEDS: DIPHENHYDRAMINE 25 MG CAPSULE PO PRN (12:08)
[2018-06-26 14:50] VITALS: BP 150/74
[2018-06-26 19:55] VITALS: BP 98/61
[2018-06-26] MEDS: ATORVASTATIN 20 MG TABLET PO SCH (20:32)
[2018-06-26] MEDS: INSULIN GLARGINE 100 UNITS/ML, PEN SQ-INSULIN SCH (21:06)
[2018-06-27 01:26] VITALS: BP 122/70
[2018-06-27] MEDS: OXYcodone/APAP 5/325MG TABLET PO PRN ×4 (01:41→21:16)
[2018-06-27] MEDS ORDERED: HYDROmorphone 2 MG/ML, 1ML ONE (05:00)
[2018-06-27] MEDS: HYDROmorphone 1 MG/ML, 1ML IV PRN (05:04)
[2018-06-27 05:59] LABS: ALBUMIN 2.6 g/dL (3.4-5.0); ANION GAP 10 mmol/L (5-15); CALCIUM 7.5 mg/dL (8.5-10.1); CHLORIDE 104 mmol/L (98-107)
[2018-06-27 06:00] LABS: BASOPHILS # (AUTO) 0.04 x10^3/uL (0-0.1); BASOPHILS % (AUTO) 0 % (0-1); EOSINOPHILS # (AUTO) 0.93 x10^3/uL (0-0.4); EOSINOPHILS % (AUTO) 9 % (1-7); LYMPHOCYTES # (AUTO) 1.27 x10^3/uL (1-3.4); LYMPHOCYTES % (AUTO) 12 % (22-44); MD NO; MEAN CORPUSCULAR HEMOGLOBIN 32.9 pg (27.0-34.8); MEAN CORPUSCULAR HGB CONC 33.2 g/dL (32.4-35.8); MEAN CORPUSCULAR VOLUME 99.2 fL (80-100); MEAN PLATELET VOLUME 8.5 fL (7.4-10.4); MONOCYTES # (AUTO) 0.73 x10^3/uL (0.2-0.8); MONOCYTES % (AUTO) 7 % (2-9); NEUTROPHILS # (AUTO) 8.02 x10^3/uL (1.8-6.8); NEUTROPHILS % (AUTO) 73 % (42-75); PLATELET COUNT 237 x10^3/uL (130-400); RED BLOOD COUNT 2.46 x10^6/uL (3.82-5.3); RED CELL DISTRIBUTION WIDTH 15.4 % (9.6-15.2)
[2018-06-27 06:05] LABS: % IRON SATURATION 13 % (20-55); CREATININE 7.33 mg/dL (0.55-1.02); IRON LEVEL 41 mcg/dL (50-170); TOTAL IRON BINDING CAPACITY 322 mcg/dL (250-450)
[2018-06-27 06:55] VITALS: BP 133/69
[2018-06-27] MEDS: INSULIN LISPRO 100 UNITS/ML, PEN SQ-INSULIN SCH ×3 (07:00→16:00)
[2018-06-27] MEDS: AMLODIPINE 5 MG TABLET PO SCH (07:53)
[2018-06-27] MEDS: CHOLECALCIFEROL 1,000 UNIT TABLET PO SCH (07:53)
[2018-06-27] MEDS: ONDANSETRON 2MG/ML, 2ML IVPush PRN (07:57)
[2018-06-27] MEDS ORDERED: ERGOCALCIFEROL 50,000 UNIT CAPSULE PO SCH (09:30)
[2018-06-27] MEDS ORDERED: DIPHENHYDRAMINE 50 MG/ML, 1ML IVPush ONE (13:30)
[2018-06-27 14:10] VITALS: BP 112/68
[2018-06-27] MEDS ORDERED: CATHFLO-ALTEPLASE 2 MG/2 ML CATHFLUSH ONE ×4 (14:30→17:00)
[2018-06-27] MEDS ORDERED: ONDANSETRON ODT 4 MG PO PRN (16:00)
[2018-06-27] MEDS: IRON SUCROSE COMPLEX 100MG/5ML IV SCH (16:09)
[2018-06-27] MEDS: CALCIUM ACETATE 667 MG CAPSULE PO SCH ×2 (16:57→21:03)
[2018-06-27 19:14] VITALS: BP 143/82
[2018-06-27] MEDS: INSULIN GLARGINE 100 UNITS/ML, PEN SQ-INSULIN SCH (21:00)
[2018-06-27] MEDS: ATORVASTATIN 20 MG TABLET PO SCH (21:03)
[2018-06-27] MEDS: DIPHENHYDRAMINE 25 MG CAPSULE PO PRN (21:16)
[2018-06-28 02:50] VITALS: BP 122/73
[2018-06-28] MEDS: OXYcodone/APAP 5/325MG TABLET PO PRN ×3 (05:23→19:37)
[2018-06-28] MEDS: INSULIN LISPRO 100 UNITS/ML, PEN SQ-INSULIN SCH ×3 (07:00→17:22)
[2018-06-28 08:01] VITALS: BP 126/73
[2018-06-28] MEDS: CALCIUM ACETATE 667 MG CAPSULE PO SCH ×3 (08:30→21:25)
[2018-06-28] MEDS ORDERED: DIPHENHYDRAMINE 50 MG/ML, 1ML ONE (09:04)
[2018-06-28] MEDS: DIPHENHYDRAMINE 50 MG/ML, 1ML IVPush PRN (10:22)
[2018-06-28] MEDS: AMLODIPINE 5 MG TABLET PO SCH (13:57)
[2018-06-28 14:25] VITALS: BP 114/70
[2018-06-28 20:50] VITALS: BP 103/62
[2018-06-28] MEDS: INSULIN GLARGINE 100 UNITS/ML, PEN SQ-INSULIN SCH (21:25)
[2018-06-28] MEDS: ATORVASTATIN 20 MG TABLET PO SCH (21:25)
[2018-06-29 00:43] VITALS: BP 119/74
[2018-06-29] MEDS: OXYcodone/APAP 5/325MG TABLET PO PRN ×3 (03:12→17:27)
[2018-06-29] MEDS: INSULIN LISPRO 100 UNITS/ML, PEN SQ-INSULIN SCH ×3 (07:00→16:00)
[2018-06-29] MEDS: CALCIUM ACETATE 667 MG CAPSULE PO SCH ×3 (09:17→20:36)
[2018-06-29] MEDS: AMLODIPINE 5 MG TABLET PO SCH (09:17)
[2018-06-29 09:22] VITALS: BP 113/71
[2018-06-29] MEDS ORDERED: PROMETHAZINE 25 MG/ML, 1ML IM PRN (10:30)
[2018-06-29] MEDS: PROMETHAZINE 25 MG/ML, 1ML IM PRN ×2 (11:04→20:37)
[2018-06-29] MEDS: DIPHENHYDRAMINE 50 MG/ML, 1ML IVPush PRN (13:29)
[2018-06-29 13:43] LABS: BASOPHILS # (AUTO) 0.37 x10^3/uL (0-0.1); BASOPHILS % (AUTO) 4 % (0-1); EOSINOPHILS # (AUTO) 1.03 x10^3/uL (0-0.4); EOSINOPHILS % (AUTO) 10 % (1-7); LYMPHOCYTES % (AUTO) 13 % (22-44); MD NO; MEAN CORPUSCULAR HEMOGLOBIN 32.2 pg (27.0-34.8); MEAN CORPUSCULAR HGB CONC 32.8 g/dL (32.4-35.8); MEAN PLATELET VOLUME 7.6 fL (7.4-10.4); MONOCYTES # (AUTO) 0.45 x10^3/uL (0.2-0.8); MONOCYTES % (AUTO) 4 % (2-9); NEUTROPHILS % (AUTO) 70 % (42-75); PLATELET COUNT 260 x10^3/uL (130-400); RED BLOOD COUNT 2.35 x10^6/uL (3.82-5.3); RED CELL DISTRIBUTION WIDTH 14.8 % (9.6-15.2)
[2018-06-29 14:05] VITALS: BP 102/55
[2018-06-29] MEDS: IRON SUCROSE COMPLEX 100MG/5ML IV SCH (14:26)
[2018-06-29 19:52] VITALS: BP 100/66
[2018-06-29] MEDS: HYDROmorphone 2MG TABLET PO PRN (20:36)
[2018-06-29] MEDS: ATORVASTATIN 20 MG TABLET PO SCH (20:36)
[2018-06-29] MEDS: INSULIN GLARGINE 100 UNITS/ML, PEN SQ-INSULIN SCH (20:37)
[2018-06-30] MEDS: OXYcodone/APAP 5/325MG TABLET PO PRN ×4 (00:55→22:53)
[2018-06-30 01:02] VITALS: BP 118/60
[2018-06-30] MEDS: HYDROmorphone 2MG TABLET PO PRN ×3 (05:12→20:53)
[2018-06-30 06:58] LABS: CHLORIDE 98 mmol/L (98-107)
[2018-06-30] MEDS: INSULIN LISPRO 100 UNITS/ML, PEN SQ-INSULIN SCH ×3 (07:00→16:47)
[2018-06-30 07:09] LABS: ALANINE AMINOTRANSFERASE 10 U/L (12-78); ALBUMIN 2.7 g/dL (3.4-5.0); ALKALINE PHOSPHATASE 124 U/L (45-117); ANION GAP 6 mmol/L (5-15); BILIRUBIN,TOTAL 0.3 mg/dL (0.2-1.0); CALCIUM 8.2 mg/dL (8.5-10.1); CREATININE 5.12 mg/dL (0.55-1.02); TOTAL PROTEIN 6.6 g/dL (6.4-8.2)
[2018-06-30 07:23] VITALS: BP 120/64
[2018-06-30] MEDS: AMLODIPINE 5 MG TABLET PO SCH (09:33)
[2018-06-30] MEDS: CALCIUM ACETATE 667 MG CAPSULE PO SCH ×3 (09:34→20:53)
[2018-06-30 09:52] LABS: BASOPHILS # (AUTO) 0.06 x10^3/uL (0-0.1); BASOPHILS % (AUTO) 1 % (0-1); EOSINOPHILS # (AUTO) 0.96 x10^3/uL (0-0.4); EOSINOPHILS % (AUTO) 11 % (1-7); LYMPHOCYTES # (AUTO) 1.37 x10^3/uL (1-3.4); LYMPHOCYTES % (AUTO) 16 % (22-44); MD NO; MEAN CORPUSCULAR HEMOGLOBIN 33.8 pg (27.0-34.8); MEAN CORPUSCULAR HGB CONC 33.4 g/dL (32.4-35.8); MEAN CORPUSCULAR VOLUME 101.2 fL (80-100); MEAN PLATELET VOLUME 10.3 fL (7.4-10.4); MONOCYTES # (AUTO) 0.65 x10^3/uL (0.2-0.8); MONOCYTES % (AUTO) 8 % (2-9); NEUTROPHILS # (AUTO) 5.59 x10^3/uL (1.8-6.8); NEUTROPHILS % (AUTO) 65 % (42-75); PLATELET COUNT 251 x10^3/uL (130-400); RED CELL DISTRIBUTION WIDTH 15.2 % (9.6-15.2)
[2018-06-30] MEDS: PROMETHAZINE 25 MG/ML, 1ML IM PRN ×2 (11:49→22:49)
[2018-06-30 14:01] VITALS: BP 123/64
[2018-06-30 20:04] VITALS: BP 102/63
[2018-06-30] MEDS: ATORVASTATIN 20 MG TABLET PO SCH (20:53)
[2018-06-30] MEDS: INSULIN GLARGINE 100 UNITS/ML, PEN SQ-INSULIN SCH (20:53)
[2018-07-01 02:42] VITALS: BP 113/70
[2018-07-01] MEDS: HYDROmorphone 2MG TABLET PO PRN (04:45)
[2018-07-01] MEDS: OXYcodone/APAP 5/325MG TABLET PO PRN ×2 (06:30→14:42)
[2018-07-01] MEDS: INSULIN LISPRO 100 UNITS/ML, PEN SQ-INSULIN SCH ×3 (07:00→16:00)
[2018-07-01 08:00] VITALS: BP 127/71
[2018-07-01] MEDS: AMLODIPINE 5 MG TABLET PO SCH (09:00)
[2018-07-01] MEDS: CALCIUM ACETATE 667 MG CAPSULE PO SCH ×3 (09:00→21:04)
[2018-07-01] MEDS: IRON SUCROSE COMPLEX 100MG/5ML IV SCH (09:30)
[2018-07-01] MEDS: DIPHENHYDRAMINE 50 MG/ML, 1ML IVPush PRN (09:30)
[2018-07-01] MEDS: PROMETHAZINE 25 MG/ML, 1ML IM PRN (12:41)
[2018-07-01 14:00] VITALS: BP 117/71
[2018-07-01] MEDS ORDERED: LIDOCAINE-MPF 2%, 2ML ONE (17:59)
[2018-07-01] MEDS ORDERED: DIPHENHYDRAMINE 50 MG/ML, 1ML ONE (18:05)
[2018-07-01] MEDS ORDERED: FENTANYL PF 100 MCG/2ML ONE (18:05)
[2018-07-01] MEDS ORDERED: MIDAZOLAM 1 MG/ML, 5ML ONE (18:05)
[2018-07-01 20:30] VITALS: BP 103/61
[2018-07-01] MEDS: ATORVASTATIN 20 MG TABLET PO SCH (21:04)
[2018-07-01] MEDS: INSULIN GLARGINE 100 UNITS/ML, PEN SQ-INSULIN SCH (21:05)
[2018-07-02] MEDS: OXYcodone/APAP 5/325MG TABLET PO PRN ×2 (00:21→07:42)
[2018-07-02 00:29] VITALS: BP 116/71
[2018-07-02] MEDS: PROMETHAZINE 25 MG/ML, 1ML IM PRN (04:03)
[2018-07-02] MEDS: INSULIN LISPRO 100 UNITS/ML, PEN SQ-INSULIN SCH ×2 (07:00→11:44)
[2018-07-02 07:31] VITALS: BP 120/70
[2018-07-02] MEDS: CALCIUM ACETATE 667 MG CAPSULE PO SCH (09:02)
[2018-07-02] MEDS: AMLODIPINE 5 MG TABLET PO SCH (09:03)
[2018-07-02] MEDS ORDERED: OXYC-302 PO (10:18)
== END 2018-07-02 12:19 | disposition home health service (06) | DRG 660 ==
LOC: OUT 09:47 → 4NOR 17:33 → OUT 23:19 → 4EST 06-25 18:11
PROVIDERS: ADMIT Urology; ATTEND Urology
PROC: 0TT14ZZ Resection of Left Kidney, Percutaneous Endoscopic Approach (ICD-10-PCS; principal; 2018-06-24 12:30)
PROC: 5A1D70Z Performance of Urinary Filtration, Intermittent, Less than 6 Hours Per Day (ICD-10-PCS; 2018-06-25)
PROC: 5A1D70Z Performance of Urinary Filtration, Intermittent, Less than 6 Hours Per Day (ICD-10-PCS; 2018-06-27)
PROC: 5A1D70Z Performance of Urinary Filtration, Intermittent, Less than 6 Hours Per Day (ICD-10-PCS; 2018-06-28)
PROC: 5A1D70Z Performance of Urinary Filtration, Intermittent, Less than 6 Hours Per Day (ICD-10-PCS; 2018-06-29)
PROC: 02PA33Z Removal of Infusion Device from Heart, Percutaneous Approach (ICD-10-PCS; 2018-07-01)
PROC: 02H633Z Insertion of Infusion Device into Right Atrium, Percutaneous Approach (ICD-10-PCS; 2018-07-01)
PROC: B2141ZZ Fluoroscopy of Right Heart using Low Osmolar Contrast (ICD-10-PCS; 2018-07-01)
PROC: 5A1D70Z Performance of Urinary Filtration, Intermittent, Less than 6 Hours Per Day (ICD-10-PCS; 2018-07-01)
DX: N11.9 Chronic tubulo-interstitial nephritis, unspecified (principal); E44.1 Mild protein-calorie malnutrition; E87.1 Hypo-osmolality and hyponatremia; I12.0 Hypertensive chronic kidney disease with stage 5 chronic kidney disease or end stage renal disease; N18.6 End stage renal disease; E11.22 Type 2 diabetes mellitus with diabetic chronic kidney disease; F32.9 Major depressive disorder, single episode, unspecified; Z16.12 Extended spectrum beta lactamase (ESBL) resistance; G89.29 Other chronic pain; D63.1 Anemia in chronic kidney disease; N25.0 Renal osteodystrophy; E87.5 Hyperkalemia; E83.51 Hypocalcemia; E78.5 Hyperlipidemia, unspecified; Z87.442 Personal history of urinary calculi; Z99.2 Dependence on renal dialysis; Z79.4 Long term (current) use of insulin; Z87.440 Personal history of urinary (tract) infections; Z90.49 Acquired absence of other specified parts of digestive tract; Z83.3 Family history of diabetes mellitus; Z80.9 Family history of malignant neoplasm, unspecified; Z84.1 Family history of disorders of kidney and ureter; Z88.6 Allergy status to analgesic agent; Z88.1 Allergy status to other antibiotic agents; Z88.5 Allergy status to narcotic agent; Z88.8 Allergy status to other drugs, medicaments and biological substances; Z68.31 Body mass index [BMI] 31.0-31.9, adult
CPT/HCPCS: 36415; 36581; 74176; 75984; 80048; 80053; 80069; 81001; 82040; 82306; 82728; 82962; 83540; 83550; 83690; 83970; 84100; 85014; 85018; 85025; 85610; 85730; 86850; 86900; 87086; 88307; 99156; 99157; C1725; C1729; J0690; J0882; J1170; J1756; J1815; J2250; J2405; J2550; J2704; J2710; J2997; J3010; J3490; C1750; C1760; C1769; J1200; J1642; J2765; J7030; Q0163

== ENCOUNTER 2018-07-06 20:18 | Emergency (ER) | payer MEDICARE, MEDICAID ==
[~2018-07-06] VITALS: Ht 165.1 cm; Wt 81.0 kg
[2018-07-06] MEDS ORDERED: SODIUM CHLORIDE FLUSH 10ML SYR IVF ONE (21:30)
[2018-07-06] MEDS ORDERED: PROMETHAZINE 25 MG/ML, 1ML IM ONE (21:30)
[2018-07-06] MEDS ORDERED: SODIUM CHLORIDE 0.9% 1,000ML IVBOLUS ONE (21:30)
[2018-07-06] MEDS ORDERED: HYDROmorphone 1 MG/ML, 1ML IVPush PRN (21:30)
[2018-07-06 21:35] LABS: MEAN CORPUSCULAR HEMOGLOBIN 33.2 pg (27.0-34.8); MEAN CORPUSCULAR HGB CONC 33.3 g/dL (32.4-35.8); MEAN CORPUSCULAR VOLUME 99.8 fL (80-100); MEAN PLATELET VOLUME 7.3 fL (7.4-10.4); PLATELET COUNT 462 x10^3/uL (130-400); RED BLOOD COUNT 3.03 x10^6/uL (3.82-5.3); RED CELL DISTRIBUTION WIDTH 14.7 % (9.6-15.2)
[2018-07-06] MEDS ORDERED: HYDROmorphone 2 MG/ML, 1ML ONE (21:43)
[2018-07-06] MEDS ORDERED: PROMETHAZINE 25 MG/ML, 1ML ONE (21:43)
[2018-07-06 21:48] LABS: ALANINE AMINOTRANSFERASE 11 U/L (12-78); ALBUMIN 3.2 g/dL (3.4-5.0); ANION GAP 6 mmol/L (5-15); CALCIUM 8.5 mg/dL (8.5-10.1); CHLORIDE 98 mmol/L (98-107); CREATININE 3.72 mg/dL (0.55-1.02)
[2018-07-06 21:50] LABS: ALKALINE PHOSPHATASE 154 U/L (45-117); BILIRUBIN,TOTAL 0.2 mg/dL (0.2-1.0); MD YES; TOTAL PROTEIN 7.8 g/dL (6.4-8.2)
[2018-07-06 21:56] LABS: BAND#(MANUAL) 0.12 x10^3/uL; BANDS%(MANUAL) 1 % (0-7); BASOS#(MANUAL) 0.24 x10^3/uL (0-0.1); BASOS% (MANUAL) 2 % (0-1); EOS#(MANUAL) 2.04 x10^3/uL (0.0-0.4); EOS% (MANUAL) 17 % (1-7); LYMPH#(MANUAL) 1.44 x10^3/uL (1-3.4); LYMPHS% (MANUAL) 12 % (22-44); SEG#(MANUAL) 8.16 x10^3/uL (1.8-6.8); SEGS% (MANUAL) 68 % (42-75)
[2018-07-06 21:57] LABS: <PLATELET ESTIMATE> INCREASED; <PLT MORPHOLOGY> NORMAL PLT MORPH; ANISOCYTOSIS 1+
[2018-07-06] MEDS ORDERED: OMNIPAQUE 350 MG/ML, 100ML BOTTLE ONE (22:02)
[2018-07-06 22:50] VITALS: BP 136/75
== END 2018-07-06 22:52 | disposition home or self-care (01) ==
LOC: ED 22:38
DX: R10.84 Generalized abdominal pain (principal); E11.21 Type 2 diabetes mellitus with diabetic nephropathy; G89.29 Other chronic pain; N18.6 End stage renal disease; I12.0 Hypertensive chronic kidney disease with stage 5 chronic kidney disease or end stage renal disease; R11.2 Nausea with vomiting, unspecified; Z90.49 Acquired absence of other specified parts of digestive tract; Z90.710 Acquired absence of both cervix and uterus; Z90.5 Acquired absence of kidney; Z99.2 Dependence on renal dialysis
CPT/HCPCS: 36415; 74177; 80053; 83605; 84145; 85025; 87040; 96361; 96372; 96374; 99285; J1170; J2550; J7030; Q9967

== ENCOUNTER 2018-07-29 10:37 | Observation (INO) | payer MEDICARE, MEDICAID ==
[~2018-07-29] VITALS: Ht 165.1 cm; Wt 86.9 kg
[~2018-07-29 10:37] MED LIST changes: -AMLO10TA2 PO; +AMLO10TA6 PO; -AMLO5TAB2 PO; +AMLO5TAB7 PO
[2018-07-29] MEDS ORDERED: PROMETHAZINE 25 MG/ML, 1ML IM ONE (11:30)
[2018-07-29] MEDS ORDERED: hydrALAzine 20 MG/ML, 1ML IV ONE (11:30)
[2018-07-29] MEDS ORDERED: hydrALAzine 20 MG/ML, 1ML ONE (11:34)
[2018-07-29 11:44] LABS: MICROSCOPIC AUTO
[2018-07-29 11:47] LABS: CULTURE INDICATED? NO
[2018-07-29] MEDS ORDERED: HYDROmorphone 2 MG/ML, 1ML ONE ×3 (11:55→20:22)
[2018-07-29] MEDS ORDERED: METOCLOPRAMIDE 5 MG/ML, 2ML ONE (11:55)
[2018-07-29] MEDS ORDERED: METOCLOPRAMIDE 5 MG/ML, 2ML IVPush ONE (12:00)
[2018-07-29 12:25] LABS: BASOPHILS # (AUTO) 0.15 x10^3/uL (0-0.1); BASOPHILS % (AUTO) 2 % (0-1); EOSINOPHILS % (AUTO) 6 % (1-7); LYMPHOCYTES # (AUTO) 1.17 x10^3/uL (1-3.4); LYMPHOCYTES % (AUTO) 13 % (22-44); MD NO; MEAN CORPUSCULAR HEMOGLOBIN 32.1 pg (27.0-34.8); MEAN CORPUSCULAR HGB CONC 33.5 g/dL (32.4-35.8); MEAN CORPUSCULAR VOLUME 95.8 fL (80-100); MEAN PLATELET VOLUME 8.3 fL (7.4-10.4); MONOCYTES % (AUTO) 4 % (2-9); NEUTROPHILS # (AUTO) 6.67 x10^3/uL (1.8-6.8); NEUTROPHILS % (AUTO) 76 % (42-75); PLATELET COUNT 257 x10^3/uL (130-400); RED BLOOD COUNT 3.82 x10^6/uL (3.82-5.3); RED CELL DISTRIBUTION WIDTH 14.3 % (9.6-15.2)
[2018-07-29 12:37] LABS: ALANINE AMINOTRANSFERASE 11 U/L (12-78); ALBUMIN 3.2 g/dL (3.4-5.0); ANION GAP 11 mmol/L (5-15); CALCIUM 8.6 mg/dL (8.5-10.1); CHLORIDE 101 mmol/L (98-107); CREATININE 7.71 mg/dL (0.55-1.02)
[2018-07-29 12:40] LABS: ALKALINE PHOSPHATASE 211 U/L (45-117); BILIRUBIN,TOTAL 0.2 mg/dL (0.2-1.0); TOTAL PROTEIN 7.5 g/dL (6.4-8.2)
[2018-07-29] MEDS: HYDROmorphone 2 MG/ML, 1ML IVPush PRN ×2 (13:58→15:32)
[2018-07-29] MEDS ORDERED: LABETALOL 5MG/ML, 20ML IVPush PRN (14:30)
[2018-07-29] MEDS ORDERED: DOCUSATE 100 MG CAPSULE PO PRN (14:30)
[2018-07-29] MEDS ORDERED: ACETAMINOPHEN 325 MG TABLET PO PRN (14:30)
[2018-07-29] MEDS ORDERED: POLYETHYLENE GLYCOL 17 GM PACKET PO PRN (14:30)
[2018-07-29] MEDS ORDERED: ACETAMINOPHEN 325 MG TABLET ONE (14:41)
[2018-07-29] MEDS ORDERED: HEPARIN 5,000 UNITS/ML, 1ML ONE (14:41)
[2018-07-29] MEDS: HEPARIN 5,000 UNITS/ML, 1ML SQ SCH ×2 (14:44→22:32)
[2018-07-29] MEDS ORDERED: GLUCAGON 1 MG IM PRN (15:00)
[2018-07-29] MEDS ORDERED: DEXTROSE 4 GM TAB.CHEW PO PRN (15:00)
[2018-07-29] MEDS ORDERED: DEXTROSE 50%, 50ML SYRINGE IVPush PRN (15:00)
[2018-07-29] MEDS ORDERED: DIPHENHYDRAMINE 25 MG CAPSULE PO SCH (15:00)
[2018-07-29] MEDS ORDERED: DIPHENHYDRAMINE 25 MG CAPSULE ONE (15:01)
[2018-07-29] MEDS ORDERED: INSULIN LISPRO 100 UNITS/ML, PEN SQ-INSULIN SCH (16:00)
[2018-07-29 17:01] LABS: INTERNATIONAL NORMALIZED RATIO 0.93 (0.93-1.1); PROTHROMBIN TIME 9.7 Seconds (9.6-11.5)
[2018-07-29] MEDS ORDERED: INSULIN LISPRO 100 UNITS/ML, PEN SQ-INSULIN ONE (17:30)
[2018-07-29 19:13] VITALS: BP 162/90
[2018-07-29] MEDS ORDERED: PROMETHAZINE 25 MG/ML, 1ML IM PRN (19:30)
[2018-07-29] MEDS ORDERED: HYDROmorphone 1 MG/ML, 1ML IV ONE (19:30)
[2018-07-29] MEDS: SODIUM CHLORIDE FLUSH 10ML SYR IVF SCH (20:54)
[2018-07-29] MEDS ORDERED: ATORVASTATIN 40 MG TABLET PO SCH (21:00)
[2018-07-29] MEDS ORDERED: INSULIN GLARGINE 100 UNITS/ML, PEN SQ-INSULIN SCH (21:00)
[2018-07-29] MEDS: INSULIN LISPRO 100 UNITS/ML, PEN SQ-INSULIN SCH (22:31)
[2018-07-29] MEDS: DIPHENHYDRAMINE 50 MG/ML, 1ML IVPush PRN (22:32)
[2018-07-29] MEDS: OXYcodone IR 5MG TABLET PO PRN (22:38)
[2018-07-30] MEDS: DIPHENHYDRAMINE 50 MG/ML, 1ML IVPush PRN ×4 (02:40→17:42)
[2018-07-30 02:41] VITALS: BP 159/81
[2018-07-30] MEDS: OXYcodone IR 5MG TABLET PO PRN ×3 (02:41→17:41)
[2018-07-30 04:37] LABS: BASOPHILS # (AUTO) 0.12 x10^3/uL (0-0.1); BASOPHILS % (AUTO) 1 % (0-1); EOSINOPHILS # (AUTO) 0.87 x10^3/uL (0-0.4); EOSINOPHILS % (AUTO) 10 % (1-7); LYMPHOCYTES # (AUTO) 1.98 x10^3/uL (1-3.4); LYMPHOCYTES % (AUTO) 22 % (22-44); MD NO; MEAN CORPUSCULAR HEMOGLOBIN 32.7 pg (27.0-34.8); MEAN CORPUSCULAR HGB CONC 33.6 g/dL (32.4-35.8); MEAN CORPUSCULAR VOLUME 97.3 fL (80-100); MEAN PLATELET VOLUME 8.6 fL (7.4-10.4); MONOCYTES # (AUTO) 0.52 x10^3/uL (0.2-0.8); MONOCYTES % (AUTO) 6 % (2-9); NEUTROPHILS # (AUTO) 5.63 x10^3/uL (1.8-6.8); NEUTROPHILS % (AUTO) 62 % (42-75); PLATELET COUNT 289 x10^3/uL (130-400); RED BLOOD COUNT 3.63 x10^6/uL (3.82-5.3); RED CELL DISTRIBUTION WIDTH 14.5 % (9.6-15.2)
[2018-07-30 04:41] LABS: ANION GAP 12 mmol/L (5-15); CHLORIDE 104 mmol/L (98-107)
[2018-07-30 04:55] LABS: CALCIUM 8.3 mg/dL (8.5-10.1); CREATININE 8.26 mg/dL (0.55-1.02)
[2018-07-30 06:03] LABS: CALCIUM 8.6 mg/dL (8.5-10.1)
[2018-07-30] MEDS: HEPARIN 5,000 UNITS/ML, 1ML SQ SCH ×2 (06:17→17:41)
[2018-07-30] MEDS: INSULIN LISPRO 100 UNITS/ML, PEN SQ-INSULIN SCH ×3 (07:47→17:41)
[2018-07-30 07:58] VITALS: BP 164/87
[2018-07-30] MEDS ORDERED: AMLODIPINE 10 MG TAB PO SCH (09:00)
[2018-07-30] MEDS ORDERED: CITALOPRAM 20 MG TABLET PO SCH (09:00)
[2018-07-30] MEDS ORDERED: VALP250C59 PO (11:02)
[2018-07-30] MEDS ORDERED: GABA300C10 PO (11:05)
[2018-07-30] MEDS ORDERED: CYCL5TAB PO (11:05)
[2018-07-30] MEDS ORDERED: SEVELAMER HCL 800MG TABLET PO SCH (12:00)
[2018-07-30] MEDS: SODIUM CHLORIDE FLUSH 10ML SYR IVF SCH (12:42)
== END 2018-07-30 19:59 | disposition home or self-care (01) ==
LOC: ED 11:03 → EDIP 13:34 → INTOOBSV 13:34 → 4WST 18:00
PROVIDERS: ADMIT Family Medicine; ATTEND Family Medicine
DX: I12.0 Hypertensive chronic kidney disease with stage 5 chronic kidney disease or end stage renal disease (principal); N18.6 End stage renal disease; G81.94 Hemiplegia, unspecified affecting left nondominant side; E44.1 Mild protein-calorie malnutrition; Z99.2 Dependence on renal dialysis; D63.1 Anemia in chronic kidney disease; E11.21 Type 2 diabetes mellitus with diabetic nephropathy; E11.22 Type 2 diabetes mellitus with diabetic chronic kidney disease; E78.5 Hyperlipidemia, unspecified; F32.9 Major depressive disorder, single episode, unspecified; E87.1 Hypo-osmolality and hyponatremia; I16.0 Hypertensive urgency; Z79.4 Long term (current) use of insulin; Z79.899 Other long term (current) drug therapy; Z87.440 Personal history of urinary (tract) infections; Z83.3 Family history of diabetes mellitus; Z87.442 Personal history of urinary calculi
CPT/HCPCS: 36415; 70450; 70551; 71045; 80048; 80053; 81001; 82306; 82310; 82962; 83970; 84100; 84443; 85025; 85610; 92610; 93005; 93306; 93880; 93971; 96372; 96374; 96375; 96376; 99285; G0378; G8978; G8979; G8980; J1170; J1200; J1644; J1815; J2765; Q0163

== ENCOUNTER 2018-10-03 12:46 | Inpatient (IN) | payer MEDICARE, MEDICAID ==
[~2018-10-03] VITALS: Ht 165.1 cm; Wt 82.0 kg
[~2018-10-03 12:46] MED LIST changes: +CYCL5TAB PO; +GABA300C10 PO; +VALP250C59 PO
[2018-10-03] MEDS ORDERED: SODIUM CHLORIDE FLUSH 10ML SYR IVF ONE (14:00)
[2018-10-03] MEDS ORDERED: LIDOCAINE/PF 1%, 30ML ONE (15:21)
[2018-10-03] MEDS ORDERED: FENTANYL PF 100 MCG/2ML ONE (15:46)
[2018-10-03] MEDS ORDERED: NALOXONE 1 MG/ML, 2ML ONE (15:46)
[2018-10-03 15:53] LABS: BASOPHILS # (AUTO) 0.08 x10^3/uL (0-0.1); BASOPHILS % (AUTO) 1 % (0-1); EOSINOPHILS # (AUTO) 0.53 x10^3/uL (0-0.4); EOSINOPHILS % (AUTO) 7 % (1-7); LYMPHOCYTES # (AUTO) 1.31 x10^3/uL (1-3.4); LYMPHOCYTES % (AUTO) 18 % (22-44); MD NO; MEAN CORPUSCULAR HGB CONC 32.8 g/dL (32.4-35.8); MEAN CORPUSCULAR VOLUME 97.7 fL (80-100); MEAN PLATELET VOLUME 8.1 fL (7.4-10.4); MONOCYTES # (AUTO) 0.44 x10^3/uL (0.2-0.8); MONOCYTES % (AUTO) 6 % (2-9); NEUTROPHILS # (AUTO) 4.88 x10^3/uL (1.8-6.8); NEUTROPHILS % (AUTO) 67 % (42-75); PLATELET COUNT 249 x10^3/uL (130-400); RED CELL DISTRIBUTION WIDTH 16.4 % (9.6-15.2)
[2018-10-03 16:03] LABS: ALBUMIN 2.8 g/dL (3.4-5.0); ANION GAP 12 mmol/L (5-15); CALCIUM 8.1 mg/dL (8.5-10.1); CHLORIDE 104 mmol/L (98-107); CREATININE 7.74 mg/dL (0.55-1.02)
[2018-10-03 16:06] LABS: INTERNATIONAL NORMALIZED RATIO 0.94 (0.93-1.1)
[2018-10-03 18:17] VITALS: BP 164/82
[2018-10-03] MEDS ORDERED: DIPHENHYDRAMINE 50 MG/ML, 1ML IVPush PRN ×2 (19:30→21:00)
[2018-10-03 19:32] VITALS: BP 150/82
[2018-10-03] MEDS ORDERED: DOCUSATE 100 MG CAPSULE PO PRN (21:00)
[2018-10-03] MEDS ORDERED: DEXTROSE 4 GM TAB.CHEW PO PRN (21:00)
[2018-10-03] MEDS ORDERED: GLUCAGON 1 MG IM PRN (21:00)
[2018-10-03] MEDS ORDERED: LABETALOL 5MG/ML, 20ML IVPush PRN (21:00)
[2018-10-03] MEDS: INSULIN LISPRO 100 UNITS/ML, PEN SQ-INSULIN SCH (21:00)
[2018-10-03] MEDS ORDERED: ATORVASTATIN 40 MG TABLET PO SCH (21:00)
[2018-10-03] MEDS ORDERED: ACETAMINOPHEN 325 MG TABLET PO PRN (21:00)
[2018-10-03] MEDS ORDERED: DEXTROSE 50%, 50ML SYRINGE IVPush PRN (21:00)
[2018-10-03] MEDS ORDERED: INSULIN GLARGINE 100 UNITS/ML, PEN SQ-INSULIN SCH (21:00)
[2018-10-03] MEDS: morphine SULFATE 10 MG/ML, 1ML IVPush PRN ×2 (21:28→22:14)
[2018-10-03] MEDS: HEPARIN 5,000 UNITS/ML, 1ML SQ SCH (22:14)
[2018-10-03] MEDS: SODIUM CHLORIDE FLUSH 10ML SYR IVF SCH (22:15)
[2018-10-03] MEDS: AMLODIPINE 10 MG TAB PO SCH (22:15)
[2018-10-03] MEDS: GABAPENTIN 300 MG CAPSULE PO SCH (22:15)
[2018-10-04 02:58] VITALS: BP 121/51
[2018-10-04] MEDS: morphine SULFATE 10 MG/ML, 1ML IVPush PRN ×2 (03:03→08:38)
[2018-10-04] MEDS: HEPARIN 5,000 UNITS/ML, 1ML SQ SCH ×2 (04:39→13:00)
[2018-10-04 05:45] LABS: BASOPHILS # (AUTO) 0.21 x10^3/uL (0-0.1); BASOPHILS % (AUTO) 2 % (0-1); EOSINOPHILS # (AUTO) 0.36 x10^3/uL (0-0.4); EOSINOPHILS % (AUTO) 4 % (1-7); LYMPHOCYTES # (AUTO) 1.19 x10^3/uL (1-3.4); LYMPHOCYTES % (AUTO) 13 % (22-44); MD NO; MEAN CORPUSCULAR HEMOGLOBIN 32.5 pg (27.0-34.8); MEAN CORPUSCULAR HGB CONC 33.1 g/dL (32.4-35.8); MEAN CORPUSCULAR VOLUME 98.2 fL (80-100); MEAN PLATELET VOLUME 7.9 fL (7.4-10.4); MONOCYTES # (AUTO) 0.34 x10^3/uL (0.2-0.8); MONOCYTES % (AUTO) 4 % (2-9); NEUTROPHILS # (AUTO) 6.81 x10^3/uL (1.8-6.8); NEUTROPHILS % (AUTO) 76 % (42-75); PLATELET COUNT 252 x10^3/uL (130-400); RED CELL DISTRIBUTION WIDTH 16.3 % (9.6-15.2)
[2018-10-04 05:55] LABS: HEMOGLOBIN A1C 9.3 % (4.2-6.3)
[2018-10-04 06:03] LABS: ALANINE AMINOTRANSFERASE 14 U/L (12-78); ANION GAP 8 mmol/L (5-15); CALCIUM 8.7 mg/dL (8.5-10.1); CHLORIDE 105 mmol/L (98-107); CREATININE 5.53 mg/dL (0.55-1.02)
[2018-10-04 06:05] LABS: ALKALINE PHOSPHATASE 125 U/L (45-117); BILIRUBIN,TOTAL 0.3 mg/dL (0.2-1.0); TOTAL PROTEIN 7.4 g/dL (6.4-8.2)
[2018-10-04] MEDS: INSULIN LISPRO 100 UNITS/ML, PEN SQ-INSULIN SCH ×2 (07:00→11:00)
[2018-10-04] MEDS: GABAPENTIN 300 MG CAPSULE PO SCH (08:14)
[2018-10-04] MEDS: AMLODIPINE 10 MG TAB PO SCH (08:14)
[2018-10-04 08:16] VITALS: BP 118/67
[2018-10-04] MEDS: SODIUM CHLORIDE FLUSH 10ML SYR IVF SCH (08:38)
[2018-10-04] MEDS ORDERED: OXYcodone/APAP 5/325MG TABLET PO PRN (10:30)
[2018-10-04] MEDS ORDERED: DIPHENHYDRAMINE 25 MG CAPSULE PO ONE (10:30)
== END 2018-10-04 15:35 | disposition home or self-care (01) | DRG 286 ==
LOC: ED 14:37 → EDIP 16:53 → 4WST 18:08
PROVIDERS: ADMIT Family Medicine; ATTEND Family Medicine
PROC: B2141ZZ Fluoroscopy of Right Heart using Low Osmolar Contrast (ICD-10-PCS; principal; 2018-10-03)
PROC: 0JPT3XZ Removal of Tunneled Vascular Access Device from Trunk Subcutaneous Tissue and Fascia, Percutaneous Approach (ICD-10-PCS; 2018-10-03)
PROC: 0JH63XZ Insertion of Tunneled Vascular Access Device into Chest Subcutaneous Tissue and Fascia, Percutaneous Approach (ICD-10-PCS; 2018-10-03)
PROC: 02PA33Z Removal of Infusion Device from Heart, Percutaneous Approach (ICD-10-PCS; 2018-10-03)
PROC: 02H633Z Insertion of Infusion Device into Right Atrium, Percutaneous Approach (ICD-10-PCS; 2018-10-03)
PROC: 5A1D70Z Performance of Urinary Filtration, Intermittent, Less than 6 Hours Per Day (ICD-10-PCS; 2018-10-03)
DX: T82.41XA Breakdown (mechanical) of vascular dialysis catheter, initial encounter (principal); N18.6 End stage renal disease; I12.0 Hypertensive chronic kidney disease with stage 5 chronic kidney disease or end stage renal disease; N20.0 Calculus of kidney; D63.1 Anemia in chronic kidney disease; E11.22 Type 2 diabetes mellitus with diabetic chronic kidney disease; E78.5 Hyperlipidemia, unspecified; E88.89 Other specified metabolic disorders; F32.9 Major depressive disorder, single episode, unspecified; Z79.4 Long term (current) use of insulin; Z83.3 Family history of diabetes mellitus; Z87.442 Personal history of urinary calculi; Z90.49 Acquired absence of other specified parts of digestive tract; Z90.5 Acquired absence of kidney; Z90.710 Acquired absence of both cervix and uterus; Z99.2 Dependence on renal dialysis; M89.9 Disorder of bone, unspecified; D25.9 Leiomyoma of uterus, unspecified; Z88.8 Allergy status to other drugs, medicaments and biological substances; Y83.2 Surgical operation with anastomosis, bypass or graft as the cause of abnormal reaction of the patient, or of later complication, without mention of misadventure at the time of the procedure; Z88.5 Allergy status to narcotic agent; Z88.1 Allergy status to other antibiotic agents; Y92.89 Other specified places as the place of occurrence of the external cause
CPT/HCPCS: 36415; 36558; 71045; 75984; 80048; 80053; 82040; 82962; 83036; 83735; 84100; 85025; 85610; 86704; 86706; 86803; 87340; 93005; 99285; G0378; J1644; J3010; J3490; C1750; C1769; J1200; J1642; J1815; J2270; J2310; Q0163

== ENCOUNTER 2018-11-14 16:39 | Observation (INO) | payer MEDICARE, MEDICAID ==
[~2018-11-14] VITALS: Ht 157.5 cm; Wt 82.0 kg
[~2018-11-14 16:39] MED LIST changes: +AMLO-150 PO; -AMLO5TAB7 PO; +ATOR20TA37 PO; -ATOR20TA9 PO
[2018-11-14 17:52] LABS: ALANINE AMINOTRANSFERASE 10 U/L (12-78); ALBUMIN 3.2 g/dL (3.4-5.0); ANION GAP 14 mmol/L (5-15); CALCIUM 9.3 mg/dL (8.5-10.1); CHLORIDE 105 mmol/L (98-107); CREATININE 8.64 mg/dL (0.55-1.02)
[2018-11-14 17:53] LABS: ALKALINE PHOSPHATASE 155 U/L (45-117); BILIRUBIN,TOTAL 0.3 mg/dL (0.2-1.0); TOTAL PROTEIN 7.8 g/dL (6.4-8.2)
[2018-11-14 18:13] LABS: MEAN CORPUSCULAR HGB CONC 33.5 g/dL (32.4-35.8); MEAN CORPUSCULAR VOLUME 95.5 fL (80-100); RED BLOOD COUNT 3.52 x10^6/uL (3.82-5.3); RED CELL DISTRIBUTION WIDTH 14.3 % (9.6-15.2)
[2018-11-14 18:16] LABS: PLATELET COUNT 241 x10^3/uL (130-400)
[2018-11-14 18:28] LABS: MD YES
[2018-11-14 18:30] LABS: BAND#(MANUAL) 0.09 x10^3/uL; BANDS%(MANUAL) 1 % (0-7); BASOS#(MANUAL) 0.28 x10^3/uL (0-0.1); BASOS% (MANUAL) 3 % (0-1); EOS#(MANUAL) 0.83 x10^3/uL (0.0-0.4); EOS% (MANUAL) 9 % (1-7); LYMPH#(MANUAL) 2.48 x10^3/uL (1-3.4); LYMPHS% (MANUAL) 27 % (22-44); METAMYELOCYTES# (MANUAL) 0.09 x10^3/uL (0-0); METAMYELOCYTES% (MANUAL) 1 % (0-1); MONOS#(MANUAL) 0.09 x10^3/uL (0.3-2.7); MONOS% (MANUAL) 1 % (2-9); SEG#(MANUAL) 5.34 x10^3/uL (1.8-6.8); SEGS% (MANUAL) 58 % (42-75)
[2018-11-14 18:32] LABS: <PLATELET ESTIMATE> ADEQUATE; <PLT MORPHOLOGY> NORMAL PLT MORPH; <RBC MORPHOLOGY> NORMAL
--- NOTE | 2018-11-14 18:52 | NUR ---
Pt ambulatory to rm 10 from nav
[2018-11-14] MEDS ORDERED: HYDROmorphone 1 MG/ML, 1ML IM ONE (19:30)
[2018-11-14] MEDS ORDERED: INSULIN REGULAR 100 UNITS/ML, 3ML VIAL IVPush ONE (20:00)
[2018-11-14] MEDS ORDERED: DEXTROSE 50%, 50ML SYRINGE IVPush ONE (20:00)
[2018-11-14] MEDS ORDERED: SODIUM POLY SULFONATE UDC 15 GM/60 ML PO ONE (20:00)
[2018-11-14 20:35] LABS: MICROSCOPIC INDICATED
--- NOTE | 2018-11-14 20:41 | NUR ---
REPORT CALLED TO FLOOR
[2018-11-14 20:46] LABS: CULTURE INDICATED? NO
[2018-11-14] MEDS ORDERED: HYDROmorphone 2 MG/ML, 1ML IM PRN (21:00)
--- NOTE | 2018-11-14 21:00 | NUR ---
IV PLACED AND PT MEDICATED ORDERED.
[2018-11-14] MEDS ORDERED: DEXTROSE 50%, 50ML SYRINGE ONE (21:06)
[2018-11-14] MEDS ORDERED: HYDROmorphone 2 MG/ML, 1ML ONE (21:07)
[2018-11-14] MEDS ORDERED: INSULIN REGULAR 100 UNITS/ML, 3ML VIAL ONE (21:08)
[2018-11-14] MEDS ORDERED: hydrALAzine 20 MG/ML, 1ML IVPush PRN (21:30)
[2018-11-14] MEDS ORDERED: ACETAMINOPHEN 325 MG TABLET PO PRN (21:30)
[2018-11-14 22:54] VITALS: BP 152/85
[2018-11-14] MEDS ORDERED: HYDROmorphone 2 MG/ML, 1ML IV PRN (23:30)
[2018-11-14] MEDS ORDERED: DIPHENHYDRAMINE 25 MG CAPSULE PO PRN (23:30)
[2018-11-15] MEDS: OXYcodone IR 5MG TABLET PO PRN ×3 (00:11→09:16)
[2018-11-15] MEDS ORDERED: ATORVASTATIN 40 MG TABLET PO SCH (00:30)
[2018-11-15] MEDS ORDERED: INSULIN GLARGINE 100 UNITS/ML, PEN SQ-INSULIN SCH (00:30)
[2018-11-15] MEDS: INSULIN LISPRO 100 UNITS/ML, PEN SQ-INSULIN SCH ×3 (00:30→11:00)
[2018-11-15] MEDS ORDERED: CYCLOBENZAPRINE 10 MG TABLET PO PRN (01:00)
[2018-11-15 03:38] VITALS: BP 179/80
[2018-11-15] MEDS ORDERED: GABAPENTIN 300 MG CAPSULE PO SCH (09:00)
[2018-11-15] MEDS ORDERED: AMLODIPINE 10 MG TAB PO SCH (09:00)
[2018-11-15 09:59] VITALS: BP 178/96
[2018-11-15] MEDS ORDERED: DIPHENHYDRAMINE 50 MG/ML, 1ML IVPush ONE (10:30)
[2018-11-15 10:48] LABS: BASOPHILS # (AUTO) 0.13 x10^3/uL (0-0.1); BASOPHILS % (AUTO) 1 % (0-1); EOSINOPHILS # (AUTO) 0.72 x10^3/uL (0-0.4); EOSINOPHILS % (AUTO) 6 % (1-7); LYMPHOCYTES # (AUTO) 2.46 x10^3/uL (1-3.4); LYMPHOCYTES % (AUTO) 22 % (22-44); MD NO; MEAN CORPUSCULAR HEMOGLOBIN 31.5 pg (27.0-34.8); MEAN CORPUSCULAR HGB CONC 32.9 g/dL (32.4-35.8); MEAN CORPUSCULAR VOLUME 95.7 fL (80-100); MEAN PLATELET VOLUME 8.2 fL (7.4-10.4); MONOCYTES # (AUTO) 0.55 x10^3/uL (0.2-0.8); MONOCYTES % (AUTO) 5 % (2-9); NEUTROPHILS # (AUTO) 7.29 x10^3/uL (1.8-6.8); NEUTROPHILS % (AUTO) 65 % (42-75); PLATELET COUNT 331 x10^3/uL (130-400); RED BLOOD COUNT 3.77 x10^6/uL (3.82-5.3); RED CELL DISTRIBUTION WIDTH 14.7 % (9.6-15.2)
[2018-11-15 10:57] LABS: ANION GAP 17 mmol/L (5-15); CALCIUM 9.5 mg/dL (8.5-10.1); CHLORIDE 107 mmol/L (98-107)
[2018-11-15 11:00] LABS: CREATININE 9.42 mg/dL (0.55-1.02)
[2018-11-15] MEDS ORDERED: FENTANYL PF 100 MCG/2ML ONE (11:10)
[2018-11-15] MEDS ORDERED: MIDAZOLAM 1 MG/ML, 5ML ONE (11:10)
[2018-11-15] MEDS ORDERED: DIPHENHYDRAMINE 50 MG/ML, 1ML ONE (12:48)
[2018-11-15 13:41] VITALS: BP 150/85
[2018-11-15] MEDS ORDERED: LIDO700A20 TD (15:11)
[2018-11-15 15:53] VITALS: BP 145/80
== END 2018-11-15 16:56 | disposition home or self-care (01) ==
LOC: ED 20:07 → EDIP 20:10 → 4WST 21:53
PROVIDERS: ADMIT Family Medicine; ATTEND Family Medicine
DX: T82.41XA Breakdown (mechanical) of vascular dialysis catheter, initial encounter (principal); E87.5 Hyperkalemia; E11.22 Type 2 diabetes mellitus with diabetic chronic kidney disease; E44.1 Mild protein-calorie malnutrition; I12.0 Hypertensive chronic kidney disease with stage 5 chronic kidney disease or end stage renal disease; F33.9 Major depressive disorder, recurrent, unspecified; N18.6 End stage renal disease; Z79.4 Long term (current) use of insulin; Z99.2 Dependence on renal dialysis; Y83.8 Other surgical procedures as the cause of abnormal reaction of the patient, or of later complication, without mention of misadventure at the time of the procedure; Y71.2 Prosthetic and other implants, materials and accessory cardiovascular devices associated with adverse incidents
CPT/HCPCS: 36415; 36581; 75984; 80048; 80053; 81001; 82962; 84100; 85025; 93005; 96372; 96374; 96375; 99156; 99157; 99284; C1750; G0378; J1170; J1200; J1642; J2250; J3010; J1815

== ENCOUNTER 2019-01-04 22:32 | Emergency (ER) | payer MEDICARE, MEDICAID ==
[~2019-01-04] VITALS: Ht 165.1 cm; Wt 80.0 kg
[~2019-01-04 22:32] MED LIST changes: -AMLO10TA6 PO; +AMLO10TA8 PO; +LIDO700A20 TD
[2019-01-04 23:09] LABS: BASOPHILS # (AUTO) 0.06 x10^3/uL (0-0.1); BASOPHILS % (AUTO) 1 % (0-1); EOSINOPHILS # (AUTO) 0.64 x10^3/uL (0-0.4); EOSINOPHILS % (AUTO) 5 % (1-7); LYMPHOCYTES # (AUTO) 1.75 x10^3/uL (1-3.4); LYMPHOCYTES % (AUTO) 13 % (22-44); MD NO; MEAN CORPUSCULAR HEMOGLOBIN 31.8 pg (27.0-34.8); MEAN CORPUSCULAR HGB CONC 32.5 g/dL (32.4-35.8); MEAN PLATELET VOLUME 8.1 fL (7.4-10.4); MONOCYTES # (AUTO) 0.63 x10^3/uL (0.2-0.8); MONOCYTES % (AUTO) 5 % (2-9); NEUTROPHILS # (AUTO) 9.99 x10^3/uL (1.8-6.8); NEUTROPHILS % (AUTO) 76 % (42-75); PLATELET COUNT 332 x10^3/uL (130-400); RED BLOOD COUNT 3.77 x10^6/uL (3.82-5.3); RED CELL DISTRIBUTION WIDTH 16.2 % (9.6-15.2)
[2019-01-04 23:20] LABS: ALBUMIN 3.6 g/dL (3.4-5.0); ANION GAP 10 mmol/L (5-15); CALCIUM 9.4 mg/dL (8.5-10.1); CHLORIDE 99 mmol/L (98-107); CREATININE 8.26 mg/dL (0.55-1.02)
[2019-01-04 23:24] LABS: TROPONIN I < 0.015 ng/mL (0.000-0.045)
[2019-01-04] MEDS ORDERED: MORPHINE SULFATE 4 MG/ML, 1ML ONE (23:33)
[2019-01-04] MEDS: MORPHINE SULFATE 4 MG/ML, 1ML IVPush PRN (23:36)
--- NOTE | 2019-01-04 23:39 | NUR ---
CHERYL. REPORT RECEIVED FROM EMS. PT C/O CP X 3DAYS WITH SOB. HX OF DM. DIALYSIS ON M//, MISSING TODAY. [facility] [employer]. PT C/O GENERALIZED PAIN WELL. PT'S AOX4. RESPS EVEN AND UNLABORED. ALL MONITORS IN PLACE. CALL LIGHT WITHIN REACH. EDMD AT BEDSIDE TO ASSESS AT THIS TIME.
--- NOTE | 2019-01-04 23:41 | NUR ---
PT MEDICATED PER EMAR FOR PAIN. PT TOLERATED WELL. PT'S AOX4. RESPS EVEN AND UNLABORED.
--- NOTE | 2019-01-04 23:55 | NUR ---
PT REQUESTING BENADRYL D/T ICHNESS AFTER MORPHINE ADMIN. EDMD NOTIFIED.
[2019-01-04] MEDS ORDERED: AMLODIPINE 5 MG TABLET ONE (23:59)
[2019-01-04] MEDS ORDERED: DIPHENHYDRAMINE 25 MG CAPSULE ONE (23:59)
[2019-01-05] MEDS ORDERED: AMLODIPINE 5 MG TABLET PO ONE
--- NOTE | 2019-01-05 00:10 | NUR ---
EDMD ORDERED PO BENADRYL. PT REFUSED PO BENADRYL. PT REQUESTING IV BENADRYL. EDMD REFUSED AND PT NOTIFIED AT THIS TIME.
[2019-01-05] MEDS ORDERED: HEPARIN 5,000 UNITS/ML, 1ML ONE ×2 (00:19→07:47)
[2019-01-05] MEDS ORDERED: HEPARIN 25,000 UNITS/500ML PMX 500 ML ONE (00:20)
[2019-01-05] MEDS ORDERED: HEPARIN 25,000 UNITS/500ML PMX 500 ML IV PRN (00:30)
[2019-01-05] MEDS ORDERED: AMLODIPINE 10 MG TAB PO ONE (00:30)
[2019-01-05] MEDS ORDERED: HEPARIN 5,000 UNITS/ML, 1ML IV PRN (00:30)
[2019-01-05] MEDS ORDERED: HEPARIN 5,000 UNITS/ML, 1ML IV ONE (00:30)
[2019-01-05] MEDS ORDERED: MORPHINE SULFATE 4 MG/ML, 1ML ONE (00:35)
[2019-01-05] MEDS: MORPHINE SULFATE 4 MG/ML, 1ML IVPush PRN (00:39)
--- NOTE | 2019-01-05 00:54 | NUR ---
PT REQUESTING PAIN MED. PT GIVEN PAIN MED PER EMAR. PT TOLERATED WELL. HEPARIN DRIP INITIATED PER PROTOCOL.
--- NOTE | 2019-01-05 01:11 | NUR ---
PT'S PAIN LEVEL IS THE SAME 8/10 AT THIS TIME. EDMD NOTIFIED.
[2019-01-05] MEDS ORDERED: HYDROmorphone 1 MG/ML, 1ML ONE (01:15)
--- NOTE | 2019-01-05 01:21 | NUR ---
PT MEDICATED PER EMAR FOR PAIN. PT TOLERATED WELL.
[2019-01-05] MEDS ORDERED: HYDROmorphone 1 MG/ML, 1ML IM ONE (01:30)
--- NOTE | 2019-01-05 01:37 | NUR ---
PT'S PAIN LEVEL REDUCED TO 5/10 AT THIS TIME. PT RESTING IN [facility]. PT'S AOX4. RESPS EVEN AND UNLABORED. ALL MONITORS IN PLACE. CALL LIGHT WITHIN REACH.
[2019-01-05] MEDS ORDERED: HYDROcodone/APAP 5/325 TABLET PO PRN (03:30)
[2019-01-05] MEDS ORDERED: BISACODYL 10 MG SUPP PR PRN (03:30)
[2019-01-05] MEDS ORDERED: DIPHENHYDRAMINE 25 MG CAPSULE PO PRN (03:30)
[2019-01-05] MEDS ORDERED: LIDODERM 5% PATCH TD SCH (03:30)
[2019-01-05] MEDS ORDERED: DOCUSATE 100 MG CAPSULE PO PRN (03:30)
[2019-01-05] MEDS ORDERED: NITROGLYCERIN 0.4 MG BOTTLE (25 TABS) SL PRN (03:30)
[2019-01-05] MEDS ORDERED: ACETAMINOPHEN 325 MG TABLET PO PRN (03:30)
[2019-01-05] MEDS ORDERED: hydrALAzine 20 MG/ML, 1ML IVPush PRN (03:30)
[2019-01-05] MEDS ORDERED: INSULIN GLARGINE 100 UNITS/ML, PEN SQ-INSULIN SCH (03:30)
[2019-01-05] MEDS ORDERED: POLYETHYLENE GLYCOL 17 GM PACKET PO PRN (03:30)
[2019-01-05] MEDS ORDERED: LABETALOL 5 MG/ML SYRINGE IVPush PRN (03:30)
--- NOTE | 2019-01-05 03:32 | NUR ---
REPORT GIVEN TO CORAZON LESLIE. ALL QUESTIONS ANSWERED.
[2019-01-05 03:59] VITALS: BP 188/90
[2019-01-05] MEDS ORDERED: hydrALAzine 20 MG/ML, 1ML IV ONE (04:00)
[2019-01-05] MEDS ORDERED: LIDODERM 5% PATCH TD ONE (04:26)
[2019-01-05] MEDS ORDERED: OXYcodone/APAP 5/325MG TABLET ONE ×2 (04:27→09:25)
[2019-01-05] MEDS ORDERED: DIPHENHYDRAMINE 50 MG CAPSULE ONE (04:27)
[2019-01-05] MEDS ORDERED: hydrALAzine 20 MG/ML, 1ML ONE (04:28)
[2019-01-05] MEDS: OXYcodone/APAP 5/325MG TABLET PO PRN ×2 (04:32→09:27)
[2019-01-05 04:36] LABS: TROPONIN I < 0.015 ng/mL (0.000-0.045)
[2019-01-05] MEDS ORDERED: DIPHENHYDRAMINE 50 MG CAPSULE PO PRN (06:02)
[2019-01-05] MEDS: INSULIN LISPRO 100 UNITS/ML, PEN SQ-INSULIN SCH ×2 (07:01→12:53)
[2019-01-05 08:40] VITALS: BP 146/74
[2019-01-05] MEDS ORDERED: ISONIAZID 300 MG TABLET PO SCH (09:00)
[2019-01-05] MEDS ORDERED: AMLODIPINE 10 MG TAB PO SCH (09:00)
[2019-01-05] MEDS ORDERED: PYRIDOXINE 50MG TABLET PO SCH (09:00)
[2019-01-05] MEDS ORDERED: OMNIPAQUE 350 MG/ML, 100ML BOTTLE ONE (09:09)
[2019-01-05 10:21] LABS: TROPONIN I < 0.015 ng/mL (0.000-0.045)
--- NOTE | 2019-01-05 11:45 | NUR ---
MOVED PATIENT TO ROOM 1 FOR PLUMBING HOOK-UPS FOR DIALYSIS.
--- NOTE | 2019-01-05 11:53 | NUR ---
PAGED [facility] DR. LYNN PATIENT IS REQUESTING IV BENADRYL AND DILAUDID FOR PAIN. AWATING CALL-BACK.
--- NOTE | 2019-01-05 11:59 | NUR ---
DR. DRIVER CALLED BACK. NO IV BENADRYL OR OTHER PAIN MEDICINE TO BE ORDERED.
[2019-01-05] MEDS ORDERED: DIPHENHYDRAMINE 25 MG CAPSULE PO ONE ×2 (13:00)
[2019-01-05 14:05] VITALS: BP 133/70
--- NOTE | 2019-01-05 14:09 | NUR ---
VS UPDATED AND WNL. PT ATE 50% OF HER LUNCH. PATIENT ASKING FOR IV PAIN MEDICINE AND IV BENADRYL. REMINDED PATIENT THAT DR. DRIVER IS NOT ORDERING THOSE MEDS AT THIS TIME. CALLED PATIENT'S DIALYSIS OFFICE, [facility] , TO REQUEST AN APPOINTMENT FOR TOMORROW MORNING. PATIENT HAS AN APPOINTMENT AT 10AM. [facility] TO CALL WITH AN EARLIER APPOINTMENT IF THEY HAVE A CANCELLATION.
--- NOTE | 2019-01-05 14:15 | NUR ---
CALLED MARIAMA LEWIS, IN THE [facility]' DIALYSIS ROOM. PATIENT IS ON THEIR LIST FOR DIALYSIS TO BE DONE TODAY IN THE ED BUT PATIENT GOT BUMPED TO LATER DUE TO ANOTHER CRITICAL PATIENT.
--- NOTE | 2019-01-05 14:40 | NUR ---
TASK RN: PT SITTING UP IN GURNEY W/ EYES CLOSED. NAD NOTED. EVEN/REGULAR RESPIRATIONS NOTED. BP/SPO2/ECG MONITORING IN PLACE. NSR ON MONITOR. POC IS DIALYSIS IN ED THEN DC. AWAITING DIALYSIS TEAM
--- NOTE | 2019-01-05 15:14 | NUR ---
PAGED DR. DRIVER WITH [facility]. PATIENT IS REQUESTING OXYCODONE WITHOUT THE TYLENOL. PATIENT STATES THAT THE TYLENOL IN THE PERCOCET THAT SHE TOOK EARLIER CAUSED SOME THROAT SWELLING. DR. DRIVER STATES THAT SHE IS NOT GOING TO ORDER ANY NARCOTICS. AWAITING DIALYSIS.
--- NOTE | 2019-01-05 16:23 | NUR ---
PATIENT CALLED RN TO HER ROOM. PATIENT TOLD THIS RN THAT SHE WANTED TO LEAVE AND THAT SHE DID NOT WANT TO WAIT FOR DIALYSIS, SINCE WE ARE NOT HELPING HER LEFT ARM PAIN. DR. DRIVER NOTIFIED. PATIENT SIGNED AMA FORM. PATIENT WAS UNWILLING TO WAIT FOR HER DISCHARGE PAPERWORK FROM THE [facility]. ESCORTED PATIENT TO THE LOBBY FOR HER SAFETY WHERE SHE IS WAITING FOR HER TO ARRIVE AND PICK HER UP.
[2019-01-05] MEDS ORDERED: ATORVASTATIN 40 MG TABLET PO SCH (21:00)
== END 2019-01-05 16:27 | disposition left against medical advice (07) ==
LOC: ED 23:52 → UNDOADMIN 23:57 → EDIP 23:57 → ED 01-05 16:27
DX: R07.89 Other chest pain (principal); I26.99 Other pulmonary embolism without acute cor pulmonale; I12.9 Hypertensive chronic kidney disease with stage 1 through stage 4 chronic kidney disease, or unspecified chronic kidney disease; E11.22 Type 2 diabetes mellitus with diabetic chronic kidney disease; N18.3 Chronic kidney disease, stage 3 (moderate); Z99.2 Dependence on renal dialysis; Z90.710 Acquired absence of both cervix and uterus; Z90.49 Acquired absence of other specified parts of digestive tract
CPT/HCPCS: 71045; 71275; 80048; 82040; 82962; 83605; 83880; 84484; 85025; 85379; 85520; 93005; 93971; 96365; 96366; 96372; 96375; 96376; 99284; J0360; J1170; J1644; J1815; Q0163; Q9967

== ENCOUNTER 2019-02-20 09:40 | Emergency (ER) | payer MEDICARE, MEDICAID ==
[~2019-02-20] VITALS: Ht 165.1 cm; Wt 81.0 kg
--- NOTE | 2019-02-20 10:11 | NUR ---
Pt seen by PIT: in radiology then will go to room 41.
--- NOTE | 2019-02-20 10:20 | NUR ---
pt to room from XR, changed into gown, upright on gurney awake & calm, responds approp to staff, comfort measures provided, at BS, call light within reach.
[2019-02-20 10:56] LABS: MICROSCOPIC INDICATED
[2019-02-20 11:01] VITALS: BP 155/81
--- NOTE | 2019-02-20 11:02 | NUR ---
pt remains upright on gurney awake & calm, responds approp to staff, NAD, comfort measures provided, at BS, call light within reach.
[2019-02-20 11:05] LABS: CULTURE INDICATED? NO
[2019-02-20 11:07] LABS: BASOPHILS # (AUTO) 0.06 x10^3/uL (0-0.1); BASOPHILS % (AUTO) 1 % (0-1); EOSINOPHILS # (AUTO) 0.98 x10^3/uL (0-0.4); EOSINOPHILS % (AUTO) 9 % (1-7); LYMPHOCYTES # (AUTO) 1.31 x10^3/uL (1-3.4); LYMPHOCYTES % (AUTO) 11 % (22-44); MD NO; MEAN CORPUSCULAR HEMOGLOBIN 32.5 pg (27.0-34.8); MEAN CORPUSCULAR VOLUME 95.6 fL (80-100); MEAN PLATELET VOLUME 8.3 fL (7.4-10.4); MONOCYTES % (AUTO) 4 % (2-9); NEUTROPHILS # (AUTO) 8.74 x10^3/uL (1.8-6.8); NEUTROPHILS % (AUTO) 75 % (42-75); PLATELET COUNT 291 x10^3/uL (130-400); RED BLOOD COUNT 3.28 x10^6/uL (3.82-5.3); RED CELL DISTRIBUTION WIDTH 14.6 % (9.6-15.2)
[2019-02-20 11:13] LABS: ALANINE AMINOTRANSFERASE 13 U/L (12-78); ALBUMIN 3.3 g/dL (3.4-5.0); ANION GAP 14 mmol/L (5-15); CALCIUM 9.1 mg/dL (8.5-10.1); CHLORIDE 103 mmol/L (98-107); CREATININE 8.71 mg/dL (0.55-1.02)
[2019-02-20 11:15] LABS: ALKALINE PHOSPHATASE 111 U/L (45-117); BILIRUBIN,TOTAL 0.4 mg/dL (0.2-1.0); TOTAL PROTEIN 7.6 g/dL (6.4-8.2)
--- NOTE | 2019-02-20 12:05 | NUR ---
Patient given discharge instructions and they have confirmed that they understand the instructions. Patient ambulatory with steady gait.
== END 2019-02-20 12:27 | disposition home or self-care (01) ==
LOC: ED 11:10
DX: R07.2 Precordial pain (principal); R10.12 Left upper quadrant pain; R05 Cough; I10 Essential (primary) hypertension; E11.9 Type 2 diabetes mellitus without complications; R50.9 Fever, unspecified
CPT/HCPCS: 36415; 71046; 76700; 80053; 81001; 83690; 85025; 99284

== ENCOUNTER 2020-01-01 06:32 | Emergency (ER) | payer MEDICARE, MEDICAID ==
[~2020-01-01] VITALS: Ht 165.1 cm; Wt 78.7 kg
[~2020-01-01 06:32] MED LIST changes: -IRBE150T25 PO; +IRBE150T9 PO
[2020-01-01] MEDS ORDERED: HYDROmorphone 1 MG/ML, 1ML INJ IM ONE (07:30)
[2020-01-01] MEDS ORDERED: ONDANSETRON ODT 4 MG PO ONE (07:30)
[2020-01-01] MEDS ORDERED: DIPHENHYDRAMINE 50 MG/ML, 1ML IM ONE (07:30)
[2020-01-01] MEDS ORDERED: DIPHENHYDRAMINE 50 MG/ML, 1ML ONE (07:34)
[2020-01-01] MEDS ORDERED: HYDROmorphone 2 MG/ML, 1ML ONE (07:34)
[2020-01-01] MEDS ORDERED: ONDANSETRON ODT 4 MG ONE (07:34)
[2020-01-01 08:11] LABS: BASOPHILS # (AUTO) 0.05 x10^3/uL (0-0.1); BASOPHILS % (AUTO) 1 % (0-1); EOSINOPHILS # (AUTO) 0.19 x10^3/uL (0-0.4); EOSINOPHILS % (AUTO) 2 % (1-7); LYMPHOCYTES % (AUTO) 19 % (22-44); MD NO; MEAN CORPUSCULAR HGB CONC 32.8 g/dL (32.4-35.8); MEAN CORPUSCULAR VOLUME 97.6 fL (80-100); MEAN PLATELET VOLUME 7.4 fL (7.4-10.4); MONOCYTES # (AUTO) 0.43 x10^3/uL (0.2-0.8); MONOCYTES % (AUTO) 5 % (2-9); NEUTROPHILS # (AUTO) 6.86 x10^3/uL (1.8-6.8); NEUTROPHILS % (AUTO) 74 % (42-75); PLATELET COUNT 323 x10^3/uL (130-400); RED BLOOD COUNT 3.42 x10^6/uL (3.82-5.3); RED CELL DISTRIBUTION WIDTH 14.7 % (9.6-15.2)
[2020-01-01 08:22] LABS: ALANINE AMINOTRANSFERASE 12 U/L (12-78); ALBUMIN 3.2 g/dL (3.4-5.0); ANION GAP 12 mmol/L (5-15); CALCIUM 8.5 mg/dL (8.5-10.1); CHLORIDE 99 mmol/L (98-107); CREATININE 9.01 mg/dL (0.55-1.02)
[2020-01-01 08:24] LABS: ALKALINE PHOSPHATASE 106 U/L (45-117); BILIRUBIN,TOTAL 0.4 mg/dL (0.2-1.0); TOTAL PROTEIN 7.7 g/dL (6.4-8.2)
[2020-01-01 09:15] VITALS: BP 167/71
--- NOTE | 2020-01-01 09:20 | NUR ---
PT DENIES NAUSEA SINCE MEDICATED AND CONTINUES TO HAVE ABDOMINAL PAIN 06/24
--- NOTE | 2020-01-01 10:10 | NUR ---
REPORT TO TORRIE LESLIE
--- NOTE | 2020-01-01 10:14 | NUR ---
REPORT FROM SAYDA
--- NOTE | 2020-01-01 11:20 | NUR ---
DPatient/Caregiver given discharge instructions and they have confirmed that they understand the instructions. Patient ambulatory with steady gait.
== END 2020-01-01 11:23 | disposition home or self-care (01) ==
LOC: ED 09:03
DX: R10.13 Epigastric pain (principal); R10.12 Left upper quadrant pain; I10 Essential (primary) hypertension; R11.2 Nausea with vomiting, unspecified; E11.9 Type 2 diabetes mellitus without complications; G43.909 Migraine, unspecified, not intractable, without status migrainosus; E87.5 Hyperkalemia; E78.5 Hyperlipidemia, unspecified; R00.0 Tachycardia, unspecified
CPT/HCPCS: 36415; 74176; 80053; 83690; 83735; 85025; 93005; 96372; 99285; J1170; J1200; Q0162

== ENCOUNTER 2021-03-05 01:00 | Emergency (ER) | payer MEDICAID, MEDICARE ==
[~2021-03-05] VITALS: Ht 165.1 cm; Wt 72.0 kg
[~2021-03-05 01:00] MED LIST changes: -ALPR0.5T6 PO; +ALPR0.5T93 PO; +AMLO-211 PO; -AMLO10TA8 PO; -CIPR500T3 PO; +CIPR500T4 PO; +HYDR-2214 PO; -HYDR-3240 PO; -LISI40TA PO; +LISI40TA9 PO; -OXYC-302 PO; -OXYC-432 PO; +OXYC1TAB14 PO; +OXYC1TAB18 PO; -OXYC5TAB3 PO; +OXYC5TAB98 PO
--- NOTE | 2021-03-05 01:10 | NUR ---
ALBINO AT BEDSIDE FOR EVAL
--- NOTE | 2021-03-05 01:13 | NUR ---
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
[2021-03-05] MEDS ORDERED: DIPHENHYDRAMINE 50 MG/ML, 1ML ONE (01:20)
[2021-03-05] MEDS ORDERED: MORPHINE SULFATE 4 MG/ML, 1ML ONE ×2 (01:20→02:02)
[2021-03-05] MEDS ORDERED: DIPHENHYDRAMINE 50 MG/ML, 1ML IVPush ONE (01:30)
[2021-03-05] MEDS ORDERED: SODIUM CHLORIDE 0.9% 1,000ML IVBOLUS ONE (01:30)
[2021-03-05] MEDS ORDERED: SODIUM CHLORIDE FLUSH 10ML SYR IVF ONE (01:30)
[2021-03-05] MEDS ORDERED: PROMETHAZINE 25 MG/ML, 1ML IM ONE (01:30)
[2021-03-05] MEDS: MORPHINE SULFATE 4 MG/ML, 1ML IVPush PRN ×2 (01:33→02:07)
--- NOTE | 2021-03-05 01:34 | NUR ---
PIV PLACED-LABS DRAWN MEDICATED PER EMAR FOR RIGHT FLANK PAIN AT 08/[address] AT 0134A
[2021-03-05 01:37] LABS: BASOPHILS % (AUTO) 2 % (0-1); EOSINOPHILS % (AUTO) 3 % (1-7); LYMPHOCYTES % (AUTO) 22 % (22-44); MEAN CORPUSCULAR HGB CONC 32.9 g/dL (32.4-35.8); MEAN PLATELET VOLUME 7.3 fL (7.4-10.4); MONOCYTES % (AUTO) 5 % (2-9); NEUTROPHILS % (AUTO) 68 % (42-75); PLATELET COUNT 366 x10^3/uL (130-400); RED BLOOD COUNT 2.86 x10^6/uL (3.82-5.3); RED CELL DISTRIBUTION WIDTH 13.9 % (9.6-15.2)
[2021-03-05 01:38] LABS: MD NO
[2021-03-05 01:45] LABS: ALANINE AMINOTRANSFERASE 23 U/L (12-78); ALBUMIN 4.1 g/dL (3.4-5.0); ANION GAP 11 mmol/L (5-15); CALCIUM 9.9 mg/dL (8.5-10.1); CHLORIDE 95 mmol/L (98-107); CREATININE 6.71 mg/dL (0.55-1.02)
[2021-03-05 01:48] LABS: ALKALINE PHOSPHATASE 142 U/L (45-117); BILIRUBIN,TOTAL 0.3 mg/dL (0.2-1.0); TOTAL PROTEIN 8.6 g/dL (6.4-8.2)
[2021-03-05 01:54] VITALS: BP 170/75
--- NOTE | 2021-03-05 01:54 | NUR ---
INITIALLY PAIN IMPROVED. HOWEVER NOW PAIN WORSENING CC UA WALKED TO LAB 1L NS STARTED
[2021-03-05] MEDS ORDERED: PROMETHAZINE 25 MG/ML, 1ML ONE (02:02)
[2021-03-05 02:12] LABS: MICROSCOPIC AUTO
[2021-03-05] MEDS ORDERED: FURO20TA3 PO (02:20)
[2021-03-05] MEDS ORDERED: SEVE800T7 PO (02:20)
[2021-03-05] MEDS ORDERED: TOPI50TA8 PO (02:20)
[2021-03-05] MEDS ORDERED: VENL37.57 PO (02:20)
[2021-03-05] MEDS ORDERED: NITROFURANTOIN (MACROBID) 100 MG CAPSULE PO ONE (02:30)
--- NOTE | 2021-03-05 02:38 | NUR ---
ATTEMPTED TO CALL PATIENT'S SON (ELISABETH [phone]) FOR RIDE HOME/OPEN APARTMENT DOOR. VOICEMAIL LEFT.
== END 2021-03-05 02:53 | disposition home or self-care (01) ==
LOC: ED 01:57
DX: N10 Acute pyelonephritis (principal); I12.9 Hypertensive chronic kidney disease with stage 1 through stage 4 chronic kidney disease, or unspecified chronic kidney disease; N18.30 Chronic kidney disease, stage 3 unspecified; E11.65 Type 2 diabetes mellitus with hyperglycemia; N39.0 Urinary tract infection, site not specified; R00.0 Tachycardia, unspecified; G43.909 Migraine, unspecified, not intractable, without status migrainosus; G89.29 Other chronic pain; Z90.89 Acquired absence of other organs; Z90.710 Acquired absence of both cervix and uterus
CPT/HCPCS: 36415; 74176; 80053; 81001; 85025; 87086; 96361; 96372; 96374; 96375; 96376; 99285; J1200; J2270; J2550; J7030

== ENCOUNTER 2021-03-05 10:44 | Emergency (ER) | payer MEDICARE ==
[~2021-03-05] VITALS: Ht 167.6 cm; Wt 74.0 kg
[~2021-03-05 10:44] MED LIST changes: +FURO20TA3 PO; +SEVE800T7 PO; +TOPI50TA8 PO; +VENL37.57 PO
[2021-03-05 11:50] LABS: BASOPHILS % (AUTO) 1 % (0-1); EOSINOPHILS % (AUTO) 3 % (1-7); LYMPHOCYTES % (AUTO) 23 % (22-44); MEAN CORPUSCULAR HEMOGLOBIN 33.7 pg (27.0-34.8); MEAN CORPUSCULAR HGB CONC 32.5 g/dL (32.4-35.8); MEAN PLATELET VOLUME 7.3 fL (7.4-10.4); MONOCYTES % (AUTO) 5 % (2-9); NEUTROPHILS % (AUTO) 68 % (42-75); PLATELET COUNT 371 x10^3/uL (130-400); RED BLOOD COUNT 2.54 x10^6/uL (3.82-5.3); RED CELL DISTRIBUTION WIDTH 13.8 % (9.6-15.2)
[2021-03-05 11:55] LABS: MD NO
--- NOTE | 2021-03-05 11:58 | NUR ---
PT BROUGHT BACK TO ROOM FROM LOBBY VIA WHEELCHAIR. PT STATED THAT SHE WENT TO DIALYSIS THIS MORNING AND HER FISTULA WAS NOT WORKING. DR. EASTMAN TOLD PT TO GOT TO ER. PT STATED THAT SHE WAS ALSO SEEN IN THE ED YESTERDAY FOR A "KIDNEY INFECTION." PT STATED THAT SHE IS HAVING RIGHT FLANK PAIN.
[2021-03-05 12:01] LABS: ALBUMIN 3.9 g/dL (3.4-5.0); ANION GAP 10 mmol/L (5-15); CALCIUM 9.4 mg/dL (8.5-10.1); CHLORIDE 98 mmol/L (98-107)
[2021-03-05 12:06] LABS: ALANINE AMINOTRANSFERASE 16 U/L (12-78); ALKALINE PHOSPHATASE 95 U/L (45-117); BILIRUBIN,TOTAL 0.3 mg/dL (0.2-1.0); CREATININE 7.23 mg/dL (0.55-1.02); TOTAL PROTEIN 7.8 g/dL (6.4-8.2)
--- NOTE | 2021-03-05 13:05 | NUR ---
dr levy spoke with dr tee
[2021-03-05 13:13] VITALS: BP 170/76
[2021-03-05] MEDS ORDERED: HYDROmorphone 1 MG/ML, 1ML INJ ONE (13:43)
--- NOTE | 2021-03-05 13:45 | NUR ---
US AT BEDSIDE
[2021-03-05] MEDS ORDERED: CHLORHEXIDINE 15 ML UDC ONE (13:51)
[2021-03-05] MEDS ORDERED: HYDROmorphone 1 MG/ML, 1ML INJ IV ONE (14:00)
[2021-03-05] MEDS ORDERED: CHLORHEXIDINE 15 ML UDC PO ONE (14:00)
--- NOTE | 2021-03-05 14:15 | NUR ---
PT TO OR
--- NOTE | 2021-03-05 14:33 | NUR ---
PT BACK TO ROOM, PROCEDURE CANCELLED
--- NOTE | 2021-03-05 15:14 | NUR ---
DISCHARGE INSTRUCTIONS REVIEWED WITH PT. ALL QUESTIONS ANSWERED AT THIS TIME
== END 2021-03-05 15:16 | disposition home or self-care (01) ==
LOC: OR 13:25
DX: M79.651 Pain in right thigh (principal); Z20.822 Contact with and (suspected) exposure to COVID-19; L98.8 Other specified disorders of the skin and subcutaneous tissue; R10.30 Lower abdominal pain, unspecified; I12.0 Hypertensive chronic kidney disease with stage 5 chronic kidney disease or end stage renal disease; N18.6 End stage renal disease; Z99.2 Dependence on renal dialysis
CPT/HCPCS: 36415; 80053; 83690; 85025; 87635; 93926; 96374; 99284; J1170

== ENCOUNTER 2021-07-26 23:37 | Emergency (ER) | payer MEDICARE ==
[~2021-07-26] VITALS: Ht 165.1 cm; Wt 75.7 kg
[~2021-07-26 23:37] MED LIST changes: +OXYC1TAB12 PO; -OXYC1TAB14 PO; +SULF-23 PO; -SULF1TAB24 PO
[2021-07-27] MEDS ORDERED: SODIUM CHLORIDE FLUSH 10ML SYR IVF ONE
[2021-07-27 00:58] LABS: ALANINE AMINOTRANSFERASE 13 U/L (12-78); ALBUMIN 3.5 g/dL (3.4-5.0); ANION GAP 14 mmol/L (5-15); CALCIUM 8.1 mg/dL (8.5-10.1); CHLORIDE 97 mmol/L (98-107); CREATININE 9.41 mg/dL (0.55-1.02)
[2021-07-27 01:01] LABS: ALKALINE PHOSPHATASE 110 U/L (45-117); BILIRUBIN,TOTAL 0.3 mg/dL (0.2-1.0)
[2021-07-27 01:15] LABS: BASOPHILS % (AUTO) 1 % (0-1); EOSINOPHILS % (AUTO) 6 % (1-7); LYMPHOCYTES % (AUTO) 21 % (22-44); MEAN CORPUSCULAR HEMOGLOBIN 33.2 pg (27.0-34.8); MEAN CORPUSCULAR HGB CONC 32.6 g/dL (32.4-35.8); MEAN PLATELET VOLUME 7.8 fL (7.4-10.4); MONOCYTES % (AUTO) 9 % (2-9); NEUTROPHILS % (AUTO) 63 % (42-75); PLATELET COUNT 306 x10^3/uL (130-400); RED BLOOD COUNT 3.23 x10^6/uL (3.82-5.3); RED CELL DISTRIBUTION WIDTH 15.7 % (9.6-15.2)
[2021-07-27 08:24] VITALS: BP 143/62
--- NOTE | 2021-07-27 09:38 | NUR ---
NO ANSWER IN LOBBY
--- NOTE | 2021-07-27 09:46 | NUR ---
NO ANSWER IN THE LOBBY
--- NOTE | 2021-07-27 09:53 | NUR ---
NO ANSWER IN LOBBY
== END 2021-07-27 09:55 | disposition left against medical advice (07) ==
LOC: ED 07-27 09:14
DX: M79.662 Pain in left lower leg (principal); M79.89 Other specified soft tissue disorders; R11.10 Vomiting, unspecified
CPT/HCPCS: 36415; 80053; 85025; 93005; 99285